=== PATIENT | male | born 1940 | race Caucasian/White ===

== ENCOUNTER 2017-06-23 23:37 | Inpatient (IN) | payer MEDICARE ==
[~2017-06-23] VITALS: Ht 175.3 cm; Wt 89.6 kg
[~2017-06-23 23:37] MED LIST: ASPI81TA82 PO; ATEN-102 PO; CALCTAB23 PO; COZA50TA PO; FERR1TAB7 PO; HYDR-3580 PO; LOVA40TA PO; PRIL20TA2 PO; RIVA10 PO; TAB-TAB PO; VITA10004 PO; Z.0.COMMODE-3:1; Z.0.WALKERFRONT
[2017-06-23 23:44] VITALS: BP 213/91; PULSE 74; RESP 18; TEMP 98; O2SAT 94
[2017-06-23] MEDS ORDERED: ASPI81CH25 PO (23:49)
[2017-06-23] MEDS ORDERED: ATEN25TA PO (23:50)
[2017-06-23] MEDS ORDERED: CALC500T43 PO (23:50)
[2017-06-23] MEDS ORDERED: VITA10002 PO (23:51)
[2017-06-23] MEDS ORDERED: LOVA40TA PO (23:51)
[2017-06-23] MEDS ORDERED: MULT1TAB64 (23:52)
[2017-06-24] VITALS (9 sets, daily range): BP systolic 105–195; BP diastolic 52–93; PULSE 52–79; RESP 16–22; TEMP 96.7–98.8; O2SAT 92–99
--- NOTE | 2017-06-24 00:24 | PD ---
HPI Chief Complaint: Fall Time Seen by Provider: 00:23 Travel History International Travel<30 days: No Contact w/Intl Traveler<30days: No Traveled to known affect area: No History of Present Illness HPI 76-year-old male arrives to the ER as a transfer from [facility] / cervical spine fractures caused by fall from a one single story rooftop. In ER he complains of pain in the region of the lower cervical spine and lower back which she attributes to the hard backboard. He describes chronic numbness and tingling in the hands bilaterally, worse on the right side no worse since the fall today. Pt takes aspirin, no anticoagulant otherwise. + Hx Afib and CABG. Pt accepted by trauma surgery as a transfer. Imaging from outside facility reveals nondisplaced fracture of the superior articular process of L1 and mildly displaced fractures of the bilateral L1 transverse processes and a nondisplaced fracture of the left posterior 12th rib. Thoracic spine CT reveals unstable 3 column fracture involving the T12 and L1 vertebral bodies as well as a nondisplaced fracture of the right T10 transverse process. Incidental note is made of diffuse ankylosis of the spine and potentially consistent with ankylosing spondylitis. CT cervical spine reveals fractures through the ventral bridging osteophyte of the C7 vertebral bodies with extension into the anterior inferior third of the vertebral body itself. There is a fracture through the C5 and C6 potential endplate osteophytes with minimal extension into the vertebral bodies anteriorly. Patient arrives with a [place] collar on. PFSH Past Medical History Cancer: No Cardiovascular Problems: Yes ([place]/ CABG (2003)) Diabetes: No (BORDERLINE) Endocrine: Yes Gastrointestinal Disorders: Yes (GERD) Genitourinary: Yes ([place]URIA) Hepatitis: No Hiatal Hernia: Yes Hypertension: Yes Immune Disorder: No Neurologic: No Psychiatric: No Respiratory: No Thyroid Disease: No Tetanus Vaccination: Unknown Influenza Vaccination: Yes Past Surgical History Abdominal Surgery: Yes (APPY) AICD: No Cardiac Surgery: Yes (CABG) Joint Replacement: No Pacemaker: No Other Surgery: Yes Social History Alcohol Use: Yes (occasional ) Tobacco Use: No Substance Use: No Allergies-Medications (Allergen,Severity, Reaction): Coded Allergies: meloxicam (Unverified Allergy, Unknown, WEAKNESS, 03/18/17) Uncoded Allergies: MERTHIOLATE (Allergy, Severe, RASH, 03/25/16) Reported Meds & Prescriptions Reported Meds & Active Scripts Active Reported Lovastatin 40 Mg Tab 40 Mg PO DAILY Calcium/Vitamin D (Calcium Carbonate-Vitamin D) 500-200 Mg-Unit Tab 1 Tab PO HS Atenolol 25 Mg Tab 25 Mg PO DAILY Review of Systems Except as stated in HPI: all other systems reviewed are Neg Physical Exam Narrative GENERAL: 76-year-old male well-nourished well-developed mild distress secondary to pain SKIN: Focused skin assessment warm/dry. HEAD: Atraumatic. Normocephalic. EYES: Pupils equal and round. No scleral icterus. No injection or drainage. Contusion about the left supraorbital ridge. Minimal subconjunctival hemorrhage. No hyphema either side. ENT: No nasal bleeding or discharge. Mucous membranes pink and moist. NECK: Trachea midline. No JVD. CARDIOVASCULAR: Regular rate and rhythm. No murmur appreciated. RESPIRATORY: No accessory muscle use. Clear to auscultation. Breath sounds equal bilaterally. GASTROINTESTINAL: Abdomen soft, non-tender, nondistended. Hepatic and splenic margins not palpable. MUSCULOSKELETAL: No obvious deformities. No clubbing. No cyanosis. No edema. NEUROLOGICAL: Moving all extremities normally. No focal cranial nerve deficit. Speech memory mentation normal. PSYCHIATRIC: Appropriate mood and affect; insight and judgment normal. Data Data Last Documented VS Vital Signs Date Time Temp Pulse Resp B/P (MAP) Pulse Ox O2 Delivery O2 Flow Rate FiO2 06/23/17 23:44 98.0 74 18 213/91 (131) 94 VS reviewed; repeat BP 186/86 Orders Orders Admit Order (Ed Use Only) (06/24/17 ) Personal Banking Representative / Telemetry [email or web address] (06/24/17 00:23) Vital Signs (Adult) Q4H (06/24/17 00:23) Activity Bed Rest (06/24/17 00:23) MDM Medical Decision Making Medical Screen Exam Complete: Yes Emergency Medical Condition: Yes Differential Diagnosis C-spine fracture, T-spine fracture, rib fracture Narrative Course Patient will be admitted to the [facility]. Case discussed with Dr. Oliver Peng stable here. Pain controlled with 0.5 mg hydromorphone in ER. Reports of imaging obtained here along with CD imaging. Diagnosis Primary Impression: Cervical spine fracture Additional Impressions: Fall Qualified Codes: W19.XXXA - Unspecified fall, initial encounter Fracture of lumbar spine Qualified Codes: S32.019A - Unspecified fracture of first lumbar vertebra, initial encounter for closed fracture Admitting Information Admitting Physician Requests: Jeremie Lane MD Jun 24, 2017 00:24
[2017-06-24] MEDS ORDERED: SODIUM CHLORIDE 0.9% FLUSH 10 ML FLUSH IV FLUSH PRN (00:30)
[2017-06-24] MEDS ORDERED: NALOXONE HCL 0.4 MG/ML AMP IV PUSH PRN (00:30)
[2017-06-24] MEDS ORDERED: Post-op Orders (for Pharmacy) MISC XX ONE (00:30)
[2017-06-24] MEDS ORDERED: ONDANSETRON HCL 4 MG/2 ML VIAL IV PUSH PRN (00:30)
[2017-06-24] MEDS: SODIUM CHLOR 0.9% 1000 ML INJ 1,000 ML IV SCH (01:32)
[2017-06-24] MEDS: MORPHINE SULFATE 4 MG/ML INJ IV PUSH PRN ×3 (02:23→08:02)
[2017-06-24] MEDS: PRAVASTATIN SOD 40 MG TAB PO SCH (08:02)
[2017-06-24] MEDS: ATENOLOL 25 MG TAB PO SCH (08:02)
[2017-06-24] MEDS: LIDOCAINE HCL 5% PATCH T-DERMAL SCH (08:03)
[2017-06-24] MEDS: FAMOTIDINE 20 MG TAB PO SCH ×2 (08:03→20:20)
[2017-06-24] MEDS: DOCUSATE SODIUM 50 MG/SENNA 8.6 MG TAB PO SCH ×2 (08:03→20:20)
[2017-06-24] MEDS: ACETAMINOPHEN 1000 MG/100 ML 100 ML IV SCH ×3 (08:03→20:21)
[2017-06-24] MEDS: POLYETHYLENE GLYCOL 17 GM PKG PO SCH (08:03)
[2017-06-24] MEDS: METHOCARBAMOL 500 MG TAB PO SCH ×2 (08:03→17:16)
[2017-06-24] MEDS: oxyCODONE/ACETAMINOPHEN 5 MG/325 MG TAB PO PRN ×2 (08:19→13:56)
--- NOTE | 2017-06-24 08:22 | RADRPT ---
EXAM DATE/TIME: 06/24/2017 07:58 [place] COMPARISON: No previous studies available for comparison. INDICATIONS : Shortness of breath and chest pain. Patient is a transfer from [facility] due to cervical spine and lenin mber spine fractures. MEDICAL HISTORY : Afib. SURGICAL HISTORY : CABG. ENCOUNTER: Initial ACUITY: 1 day PAIN SCORE: 7/10 LOCATION: Bilateral chest FINDINGS: A single view of the chest demonstrates the lungs to be symmetrically aerated without evidence of mas s, infiltrate or effusion. Median sternotomy wires in place. The cardiomediastinal contours are unre markable. Somewhat tortuous thoracic aorta. Osseous structures are intact. CONCLUSION: 1. No acute cardiopulmonary disease. Osman Brumfield MD on June 24, 2017 at 8:19 Board Certified Radiologist. This report was verified electronically.
[2017-06-24] MEDS: SODIUM CHLORIDE 0.9% FLUSH 10 ML FLUSH IV FLUSH SCH ×2 (09:00→20:21)
--- NOTE | 2017-06-24 10:01 | PD.CONS ---
(Jona Newman) [facility] Service Neurosurgery Consult Requested By Dr. Larsen Reason for Consult Cervical and T12/L1 fracture Primary Care Physician Unknown History of Present Illness This is a 76 y/o M who was up on his roof which he states is 8 feet when he thinks he slipped or lost his balance. He states when he fell to the ground he never lost consciousness. He crawled into the house and asked for help. He had neck pain when he was taken to the ER in [facility] and states this is now controlled. He denies any radiculopathy into the UEs at any time. He states he has numbness in the right 1-3rd fingers in the right hand which is chronic. He denies any numbness in the left hand or upper extremities otherwise. He denies any numbness or tingling in his torso or LEs. He currently denies any thoracic or low back pain or any radicular pain into the chest or LEs. He denies any weakness after his fall although currently he is aware of his fractures and is laying flat in bed and not moving. (Jona Newman) Service Neurosurgery History of Present Illness He relates that with the pain medications his neck and low back pain is better but he does experience pain in his neck and mid back area. He has a chronic history of low back pain and usually every 6 months he has exacerbations lasting a month or so. He also complains of chronic numbness in the right median nerve distribution in the upper extremity. He relates a history of coronary artery disease with revascularization the past and is actually followed by a data warehouse analyst with a stress test 1 1/2 years an echocardiogram 6 months ago. (Mckinley Jarrett MD) Review of Systems Constitutional: DENIES: Fever Eyes: DENIES: Blurred vision, Diplopia, Double Vision Respiratory: DENIES: Cough, Wheezing, Shortness of breath Cardiovascular: DENIES: Chest pain, Syncope Gastrointestinal: DENIES: Abdominal pain, Nausea, Vomiting Musculoskeletal: COMPLAINS OF: Back pain, Neck pain Neurologic: DENIES: Headache, Localized weakness Psychiatric: DENIES: Confusion, Agitation (Jona Newman) Past Family Social History Allergies: Coded Allergies: meloxicam (Unverified Allergy, Unknown, WEAKNESS, 03/18/17) Uncoded Allergies: MERTHIOLATE (Allergy, Severe, RASH, 03/25/16) Past Medical History CAD with hx of CABG in 2003 GERD HTN Past Surgical History CABG in 2003 Right hip replacement in 2016 Appendectomy Reported Medications ASA 81mg daily Atenolol 50mg daily Calcium and Vitamin D 500mg bid Ferrous Sulfate 130mg po daily Vitamin B12 CR po daily Lovastatin 40mg po qhs MVI po daily Prilosec otc 20mg po daily Active Ordered Medications Current Medications Sodium Chloride 1,000 ml @ 80 mls/hr [id number] IV Last administered on 01:32; Start 06/24/17 at 01:00 Sodium Chloride (NS Flush) 2 ml UNSCH PRN IV FLUSH FLUSH AFTER USING IV ACCESS ; Start 06/24/17 at 00:30 Sodium Chloride (NS Flush) 2 ml BID IV FLUSH ; Start 06/24/17 at 09:00 Ondansetron HCl (Zofran Inj) 4 mg Q6H PRN IV PUSH NAUSEA OR VOMITING; Start at 00:30 Famotidine (Pepcid) 20 mg BID PO Last administered on 06/24/17 08:03; Start 06/24/17 at 09:00 Miscellaneous Information (Post-op Orders (for Pharmacy)) STAT ONCE XX ; Start 06/24/17 at 00:30; Stop 06/24/17 at 00:53; Status DC Oxycodone/ Acetaminophen (Percocet 5-325 Mg) 1 tab Q4H PRN PO PAIN SCALE 3 TO 5 Last administered on 06/24/17 08:19; Start 06/24/17 at 00:30 Morphine Sulfate (Morphine Inj) 4 mg Q3H PRN IV PUSH PAIN 6-10 Last administered on 06/24/17 08:02; Start 06/24/17 at 00:30 Naloxone HCl (Narcan Inj) 0.4 mg UNSCH PRN IV PUSH SEE LABEL COMMENTS; Start 06/24/17 at 00:30 Atenolol (Tenormin) 25 mg DAILY PO Last administered on 06/24/17 08:02; Start 06/24/17 at 09:00 Pravastatin Sodium (Pravachol) 40 mg DAILY PO Last administered on 06/24/17 08:02; Start 06/24/17 at 09:00 Acetaminophen 100 ml @ 400 mls/hr Q6H IV Last administered on 06/24/17 08:03 ; Start 06/24/17 at 08:00; Stop 06/25/17 at 07:59 Methocarbamol (Robaxin) 500 mg Q8H PO ; Start 06/24/17 at 09:00 Lidocaine HCl (Lidoderm 5% Patch.12 Hr) 1 patch DAILY T-DERMAL Last administered on 06/24/17 08:03; Start 06/24/17 at 09:00 Senna/Docusate Sodium (Deanna-Colace) 1 tab BID PO Last administered on 08:03; Start 06/24/17 at 09:00 Lactulose (Lactulose Liq) 30 ml DAILY PRN PO No BM in 2 days; Start 06/24/17 at 07:30 Polyethylene Glycol (Miralax) 17 gm DAILY PO Last administered on 06/24/17 08 :03; Start 06/24/17 at 09:00 Miscellaneous Information 1 Q24H T-DERMAL ; Start 06/24/17 at 21:00 Bacitracin (Baciguent Oint) 1 applic Q12HR TOP ; Start 06/24/17 at 10:00 Family History Noncontributory to pts current condition. Social History Pt drinks alcohol occasionally on weekends, 3-4 beers when he does. Denies smoking No illicit drug use. (Jona Newman) Physical Exam Vital Signs Vital Signs Date Time Temp Pulse Resp B/P (MAP) Pulse Ox O2 Delivery O2 Flow Rate FiO2 06/24/17 08:21 18 06/24/17 08:21 18 06/24/17 08:04 97 21 06/24/17 08:00 97 Room Air 06/24/17 04:00 98.8 77 16 152/78 (102) 94 06/24/17 02:00 06/24/17 02:00 95 Room Air 06/24/17 02:00 98.8 70 22 195/93 (127) 95 06/24/17 01:34 72 18 186/80 (115) 99 Nasal Cannula 2.00 06/23/17 23:44 98.0 74 18 213/91 (131) 94 Physical Exam General: Pt resting in bed appearing in NAD. Eyes: Pupils equal, sclera anicteric. Resp: CTA bilaterally Heart: NSR no murmurs Abd: Soft positive bs Skin: Minor abrasions and left periorbital ecchymosis around the left eye. Muscle: Moves all 4 extremities with good strength. [place] cervical collar in place. Pt on bedrest with log roll precautions. Neuro: Pt awake and alert. Pupils 3mm bilaterally, reactive bilaterally. Speech clear and appropriate. Follows commands well. Sensation intact in all 4 extremities, hx of right 1-3 numbness. Laboratory Laboratory Tests Test 06/24/17 09:00 (Jona Newman) Imaging Last Impressions Chest X-Ray 06/24/17 0000 Signed Impressions: Service Date/Time: Saturday, June 24, 2017 07:58 - CONCLUSION: 1. No acute cardiopulmonary disease. Osman Brumfield MD (Jona Newman) Imaging CT [facility] the [facility] from [facility] on 04/23/2017 did not reveal any intracranial acute abnormality. Slightly displaced nasal bone fractures noted. CT of the cervical spine reveals extensive spondylitic changes as well as the anterior inferior C5 and and anterior superior C6 vertebral body fractures. His also fracture at the C7 vertebral body. CT of the thoracic and lumbar spine spine reveals a 3 column injury at the T12- L1 vertebral body extending to the inferior aspect of the T12 and L1 superior aspect of the vertebral body into the facets with an ankylosing spondylitis break. There is a extensive multilevel ankylosing spondylitis fusion in the thoracolumbar as well as degenerative changes in the lumbar spine with facet arthropathy and osteopenia. (Mckinley Jarrett MD) Assessment and Plan Assessment and Plan A: 76 y/o M s/p fall from roof pt estimates 8-10 feet without LOC. P: Pt will maintain cervical collar at all times. He is on bedrest with log roll precautions with HOB flat. Continue with GI prophylaxis Continue with SCDs. Dr. Jarrett reviewing films from [facility] for further planning of his multiple spine fractures. (Jona Newman) Assessment and Plan 1. C5-6 vertebral body fractures involving the anterior column with preserved facet consistent with an ankylosing spondylitis break. There is also a nondisplaced C7 vertebral body anterior fracture. 2. T12/L1 chance type fracture involving all 3 columns through the inferior aspect of T12 and superior aspect of the L1 vertebral body and facet consistent with an ankylosing spondylitis break. 3. Nasal bone fracture. 4. Rib fractures. The thoracolumbar spine junction fracture is an unstable injury and it appears that the cervical fracture may potentially be unstable also given the ankylosing spondylitis breaks. We will keep him on bedrest with cervical collar and spinal logroll precautions. MRI of the cervical thoracic and lumbar spine will be obtained to evaluate for stenosis and soft tissue/ligamentous disruption. He will likely require surgical stabilization if there are no cardiac/medical issues. We will obtain an echocardiogram to assess LV function also. Discussed with the patient at length as well as trauma surgeon. (Mckinley Jarrett MD) Jona Newman Jun 24, 2017 10:01 Mckinley Jarrett MD Jun 24, 2017 16:29
--- NOTE | 2017-06-24 10:52 | PD.HHIRBSE ---
Patient History Record/History Review Reason for Referral: The patient is a 76 year old unknown handed male status post traumatic injury sustained on 06/23/2017. He fell from a single story roof. He sustained C5-6 fractures, T12 -L1 fracture, although head CT was within normal limits, and he reported no concussive symptoms. He is referred for baseline neurobehavioral status examination per trauma protocol to assess cognitive, behavioral and emotional aspects of the injury and to provide treatment recommendations. Neuropsych Precautions: To be determined. Past Surgical/Medical History Past Surgery: Yes Major surgery in last 100 days: Unknown Hx Anesthesia Reactions: No Hx Orthopedic Surgery: Yes (right hip) Hx Cardiac Surgery: Yes (3 bypass 2003) Hx Chest Surgery: No Hx Abdominal Surgery: No Hx Genitourinary Surgery: No Hx Endocrine Surgery: No Hx Eye Surgery: No Hx Ear Surgery: No Hx Oral Surgery: Yes (tooth extraction) Hx of Neuro Prob: No Hx Head Injury: Yes ( concussion) Hx Arthritis: Yes Hx of Cardiovascular Prob: Yes Hypertension (High Blood Press: Yes Hx Clotting Problems: No Hx Chest Pain: Yes Hx of Respiratory Problem: No Hx of GI Problems: Yes (GERD) Hx Hiatal Hernia: Yes Hx of Problems: Yes Hx Renal Disease: No Hx Prostate Problems: Yes (enlarged) Hx of Immuno Disor: No Hx Autoimmune Disease: No Hx of Endocrine Problems: Yes Hx Thyroid Disease: No Hx Diabetes: No (borderline) Hx of Hearing or Ear Problems: Yes ([place] Hard of Hearing: Bilateral Hx Dental Problems: Yes Hx Psychiatric Problems: No Hx Blood Dyscrasias: No Hx of MDRO: No Hx of MRSA: No Hx of VRE: No Hx of CDIFF: No Hx of Tuberculosis: No Hx Pacemaker: No Hx Internal Defibrillator: No Hx Joint Replacement: Yes (hip replacement) Blood Transfusion History Will receive Blood /Blood prod: Yes Hx Blood Transfusions: Yes Hx Blood Transfusion Reaction: No Medication Active Medications Acetaminophen 100 ml @ 400 mls/hr Q6H IV Last administered on 06/24/17 08:03 ; Admin Dose 400 MLS/HR; Start 06/24/17 at 08:00; Stop 06/25/17 at 07:59 Atenolol (Tenormin) 25 mg DAILY PO Last administered on 06/24/17 08:02; Admin Dose 25 MG; Start 06/24/17 at 09:00 Bacitracin (Baciguent Oint) 1 applic Q12HR TOP; Start 06/24/17 at 10:00 Famotidine (Pepcid) 20 mg BID PO Last administered on 06/24/17 08:03; Admin Dose 20 MG; Start 06/24/17 at 09:00 Lactulose (Lactulose Liq) 30 ml DAILY PRN PO; Start 06/24/17 at 07:30 Lidocaine HCl (Lidoderm 5% Patch.12 Hr) 1 patch DAILY T-DERMAL Last administered on 06/24/17 08:03; Admin Dose 1 PATCH; Start 06/24/17 at 09:00 Methocarbamol (Robaxin) 500 mg Q8H PO Last administered on 06/24/17 08:03; Admin Dose 500 MG; Start 06/24/17 at 09:00 Miscellaneous Information 1 Q24H T-DERMAL; Start 06/24/17 at 21:00 Miscellaneous Information (Post-op Orders (for Pharmacy)) STAT ONCE XX; Start 06/24/17 at 00:30; Stop 06/24/17 at 00:53; Status DC Morphine Sulfate (Morphine Inj) 4 mg Q3H PRN IV PUSH Last administered on 06/24 08:02; Admin Dose 4 MG; Start 06/24/17 at 00:30 Naloxone HCl (Narcan Inj) 0.4 mg UNSCH PRN IV PUSH; Start 06/24/17 at 00:30 Ondansetron HCl (Zofran Inj) 4 mg Q6H PRN IV PUSH; Start 06/24/17 at 00:30 Oxycodone/ Acetaminophen (Percocet 5-325 Mg) 1 tab Q4H PRN PO Last administered on 06/24/17 08:19; Admin Dose 1 TAB; Start 06/24/17 at 00:30 Polyethylene Glycol (Miralax) 17 gm DAILY PO Last administered on 06/24/17 08: 03; Admin Dose 17 GM; Start 06/24/17 at 09:00 Pravastatin Sodium (Pravachol) 40 mg DAILY PO Last administered on 06/24/17 08 :02; Admin Dose 40 MG; Start 06/24/17 at 09:00 Senna/Docusate Sodium (Deanna-Colace) 1 tab BID PO Last administered on 08:03; Admin Dose 1 TAB; Start 06/24/17 at 09:00 Sodium Chloride 1,000 ml @ 80 mls/hr [id number] IV Last administered on 01:32; Admin Dose 80 MLS/HR; Start 06/24/17 at 01:00 Sodium Chloride (NS Flush) 2 ml BID IV FLUSH; Start 06/24/17 at 09:00 Sodium Chloride (NS Flush) 2 ml UNSCH PRN IV FLUSH; Start 06/24/17 at 00:30 Mental Status Assessment Orientation: oriented to Self, oriented to Place, oriented to Time, oriented to Situation Mental Status: WFL: Thought processing, Language/Interactions, Attention, Learning/Memory, Problem-Solving, Visuospatial/Construction, Self-regulation, Other Observation The patient is alert and oriented to person, place, time and circumstances surrounding the reason for hospitalization. In terms of attention skills, the patient was able to remain on task and remember basic and complex instructions. In terms of memory functioning, the patient was able to demonstrate adequate carryover of information during conversations. The patient initiated spontaneous conversation. Speech was characterized by adequate prosody, grammar , articulation, volume and rate. Basic naming skills were intact. Language repetition skills were intact. The patients comprehensions for basic one- and two-stage commands were intact. Basic verbal abstraction and problem-solving skills were intact. The patient appears to posses adequate insight and awareness into their situation and within the limits of this brief evaluation, adequate judgment. Impression Baseline cognition. Adjustment/Coping Assessment Adjustment/Coping: None: Depression, Anxiety, Pain Observation The patients thought content was free from suicidal, homicidal or paranoid ideation, and the patients thought processes were logical and goal-directed. The patients mood was euthymic, and affect was stable and appropriate. LTG Status: Deferred STG Status: Deferred Team Members: Neuropsychologist Behavior Assessment Agitation: None Treatment Engagement: Average Observation Behaviorally, the patient demonstrated no signs of agitation, impulsivity or disinhibition. There was no remarkable evidence of a formal thought disorder or psychosis. LTG - Status: Deferred STG Status: Deferred Team Members: Neuropsychologist Diagnosis/Discharge Plan Impression 76 year old man s/p fall from roof with vertebral fractures at C5-6 and T12-L1. No indication of concussive type injury. Diagnosis: (1) Cervical spine fracture Status: Acute (2) Fracture of lumbar spine Status: Acute Maximizing acute care outcome It is recommended that the patient be monitored for potential neurocognitive issues as the medical condition evolves. This patients neuropathological challenges may limit his rehabilitation potential going forward, and these challenges will require specialized therapeutic skills to maximize outcome. Additionally, the patients family is experiencing ongoing issues of adjustment given the traumatic nature of the injury, and they may benefit from ongoing psychological assistance. At this point in the recovery process, the patient does have cognitive capacity as the patient is able to understand a situation and its likely consequences, and he is able to manipulate information rationally. Cognitive capacity will be assessed throughout the recovery process. Discharge Planning Anticipated Problems Ongoing areas of concern will include potential neurocognitive issues, which would be expected to improve with time and treatment. Presently, the patient is following commands. Treatment Plan This clinician will continue to follow with you throughout the course of this patients acute care treatment, and I will be available to meet with the patient s family/support system to facilitate their understanding and the ongoing care of their family member. The goals of neuropsychological intervention shall be both educational and supportive to the family/support system as is deemed clinically appropriate. Discharge Needs TBD. Thank you Thank you for the opportunity to assist in this patients care. Catracho Lemon, Ph.D., ABPP Board Certified in Clinical Neuropsychology [employer] [employer] [place] Licensed Psychologist #[id number] Problem Qualifiers (1) Cervical spine fracture: (2) Fracture of lumbar spine: Qualified Codes: S32.019A - Unspecified fracture of first lumbar vertebra, initial encounter for closed fracture Catracho Lemon PhD Jun 24, 2017 10:52 am
[2017-06-24 10:58] LABS: AUTOMATED NEUTROPHIL # 10.1 TH/MM3 (1.8-7.7); BASOPHIL % 0.1 % (0.0-2.0); HEMATOCRIT 38.3 % (39.0-51.0); HEMO FLAGS DIFF FINAL; LYMPH % 9.2 % (9.0-44.0); LYMPHOCYTE # 1.1 TH/MM3 (1.0-4.8); MEAN CELL VOLUME 83.9 FL (80.0-100.0); MEAN CORPUSCULAR HEMOGLOBIN 27.7 PG (27.0-34.0); MONO % 7.9 % (0.0-8.0); NEUT % 82.8 % (16.0-70.0); PLATELET COUNT 125 TH/MM3 (150-450); RED BLOOD COUNT 4.57 MIL/MM3 (4.50-5.90); RED CELL DISTRIBUTION WIDTH 14.4 % (11.6-17.2); WHITE BLOOD COUNT 12.2 TH/MM3 (4.0-11.0)
[2017-06-24 11:19] LABS: BICARBONATE 28.2 MEQ/L (21.0-32.0)
[2017-06-24 11:51] LABS: MRSA PCR NEGATIVE (NEGATIVE); STAPH AUREUS PCR NEGATIVE (NEGATIVE)
[2017-06-24] MEDS ORDERED: SODIUM CHLORIDE 0.65% NASAL SPRAY 45 ML BTL NASAL PRN (14:15)
--- NOTE | 2017-06-24 14:43 | HHI.CCPN ---
Subjective Brief History 76-year-old male fell off the roof was initially transferred to [facility] then transferred to trauma transfer. Patient sustained significant injuries including Fracture of the anterior plate of C5 and C6 Unstable comminuted fracture of T12-L1 And 12th rib fracture on the left Patient's been placed in ICU appropriate c-collar is applied According to neurosurgery patient will undergo thoracolumbar fusion for this unstable fracture while the C-spine injury will heal on its 24 Hour Review/Hospital Course Patient has been stable since admission to ICU He remains neurologically intact Neurosurgery consult greatly appreciated Patient is scheduled to undergo thoracolumbar fusion by Dr. Jarrett Objective Vital Signs Date Time Temp Pulse Resp B/P (MAP) Pulse Ox O2 Delivery O2 Flow Rate FiO2 06/24/17 12:00 98.0 57 16 110/59 (76) 92 06/24/17 08:04 21 06/24/17 08:00 Room Air 06/24/17 01:34 2.00 Intake and Output 06/24/17 06/24/17 06/25/17 08:00 16:00 00:00 Intake Total 100 ml Output Total 500 ml Balance -400 ml Result Diagram: 06/24/17 1035 06/24/17 1035 Imaging Last 24 hours Impressions Chest X-Ray 06/24/17 0000 Signed Impressions: Service Date/Time: Saturday, June 24, 2017 07:58 - CONCLUSION: 1. No acute cardiopulmonary disease. Osman Brumfield MD Exam WINE AND SPIRITS CLERK Awake alert oriented neurologically fully intact Hemodynamic/Cardiac Hemodynamically stable Pulmonary/Respiratory Bilateral good breath sounds good pulmonary excursion patient is minimal pain Abdomen/GI Nutrition Abdomen soft diet tolerated Assessment and Plan Attestation Critical care 35 minutes Patient can transfer to the floor depending on the timing of thoracolumbar fusion Pramod Larsen MD Jun 24, 2017 14:43
--- NOTE | 2017-06-24 15:10 | MH ---
cc: PRAMOD BARROS MD DATE OF ADMISSION: 06/24/2017 ADMITTING DIAGNOSIS Fall from roof, unstable fracture of T12-L1 vertebral body and fracture through C5-C6 endplate. HISTORY OF PRESENT DISEASE This 76-year-old male was working on a roof somewhere in [place] and was transferred to [facility] after he fell off the roof. He was worked up and found to have the above-noted injuries. I was asked to accept the patient in transfer which was readily done. PAST MEDICAL HISTORY 1. Coronary artery disease and atrial fibrillation. He is not on anticoagulants. 2. Borderline diabetes mellitus. 3. Hiatal hernia. 4. Reflux. 5. Hypertension PAST SURGICAL HISTORY Coronary artery bypass surgery in 2003. MEDICATIONS 1. Lovastatin. 2. Atenolol. ALLERGIES MELOXICAM. PHYSICAL EXAMINATION GENERAL: A pleasant 76-year-old gentleman awake, alert and oriented. HEENT: Normocephalic. Trauma to the head consistent with several bruises over the face. Pupils are equally reactive. Extraocular muscles intact. No hemotympanum. No Pemberton's sign or raccoon eyes. NECK: Bilateral carotid pulses. No bruits. No signs of trauma to the neck. On external palpation, however, the patient has a C-collar on in the face of the anterior plate fractures of C5 and C6. CHEST: Bilateral breath sounds. HEART: Regular rhythm. Hemodynamically the patient is stable. He is not in atrial fibrillation. ABDOMEN: Soft. Active bowel sounds. No rebound. No guarding. No masses. No signs of trauma to the abdomen. EXTREMITIES: The patient has bilateral femoral popliteal, dorsalis pedis and posterior tibial pulses, bilateral brachial, ulnar and radial pulses. No deformities of the extremities. BACK: Examination of the back reveals tenderness in the lower back which is consistent with the above injuries but no major swelling. NEUROLOGIC: The patient is fully neurologically intact. His [place] Coma Scale is 15. He has bilateral equal motoric strength. No lateralization. Sensory preserved. He has some tingling in his left hand but he states that it has been there for years. ASSESSMENT AND RECOMMENDATIONS A 76-year-old male with above-noted injuries. He will be admitted to the ICU. Neurosurgery is consulted. The patient will likely require thoracolumbar fusion for this unstable fracture but I will leave this up to neurosurgery. Pramod HADDAD /2:39 PM /3:04 PM
--- NOTE | 2017-06-24 15:17 | RADRPT ---
EXAM DATE/TIME: 06/24/2017 14:15 [facility] COMPARISON: No previous studies available for comparison. INDICATIONS : Trauma. MEDICAL HISTORY : Hypertension. SURGICAL HISTORY : CABG Right hip replacement ENCOUNTER: Initial ACUITY: 2 day PAIN SCORE: 4/10 LOCATION: t-spine TECHNIQUE: Multiplanar multisequence MRI of the thoracic spine was performed. FINDINGS: There is marked discogenic edema around the T12-L1 level, it is better imaged on the lumbar spine MRI . VERTEBRA: Normal vertebral body height. Homogeneous marrow signal. ALIGNMENT: Normal. CORD: Normal position and configuration. T1-T2: Normal. T2-T3: The thecal sac has a normal diameter. No evidence of disc bulge or protrusion. T3-T4: The thecal sac has a normal diameter. No evidence of disc bulge or protrusion. T4-T5: The thecal sac has a normal diameter. No evidence of disc bulge or protrusion. T5-T6: The thecal sac has a normal diameter. No evidence of disc bulge or protrusion. T6-T7: The thecal sac has a normal diameter. No evidence of disc bulge or protrusion. T7-T8: The thecal sac has a normal diameter. No evidence of disc bulge or protrusion. Prominent posterior o steophytes at T7-8. T8-T9: The thecal sac has a normal diameter. No evidence of disc bulge or protrusion. T9-T10: The thecal sac has a normal diameter. No evidence of disc bulge or protrusion. T10-T11: The thecal sac has a normal diameter. No evidence of disc bulge or protrusion. T11-T12: The thecal sac has a normal diameter. No evidence of disc bulge or protrusion. T12-L1: The thecal sac has a normal diameter. No evidence of disc bulge or protrusion. CONCLUSION: Normal examination of the thoracic spine. Marked discogenic edema at the T12-L1 level. There may be s ome epidural collection at that level defer to the lumbar spine MRI for complete characterization. Ivan Patterson MD on June 24, 2017 at 15:13 Board Certified Radiologist. This report was verified electronically.
--- NOTE | 2017-06-24 15:44 | RADRPT ---
EXAM DATE/TIME: 06/24/2017 14:15 [facility] COMPARISON: No previous studies available for comparison. INDICATIONS : Trauma. Back pain. MEDICAL HISTORY : Hypertension. SURGICAL HISTORY : CABG Right hip replacement. ENCOUNTER: Initial ACUITY: 2 day PAIN SCORE: 4/10 LOCATION: Lumbar spine. TECHNIQUE: Multiplanar multisequence MRI of the lumbar spine was performed without contrast. FINDINGS: There is marked discogenic edema on the T12-L1 level. There is increased disc dessicat ion at L1-2, L2-3, L4-5 and L5-S1. There is an epidural collection posterior to the thecal sac beginning at the T12-L1 level and extendi ng inferiorly down below the L2-3 level. It extends for at least 6.7 cm in cephalocaudad height. It displaces the thecal sac anteriorly. It is slightly to the left of midline. It is 9 x 9 mm across. With the given history of trauma obviously hematoma is in the differential although that does not ex plain the T12-L1 edema which is more like discitis. The most caudal appearing lumbar vertebra is numbered as L5. T12-L1: No thecal sac narrowing. L1-L2: There is no disc herniation or protrusion. Thecal sac is anteriorly displaced due to the epi dural process posteriorly. L2-L3: Diffuse annular bulge. There is some mild flattening of the thecal sac. The disc bulge abut s the left nerve root of L2. L3-L4: There is a broad-based diffuse annular bulge. Nerve roots exit without difficulty. Mild deg enerative facet disease. L4-L5: Broad based diffuse annular bulge. There is posterior element hypertrophy and a moderate can al stenosis. L5-S1: Broad bulge. CONCLUSION: 1. Discogenic edema on the T12-L1 level with vertebral body edema. The disc space height is still pr eserved. It is an unusual pattern for trauma. Discitis is within the differential. 2. Elongated epidural collection beginning at T12-L1 and extending at least 6.7 cm inferiorly likely epidural process such as either hematoma or infection, correlate clinically. Ivan Patterson MD on June 24, 2017 at 15:19 Board Certified Radiologist. This report was verified electronically.
--- NOTE | 2017-06-24 16:03 | RADRPT ---
EXAM DATE/TIME: 06/24/2017 14:15 [facility] COMPARISON: No previous studies available for comparison. INDICATIONS : Trauma, radiculopathy. MEDICAL HISTORY : Hypertension. SURGICAL HISTORY : CABG Right hip replacement. ENCOUNTER: Initial ACUITY: 2 day PAIN SCORE: 3/10 LOCATION: C-spine TECHNIQUE: Multiplanar, multisequence MRI examination of the cervical spine was performed. FINDINGS: MRI cervical spine demonstrate there is a large prevertebral hematoma epi-centered around the C3-4 di sc space level. There is also questionable posterior element hypertrophy or maybe even a small area of fluid posterior to the C5-6 disc space level. The cervical cord is normal in shape. The cerebell um is unremarkable. On the sagittal IR images I do not see any definite bony fracture or edema. There is some inhomogene ity involving the 5-6 disc space. There is also edema in the posterior soft tissues of the neck. I do not see any definite bone fracture but I am concerned about the C5-6 disc space level. I do not h ave access to a non-contrast CT scan of the cervical spine if one has been performed. CONCLUSION: 1. Very impressive prevertebral soft tissue swelling and hematoma in the upper cervical spine. I do not see any definite fracture on the IR images in the upper cervical spine. 2. Impressive posterior soft tissue edema and some fullness of the epidural space posterior to the C 5-6 level. I do not have access to a non-contrast CT scan if one has been performed or if there is a known fracture. Ivan Patterson MD on June 24, 2017 at 15:25 Board Certified Radiologist. This report was verified electronically.
[2017-06-24] MEDS: BACITRACIN TOP OINT 15 GM TUBE TOP SCH ×2 (17:16→21:00)
--- NOTE | 2017-06-24 19:14 | EKG ---
Date Performed: 06/24/2017 Time Performed: 00:54:37 PTAGE: 76 years EKG: Sinus rhythm WITH FIRST DEGREE AV BLOCK NONSPECIFIC T-WAVE ABNORMALITY Possible left ventricular hypertrophy Low limb lead voltage ABNORMAL ECG PREVIOUS TRACING : 03/25/2016 08.35 Compared to prior tracing no significant change DOCTOR: Otis Gong Interpretating Date/Time 06/24/2017 19:13:02
[2017-06-24] MEDS: REMOVE OLD LIDOCAINE PATCH T-DERMAL SCH (21:00)
[2017-06-25] VITALS (7 sets, daily range): BP systolic 111–197; BP diastolic 58–99; PULSE 55–84; RESP 14–30; TEMP 97.9–98.8; O2SAT 93–97
[2017-06-25] MEDS: METHOCARBAMOL 500 MG TAB PO SCH ×3 (00:36→16:11)
[2017-06-25] MEDS: SODIUM CHLOR 0.9% 1000 ML INJ 1,000 ML IV SCH ×2 (00:37→16:10)
[2017-06-25] MEDS: ACETAMINOPHEN 1000 MG/100 ML 100 ML IV SCH (03:36)
[2017-06-25] MEDS: LACTULOSE SYRUP 20 GM/30 ML CUP PO PRN (04:18)
[2017-06-25 05:01] LABS: APTT (PATIENT) 25.2 SEC (24.3-30.1); PROTHROMBIN TIME - PATIENT 10.7 SEC (9.8-11.6)
[2017-06-25 05:09] LABS: BICARBONATE 26.4 MEQ/L (21.0-32.0); POTASSIUM 3.7 MEQ/L (3.5-5.1)
[2017-06-25 05:21] LABS: AUTOMATED NEUTROPHIL # 11.7 TH/MM3 (1.8-7.7); BASOPHIL % 0.2 % (0.0-2.0); EOSINOPHIL % 0.3 % (0.0-4.0); HEMATOCRIT 40.4 % (39.0-51.0); HEMO FLAGS DIFF FINAL; LYMPH % 7.9 % (9.0-44.0); LYMPHOCYTE # 1.1 TH/MM3 (1.0-4.8); MEAN CELL VOLUME 84.1 FL (80.0-100.0); MEAN CORPUSCULAR HEMOGLOBIN 28.4 PG (27.0-34.0); MEAN CORPUSCULAR HGB CONC 33.7 % (32.0-36.0); NEUT % 84.6 % (16.0-70.0); PLATELET COUNT 108 TH/MM3 (150-450); RED BLOOD COUNT 4.81 MIL/MM3 (4.50-5.90); RED CELL DISTRIBUTION WIDTH 14.3 % (11.6-17.2); WHITE BLOOD COUNT 13.8 TH/MM3 (4.0-11.0)
[2017-06-25] MEDS: oxyCODONE/ACETAMINOPHEN 5 MG/325 MG TAB PO PRN (08:06)
[2017-06-25] MEDS: ATENOLOL 25 MG TAB PO SCH (08:06)
[2017-06-25] MEDS: LIDOCAINE HCL 5% PATCH T-DERMAL SCH (08:06)
[2017-06-25] MEDS: POLYETHYLENE GLYCOL 17 GM PKG PO SCH (08:06)
[2017-06-25] MEDS: PRAVASTATIN SOD 40 MG TAB PO SCH (08:06)
[2017-06-25] MEDS: FAMOTIDINE 20 MG TAB PO SCH ×2 (08:06→20:33)
[2017-06-25] MEDS: DOCUSATE SODIUM 50 MG/SENNA 8.6 MG TAB PO SCH ×2 (08:06→20:33)
[2017-06-25] MEDS: SODIUM CHLORIDE 0.9% FLUSH 10 ML FLUSH IV FLUSH SCH ×2 (08:07→20:33)
[2017-06-25] MEDS: BACITRACIN TOP OINT 15 GM TUBE TOP SCH ×2 (08:07→21:09)
--- NOTE | 2017-06-25 08:30 | HHI.NSPN ---
(Jona Newman) History Chief Complaint: low back discomfort. (Jona Newman) Interval History This is a 76 y/o M who was up on his roof which he states is 8 feet when he thinks he slipped or lost his balance. He states when he fell to the ground he never lost consciousness. He crawled into the house and asked for help. He had neck pain when he was taken to the ER in [facility] and states this is now controlled. He denies any radiculopathy into the UEs at any time. He states he has numbness in the right 1-3rd fingers in the right hand which is chronic. He denies any numbness in the left hand or upper extremities otherwise. He denies any numbness or tingling in his torso or LEs. He currently denies any thoracic or low back pain or any radicular pain into the chest or LEs. He denies any weakness after his fall although currently he is aware of his fractures and is laying flat in bed and not moving. He relates that with the pain medications his neck and low back pain is better but he does experience pain in his neck and mid back area. He has a chronic history of low back pain and usually every 6 months he has exacerbations lasting a month or so. He also complains of chronic numbness in the right median nerve distribution in the upper extremity. He relates a history of coronary artery disease with revascularization the past and is actually followed by a geochemical manager with a stress test 1 1/2 years an echocardiogram 6 months ago. 06/25/17: Pt complains of low back pain. Neck pain and thoracic spine pain controlled with pain medication. No radiculopathy in UEs or LEs. No paresthesias in UEs or LEs, other than chronic right 1-3rd fingers. (Jona Newman) Review of Systems General: Negative for: fever, chills, insomnia Respiratory: Negative for: shortness of breath, cough, sputum Cardiovascular: Negative for: chest pain Gastrointestinal: Negative for: nausea, vomitting, diarrhea, constipation ( Jona Newman) Exam Results Vital Signs Date Time Temp Pulse Resp B/P (MAP) Pulse Ox O2 Delivery O2 Flow Rate FiO2 06/25/17 04:00 98.1 78 14 178/84 (115) 97 06/24/17 22:19 21 06/24/17 19:00 Room Air 06/24/17 01:34 2.00 Intake and Output 06/25/17 06/25/17 06/26/17 08:00 16:00 00:00 Output Total 2 ml Balance -2 ml (Jona Newman) Physical Examination General: Pt resting in bed appearing in NAD. Eyes: Pupils equal, sclera anicteric. Resp: CTA bilaterally Heart: NSR no murmurs Abd: Soft positive bs Skin: Minor abrasions and left periorbital ecchymosis around the left eye. Muscle: Moves all 4 extremities with good strength. Bath cervical collar in place. Pt on bedrest with log roll precautions. Neuro: Pt awake and alert. Pupils 3mm bilaterally, reactive bilaterally. Speech clear and appropriate. Follows commands well. Sensation intact in all 4 extremities, chronic hx of right 1-3 finger numbness. (Jona Newman) Lab, Micro, Other Results Last Impressions Thoracic Spine MRI 06/24/17 0000 Signed Impressions: Service Date/Time: Saturday, June 24, 2017 14:15 - CONCLUSION: Normal examination of the thoracic spine. Marked discogenic edema at the T12-L1 level. There may be some epidural collection at that level defer to the lumbar spine MRI for complete characterization. Ivan Patterson MD Lumbar Spine MRI 06/24/17 0000 Signed Impressions: Service Date/Time: Saturday, June 24, 2017 14:15 - CONCLUSION: 1. Discogenic edema on the T12-L1 level with vertebral body edema. The disc space height is still preserved. It is an unusual pattern for trauma. Discitis is within the differential. 2. Elongated epidural collection beginning at T12- L1 and extending at least 6.7 cm inferiorly likely epidural process such as either hematoma or infection, correlate clinically. Ivan Patterson MD Chest X-Ray 06/24/17 0000 Signed Impressions: Service Date/Time: Saturday, June 24, 2017 07:58 - CONCLUSION: 1. No acute cardiopulmonary disease. Osman Brumfield MD Cervical Spine MRI 06/24/17 0000 Signed Impressions: Service Date/Time: Saturday, June 24, 2017 14:15 - CONCLUSION: 1. Very impressive prevertebral soft tissue swelling and hematoma in the upper cervical spine. I do not see any definite fracture on the IR images in the upper cervical spine. 2. Impressive posterior soft tissue edema and some fullness of the epidural space posterior to the C5-6 level. I do not have access to a non-contrast CT scan if one has been performed or if there is a known fracture. Ivan Patterson MD Laboratory Tests Test 06/24/17 09:00 06/24/17 10:35 06/25/17 04:34 Nasal Screen MRSA (PCR) NEGATIVE Staphylococcus aureus (PCR)(LAB) NEGATIVE White Blood Count 12.2 TH/MM3 13.8 TH/MM3 Red Blood Count 4.57 MIL/MM3 4.81 MIL/MM3 Hemoglobin 12.7 GM/DL 13.6 GM/DL Hematocrit 38.3 % 40.4 % Mean Corpuscular Volume 83.9 FL 84.1 FL Mean Corpuscular Hemoglobin 27.7 PG 28.4 PG Mean Corpuscular Hemoglobin Concent 33.0 % 33.7 % Red Cell Distribution Width 14.4 % 14.3 % Platelet Count 125 TH/MM3 108 TH/MM3 Mean Platelet Volume 8.0 FL 8.1 FL Neutrophils (%) (Auto) 82.8 % 84.6 % Lymphocytes (%) (Auto) 9.2 % 7.9 % Monocytes (%) (Auto) 7.9 % 7.0 % Eosinophils (%) (Auto) 0.0 % 0.3 % Basophils (%) (Auto) 0.1 % 0.2 % Neutrophils # (Auto) 10.1 TH/MM3 11.7 TH/MM3 Lymphocytes # (Auto) 1.1 TH/MM3 1.1 TH/MM3 Monocytes # (Auto) 1.0 TH/MM3 1.0 TH/MM3 Eosinophils # (Auto) 0.0 TH/MM3 0.0 TH/MM3 Basophils # (Auto) 0.0 TH/MM3 0.0 TH/MM3 CBC Comment DIFF FINAL DIFF FINAL Differential Comment Blood Urea Nitrogen 20 MG/DL 18 MG/DL Creatinine 1.14 MG/DL 0.71 MG/DL Random Glucose 123 MG/DL 100 MG/DL Calcium Level 8.4 MG/DL 8.4 MG/DL Sodium Level 142 MEQ/L 140 MEQ/L Potassium Level 4.0 MEQ/L 3.7 MEQ/L Chloride Level 104 MEQ/L 103 MEQ/L Carbon Dioxide Level 28.2 MEQ/L 26.4 MEQ/L Anion Gap 10 MEQ/L 11 MEQ/L Estimat Glomerular Filtration Rate 62 ML/MIN 108 ML/MIN Prothrombin Time 10.7 SEC Prothromb Time International Ratio 1.0 RATIO Activated Partial Thromboplast Time 25.2 SEC (Jona Newman) Medical Decision Making Impression and Plan A: 76 y/o M s/p fall from roof pt estimates 8-10 feet without LOC. C5-6 vertebral body fractures involving the anterior column with preserved facet consistent with an ankylosing spondylitis break. There is also a nondisplaced C7 vertebral body anterior fracture. 2. T12/L1 chance type fracture involving all 3 columns through the inferior aspect of T12 and superior aspect of the L1 vertebral body and facet consistent with an ankylosing spondylitis break. 3. Nasal bone fracture. 4. Rib fractures. P: Pt will maintain cervical collar at all times. He is on bedrest with log roll precautions with HOB flat. Continue with GI prophylaxis with Protonix Continue with SCDs. The thoracolumbar spine junction fracture is an unstable injury and it appears that the cervical fracture may potentially be unstable also given the ankylosing spondylitis breaks. We will keep him on bedrest with cervical collar and spinal logroll precautions. MRI was obtained and will be reviewed for OR planning. Discussed plan with RN at bedside (Jona Newman) Attending Statement The exam, history, and the medical decision-making described in the above note were completed with the assistance of the mid-level provider. I reviewed and agree with the findings presented. I attest that I had a [id number] encounter with the patient on the same day, and personally performed and documented my assessment and findings in the medical record. Discussed treatment options for his C5-6 fracture with associated stenosis as well as at T12-L1 ankylosing spondylitis/chance fractures including nonsurgical management to the brace use versus surgical intervention along the risks and benefits involved. He is requesting to proceed with surgical intervention and initially we'll undertake the cervical anterior decompression with stabilization at C5-6 if his thrombocytopenia and does not worsen or the next day or 2. Seems to have good the LV function on the echocardiogram. Continue with the chemical and mechanical DVT prophylaxis and pain control. (Mckinley Jarrett MD) Jona Newman Jun 25, 2017 08:30 Mckinley Jarrett MD Jun 25, 2017 15:58
--- NOTE | 2017-06-25 12:10 | ECHRPT ---
Indication: CORONARY ATHEROSCLEROSIS CONCLUSIONS Normal left ventricular size. Wall thickness is normal. The left ventricular systolic function is normal with an estimated ejection fraction in the range of 55-60%. Trace mitral valve regurgitation. There is trace tricuspid valve regurgitation. BP: 178 / 84 HR: 78 Rhythm: Sinus MEASUREMENTS (Male / Female) Normal Values Technical Quality:Fair 2D ECHO LV Diastolic Diameter PLAX 2.8 cm 4.2 - 5.9 / 3.9 - 5.3 cm LV Systolic Diameter PLAX 2.3 cm IVS Diastolic Thickness 1.0 cm 0.6 - 1.0 / 0.6 - 0.9 cm LVPW Diastolic Thickness 1.0 cm 0.6 - 1.0 / 0.6 - 0.9 cm LV Relative Wall Thickness 0.7 LVOT Diameter 2.2 cm Aortic Root Diameter 2.9 cm LA Systolic Diameter LX 3.4 cm 3.0 - 4.0 / 2.7 - 3.8 cm M-MODE AV Cusp Separation MM 2.2 cm DOPPLER AV Peak Velocity 149.0 cm/s AV Peak Gradient 8.9 mmHg AV Mean Gradient 4.0 mmHg AV Velocity Time Integral 27.9 cm LVOT Peak Velocity 102.0 cm/s LVOT Peak Gradient 4.2 mmHg LVOT Velocity Time Integral 20.8 cm LVOT Cardiac Index 3063.3 cm/minm AV Area Cont Eq vti 2.8 cm AV Area Cont Eq pk 2.6 cm LV E' Lateral Velocity 3.9 cm/s LV E' Septal Velocity 5.0 cm/s TR Peak Velocity 261.0 cm/s TR Peak Gradient 27.2 mmHg PV Peak Velocity 75.9 cm/s PV Peak Gradient 2.3 mmHg FINDINGS LEFT VENTRICLE Normal left ventricular size. Wall thickness is normal. The left ventricular systolic function is normal with an estimated ejection fraction in the range of 55-60%. RIGHT VENTRICLE Normal right ventricular size and systolic function. LEFT ATRIUM The left atrial size is normal. RIGHT ATRIUM The right atrial size is normal. ATRIAL SEPTUM Normal atrial septal thickness without atrial level shunting by limited color doppler interrogation. AORTA The aortic root and proximal ascending aorta are normal in size on limited imaging. MITRAL VALVE Trace mitral valve regurgitation. AORTIC VALVE Trileaflet aortic valve. No aortic valve stenosis or regurgitation. TRICUSPID VALVE There is trace tricuspid valve regurgitation. PULMONARY VALVE The pulmonary valve is not well visualized. VESSELS The inferior vena cava is normal in size. PERICARDIUM No pericardial effusion. Ivan Caicedo MD, FACC (Electronically Signed) Final Date:25 June 2017 12:09
[2017-06-25] MEDS: hydrALAZINE HCL 50 MG TAB PO SCH ×2 (13:05→20:33)
--- NOTE | 2017-06-25 13:20 | HHI.CCPN ---
Subjective Brief History 76-year-old male fell off the roof was initially transferred to [facility] then transferred to us trauma transfer. Patient sustained significant injuries including Fracture of the anterior plate of C5 and C6 Unstable comminuted fracture of T12-L1 And 12th rib fracture on the left Patient's been placed in ICU appropriate c-collar is applied According to neurosurgery patient will undergo thoracolumbar fusion for this unstable fracture while the C-spine injury will heal on its 24 Hour Review/Hospital Course Patient has been stable since admission to ICU He remains neurologically intact Neurosurgery consult greatly appreciated Patient is scheduled to undergo thoracolumbar fusion by Dr. 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
[2017-06-25] MEDS: ENALAPRILAT 1.25 MG/ML VIAL IV PUSH PRN (13:47)
[2017-06-25] MEDS: ENOXAPARIN SODIUM 40 MG/0.4 ML SYRINGE SQ SCH (16:10)
[2017-06-25] MEDS: MORPHINE SULFATE 4 MG/ML INJ IV PUSH PRN (16:24)
[2017-06-25] MEDS: REMOVE OLD LIDOCAINE PATCH T-DERMAL SCH (21:13)
[2017-06-26] VITALS (7 sets, daily range): BP systolic 121–171; BP diastolic 72–99; PULSE 62–92; RESP 14–24; TEMP 98.4–98.7; O2SAT 95–97
[2017-06-26] MEDS: METHOCARBAMOL 500 MG TAB PO SCH ×3 (00:54→17:04)
[2017-06-26] MEDS: MORPHINE SULFATE 4 MG/ML INJ IV PUSH PRN ×3 (00:55→20:21)
[2017-06-26] MEDS: SODIUM CHLOR 0.9% 1000 ML INJ 1,000 ML IV SCH ×2 (04:10→17:05)
[2017-06-26 05:36] LABS: AUTOMATED NEUTROPHIL # 8.3 TH/MM3 (1.8-7.7); BASOPHIL % 0.3 % (0.0-2.0); EOSINOPHIL % 0.4 % (0.0-4.0); HEMO FLAGS DIFF FINAL; LYMPH % 15.2 % (9.0-44.0); LYMPHOCYTE # 1.7 TH/MM3 (1.0-4.8); MEAN CELL VOLUME 84.1 FL (80.0-100.0); MEAN CORPUSCULAR HEMOGLOBIN 28.2 PG (27.0-34.0); MEAN CORPUSCULAR HGB CONC 33.6 % (32.0-36.0); MONO % 8.7 % (0.0-8.0); NEUT % 75.4 % (16.0-70.0); PLATELET COUNT 116 TH/MM3 (150-450); RED BLOOD COUNT 4.64 MIL/MM3 (4.50-5.90); RED CELL DISTRIBUTION WIDTH 14.2 % (11.6-17.2); WHITE BLOOD COUNT 11.1 TH/MM3 (4.0-11.0)
[2017-06-26] MEDS: LACTULOSE SYRUP 20 GM/30 ML CUP PO PRN (05:46)
[2017-06-26 05:56] LABS: BICARBONATE 28.9 MEQ/L (21.0-32.0); POTASSIUM 3.6 MEQ/L (3.5-5.1)
[2017-06-26] MEDS: ENALAPRILAT 1.25 MG/ML VIAL IV PUSH PRN ×2 (06:15→14:15)
[2017-06-26] MEDS ORDERED: BISACODYL 10 MG SUPP RECTAL PRN (06:30)
[2017-06-26] MEDS: LIDOCAINE HCL 5% PATCH T-DERMAL SCH (08:39)
[2017-06-26] MEDS: hydrALAZINE HCL 50 MG TAB PO SCH ×2 (08:40→20:21)
[2017-06-26] MEDS: ATENOLOL 25 MG TAB PO SCH (08:40)
[2017-06-26] MEDS: DOCUSATE SODIUM 50 MG/SENNA 8.6 MG TAB PO SCH ×2 (08:40→20:22)
[2017-06-26] MEDS: PRAVASTATIN SOD 40 MG TAB PO SCH (08:40)
[2017-06-26] MEDS: SODIUM CHLORIDE 0.9% FLUSH 10 ML FLUSH IV FLUSH SCH ×2 (08:40→20:22)
[2017-06-26] MEDS: POLYETHYLENE GLYCOL 17 GM PKG PO SCH (08:40)
[2017-06-26] MEDS: BACITRACIN TOP OINT 15 GM TUBE TOP SCH ×2 (08:40→20:29)
[2017-06-26] MEDS: LACTULOSE SYRUP 20 GM/30 ML CUP PO SCH ×4 (08:40→20:46)
[2017-06-26] MEDS: FAMOTIDINE 20 MG TAB PO SCH ×2 (08:40→20:21)
--- NOTE | 2017-06-26 12:04 | HHI.NSPN ---
Note Status Status: Progress Note Interval History Diagnosis multiple trauma Interval History This 76-year-old male was working on a roof somewhere in [place] and was transferred to [facility] after he fell off the roof. He was worked up and found to have the above-noted injuries. I was asked to accept the patient in transfer which was readily done. 06/26. he remains very painful. No focal neurological deficits Labs, Micro, & Vital Signs Results Date Time Temp Pulse Resp B/P (MAP) Pulse Ox O2 Delivery O2 Flow Rate FiO2 06/26/17 11:44 97 06/26/17 08:00 77 06/26/17 08:00 98.6 82 14 162/78 (106) 97 06/26/17 07:00 Room Air 06/26/17 04:00 86 06/26/17 04:00 98.5 86 24 149/80 (103) 96 06/26/17 01:03 17 06/26/17 00:00 98.4 70 20 121/99 (106) 96 06/26/17 00:00 62 06/25/17 20:00 70 06/25/17 20:00 98.4 70 20 121/99 (106) 96 06/25/17 19:00 98 Room Air 06/25/17 16:00 98.0 84 30 111/58 (75) 95 06/25/17 16:00 75 06/25/17 12:00 73 06/25/17 12:00 98.0 72 15 197/91 (126) 93 Constitutional Vital Signs Date Time Temp Pulse Resp B/P (MAP) Pulse Ox O2 Delivery O2 Flow Rate FiO2 06/26/17 11:44 97 06/26/17 08:00 77 06/26/17 08:00 98.6 82 14 162/78 (106) 97 06/26/17 07:00 Room Air 06/26/17 04:00 86 06/26/17 04:00 98.5 86 24 149/80 (103) 96 06/26/17 01:03 17 06/26/17 00:00 98.4 70 20 121/99 (106) 96 06/26/17 00:00 62 06/25/17 20:00 70 06/25/17 20:00 98.4 70 20 121/99 (106) 96 06/25/17 19:00 98 Room Air 06/25/17 16:00 98.0 84 30 111/58 (75) 95 06/25/17 16:00 75 06/25/17 12:00 73 06/25/17 12:00 98.0 72 15 197/91 (126) 93 Physical Exam General: Pt resting in bed appearing Eyes: Pupils equal, sclera anicteric. Resp: CTA bilaterally Heart: NSR no murmurs Abd: Soft positive bs Skin: Minor abrasions and left periorbital ecchymosis around the left eye. He is alert, awake and oriented to time, place and person. Speech is fluent. Higher cognitive functions are normal. Cranial nerve examination demonstrates the pupils to be equal, round, and reactive to light. Extra-ocular movements are intact. Facial motor and sensory function are normal and symmetrical. Gross hearing is intact, bilaterally. The uvula is midline and elevates symmetrically with the soft palate. Sternocleidomastoid and trapezius muscles have normal and symmetrical strength. Other cranial nerves are intact. Neck is supported buy a [place] J collar Muscle testing reveals normal bulk and tone overall without rigidity, spasticity , fasciculations, or atrophy. Muscle strength is 5/5 in all muscle groups of both upper extremities including deltoid, biceps, triceps, brachioradialis, wrist extension and interior assemblies developer prover. In the lower extremities, strength is 5/5 in both iliopsoas, quadriceps, hamstrings, plantar flexion, dorsiflexion, and extensor hallicus longus. Sensory examination shows chronic hx of right 1-3 finger numbness, otherwise intact to light touch and sharp/dull discrimination in both the upper and lower extremities, symmetrically. Deep tendon reflexes are 2+ and symmetrical in the biceps, triceps, and brachioradialis, bilaterally, in the upper extremities. In the lower extremities , the patellar and Achilles are 2+, bilaterally. There is a bilateral plantar flexion response. Hoffmanns sign is negative. There is no clonus or other abnormal reflexes noted. Cerebellar examination is intact to [id number] test, rapid rhythmic alternating motion. There is no dysmetria, dysdiadochokinesia, truncal ataxia, or tremor. Medications Current Medications Current Medications Sodium Chloride 1,000 ml @ 80 mls/hr [id number] IV Last administered on 04:10; Start 06/24/17 at 01:00 Sodium Chloride (NS Flush) 2 ml UNSCH PRN IV FLUSH FLUSH AFTER USING IV ACCESS ; Start 06/24/17 at 00:30 Sodium Chloride (NS Flush) 2 ml BID IV FLUSH Last administered on 06/26/17 08 :40; Start 06/24/17 at 09:00 Ondansetron HCl (Zofran Inj) 4 mg Q6H PRN IV PUSH NAUSEA OR VOMITING; Start at 00:30 Famotidine (Pepcid) 20 mg BID PO Last administered on 06/26/17 08:40; Start 06/24/17 at 09:00 Miscellaneous Information (Post-op Orders (for Pharmacy)) STAT ONCE XX Last administered on 06/25/17 20:30; Start 06/24/17 at 00:30; Stop 06/24/17 at 00 :53; Status DC Oxycodone/ Acetaminophen (Percocet 5-325 Mg) 1 tab Q4H PRN PO PAIN SCALE 3 TO 5 Last administered on 06/25/17 08:06; Start 06/24/17 at 00:30 Morphine Sulfate (Morphine Inj) 4 mg Q3H PRN IV PUSH PAIN 6-10 Last administered on 06/26/17 00:55; Start 06/24/17 at 00:30 Naloxone HCl (Narcan Inj) 0.4 mg UNSCH PRN IV PUSH SEE LABEL COMMENTS; Start 06/24/17 at 00:30 Atenolol (Tenormin) 25 mg DAILY PO Last administered on 06/26/17 08:40; Start 06/24/17 at 09:00 Pravastatin Sodium (Pravachol) 40 mg DAILY PO Last administered on 06/26/17 08:40; Start 06/24/17 at 09:00 Acetaminophen 100 ml @ 400 mls/hr Q6H IV Last administered on 06/25/17 03:36 ; Start 06/24/17 at 08:00; Stop 06/25/17 at 07:59; Status DC Methocarbamol (Robaxin) 500 mg Q8H PO Last administered on 06/26/17 08:40; Start 06/24/17 at 09:00 Lidocaine HCl (Lidoderm 5% Patch.12 Hr) 1 patch DAILY T-DERMAL Last administered on 06/26/17 08:39; Start 06/24/17 at 09:00 Senna/Docusate Sodium (Deanna-Colace) 1 tab BID PO Last administered on 08:40; Start 06/24/17 at 09:00 Lactulose (Lactulose Liq) 30 ml DAILY PRN PO No BM in 2 days Last administered on 06/26/17 05:46; Start 06/24/17 at 07:30 Polyethylene Glycol (Miralax) 17 gm DAILY PO Last administered on 06/26/17 08 :40; Start 06/24/17 at 09:00 Miscellaneous Information 1 Q24H T-DERMAL Last administered on 06/25/17 21:13 ; Start 06/24/17 at 21:00 Bacitracin (Baciguent Oint) 1 applic Q12HR TOP Last administered on 06/26/17 08:40; Start 06/24/17 at 10:00 Sodium Chloride (Bibb Anupam Rumney) 1 spray QID PRN NASAL STUFFY NOSE Last administered on 06/24/17 17:16; Start 06/24/17 at 14:15 Enalaprilat (Vasotec Inj) 1.25 mg Q6H PRN IV PUSH SBP>160, DBP>90 Last administered on 06/26/17 06:15; Start 06/25/17 at 12:00 Hydralazine HCl (Apresoline) 50 mg BID PO Last administered on 06/26/17 08:40 ; Start 06/25/17 at 12:00 Enoxaparin Sodium (Lovenox Inj) 40 mg Q24H SQ Last administered on 06/25/17 16:10; Start 06/25/17 at 16:00 Bisacodyl (Dulcolax Supp) 10 mg Q24H PRN RECTAL CONSTIPATION/ IF NPO; Start at 06:30 Lactulose (Lactulose Liq) 30 ml QID PO Last administered on 06/26/17 08:40; Start 06/26/17 at 09:00; Stop 06/26/17 at 21:01 Sodium Biphosphate/ Sodium Phosphate (Fleets Enema (Adult)) 133 ml ONCE ONCE RECTAL ; Start 06/26/17 at 15:45; Stop 06/26/17 at 15:46 Plan Plan Remarks Vasquez VTE Risk Assessment: High Risk VTE Pharm Contraindication: Hemorrhage Caprini Risk Assessment Model Point Value = 1 Point Value = 2 Point Value = 3 Point Value = 5 Age 41-60 Minor surgery BMI > 25 kg/m2 Swollen legs Varicose veins or History of unexplained or recurrent spontaneous Oral contraceptives or hormone replacement Sepsis (< 1 month) Serious lung disease, including pneumonia (< 1 month) Abnormal pulmonary function Acute myocardial infarction Congestive heart failure (< 1 month) History of inflammatory bowel disease Medical patient at bed rest Age 61-74 Arthroscopic surgery Major open surgery (> 45 min) Laparoscopic surgery (> 45 min) Malignancy Confined to bed (> 72 hours) Immobilizing plaster cast Central venous access Age >= 75 History of VTE Family history of VTE Factor V Leiden Prothrombin [id number] Lupus anticoagulant Anticardiolipin antibodies Elevated serum homocysteine Heparin-induced thrombocytopenia Other congenital or acquired thrombophilia Stroke (< 1 month) Elective arthroplasty Hip, pelvis, or leg fracture Acute spinal cord injury (< 1 month) Prophylaxis Regimen Total Risk Factor Score Risk Level Prophylaxis Regimen 0-1 Low Early ambulation 2 Moderate Order ONE of the following: *Sequential Compression Device (SCD) *Heparin 5000 units SQ BID 3-4 Higher Order ONE of the following medications: *Heparin 5000 units SQ TID *Enoxaparin/Lovenox 40 mg SQ daily (WT < 150 kg, CrCl > 30 mL/min) *Enoxaparin/Lovenox 30 mg SQ daily (WT < 150 kg, CrCl > 10-29 mL/min) *Enoxaparin/Lovenox 30 mg SQ BID (WT < 150 kg, CrCl > 30 mL/min) AND/OR *Sequential Compression Device (SCD) 5 or more Highest Order ONE of the following medications: *Heparin 5000 units SQ TID (Preferred with Epidurals) *Enoxaparin/Lovenox 40 mg SQ daily (WT < 150 kg, CrCl > 30 mL/min) *Enoxaparin/Lovenox 30 mg SQ daily (WT < 150 kg, CrCl > 10-29 mL/min) *Enoxaparin/Lovenox 30 mg SQ BID (WT < 150 kg, CrCl > 30 mL/min) AND *Sequential Compression Device (SCD) Attending Statement A 76-year-old male with above-noted injuries. Neuro. Continue neuro checks in a serial fashion. Cervical fractures. \Maintain bracing with [place] J collar. Possible surgical fusion tomorrow by Dr Jarrett. The surgical procedure, its indications, alternatives, risks, and potential complications. Risks and potential complications include, but are not limited to, infection, blood loss, CSF leak, partial or complete loss of sight in one or both eyes, paresis, paralysis, permanent pain or difficulty swallowing, loss of bowel or bladder function, complications from anesthesia, blood clot, stroke, myocardial infarction, or even . Coronary artery disease and atrial fibrillation. Increases his surgical risk Hypertension. Monitor and treat with antihypertensives as needed Unstable thoracic fracture. He will need a surgical open reduction and internal fixation Pulmonary. Continue aggressive pulmonary toilette, nasotracheal suction, and breathing treatments with nebulizers. Nutrition. NPO Renal. Continue to monitor closely urine output, BUN and creatinine Diabetes mellitus. Continue to Monitor serial Acu checks and SSI as needed in detail ID Continue to monitor for signs of infection Hiatal hernia and GERD. Continue Protonix for stress ulcer prophylaxis Continue vanessa brianda and SCD's. Nonchemical FVT prophylaxis The exam, history, and the medical decision-making described in the above note were completed with the assistance of the mid-level provider. I reviewed and agree with the findings presented. I attest that I had a [id number] encounter with the patient on the same day, and personally performed and documented my assessment and findings in the medical record. Moo Arshad MD Jun 26, 2017 12:04
--- NOTE | 2017-06-26 12:51 | HHI.CCPN ---
Subjective Brief History 76-year-old male fell off the roof was initially transferred to [facility] then transferred to us trauma transfer. Patient sustained significant injuries including Fracture of the anterior plate of C5 and C6 Unstable comminuted fracture of T12-L1 And 12th rib fracture on the left Patient's been placed in ICU appropriate c-collar is applied According to neurosurgery patient will undergo thoracolumbar fusion for this unstable fracture while the C-spine injury will heal on its 24 Hour Review/Hospital Course Patient has been stable since admission to ICU He remains neurologically intact Neurosurgery consult greatly appreciated Patient is scheduled to undergo thoracolumbar fusion by Dr. Jarrett 06/25 neuro intact pain controlled NS plan noted has also epidural hematoma 06/26 intact pain controlled preop by NS for C spine precaution Objective Vital Signs Date Time Temp Pulse Resp B/P (MAP) Pulse Ox O2 Delivery O2 Flow Rate FiO2 06/26/17 12:00 70 06/26/17 12:00 98.7 14 171/80 (110) 95 06/26/17 07:00 Room Air 06/24/17 22:19 21 06/24/17 01:34 2.00 Intake and Output 06/26/17 06/26/17 06/27/17 08:00 16:00 00:00 Intake Total 1000 ml Output Total 600 ml Balance 400 ml Result Diagram: 06/26/17 0502 06/26/17 0502 Exam REEL SLITTER gcs 15 Hemodynamic/Cardiac stable Pulmonary/Respiratory clear b/l Abdomen/GI Nutrition soft Urinary Catheter Assessment Urinary Catheter: No Vascular Central Line Catheter Vascular Central Line Catheter: No Assessment and Plan Plan preop with NS DVT prophylaxis pain control diet Jewell Liriano MD Jun 26, 2017 12:51
--- NOTE | 2017-06-26 14:42 | PD.CONS ---
[facility] By [facility]. Jar[facility] Reason for Consult medical clearance fro spinal surgery Primary Care Physician Non-Staff Diagnoses: History of Present Illness patient is a very pleasant 76 years old male with known history of CAD S/P CABG in 2003 in [facility] by Chata Lujan and ff up with Dr. Adriano Davila her front desk associate was actually. patient is admitted S/P fall and sustained cervical neck injury. Ff by neurosurgery and critical care trauma service. [facility] consulted for clearance for spinal surgery Apparently was working on the roof and fell down about 6 ft from the ground and fell on his face and sustained spina neck fracture patient currently complains of mild neck discomfort no paresthesias, no headaches Pateitn is on ASA 81 mg daily, ARB, BB, statins and Centrum silver. Is not on any Plavix or coumadin He states that he just saw his front desk associate Dr. Davila last Friday and no changes were made on his regimen Review of Systems Constitutional: DENIES: Fever, Weight loss, Chills, Change in appetite Eyes: DENIES: Blurred vision, Double Vision Ears, nose, mouth, throat: DENIES: Tinnitus, Ear Pain, Epistaxis, Odynophagia Respiratory: DENIES: Cough, Hemoptysis, Sputum production, Shortness of breath Cardiovascular: DENIES: Chest pain, Palpitations, Dyspnea on Exertion, Lower Extremity Edema, Orthopnea Gastrointestinal: DENIES: Black stools, Bloody stools, Difficulty Swallowing, Anorexia Genitourinary: DENIES: Urgency, Hematuria, Penile Discharge Musculoskeletal: DENIES: Joint pain, Stiffness Integumentary: DENIES: Pruritus Hematologic/lymphatic: DENIES: Bruising Immunologic/allergic: DENIES: Urticaria Neurologic: DENIES: Headache, Speech Problems, Tremor Psychiatric: DENIES: Suicidal Ideation, Homicidal Ideation Past Family Social History Allergies: Coded Allergies: meloxicam (Unverified Allergy, Unknown, WEAKNESS, 03/18/17) Uncoded Allergies: MERTHIOLATE (Allergy, Severe, RASH, 03/25/16) Past Medical History CAD S/P CABG- 2003 Past Surgical History S/P CABG 2003 right hip surgery 2016 Reported Medications Atenolol 50 mg daily, Losartan 40 mg daily, Lovastatin 40 mg hs, ASA 81 mg daily , Centrum silver daily Active Ordered Medications see EMR Family History non contributory Social History non smoker very rare alcohol use Physical Exam Vital Signs Vital Signs Date Time Temp Pulse Resp B/P (MAP) Pulse Ox O2 Delivery O2 Flow Rate FiO2 06/26/17 12:00 70 06/26/17 12:00 98.7 70 14 171/80 (110) 95 06/26/17 11:44 97 06/26/17 08:00 77 06/26/17 08:00 98.6 82 14 162/78 (106) 97 06/26/17 07:00 Room Air 06/26/17 04:00 86 06/26/17 04:00 98.5 86 24 149/80 (103) 96 06/26/17 01:03 17 06/26/17 00:00 98.4 70 20 121/99 (106) 96 06/26/17 00:00 62 06/25/17 20:00 70 06/25/17 20:00 98.4 70 20 121/99 (106) 96 06/25/17 19:00 98 Room Air 06/25/17 16:00 98.0 84 30 111/58 (75) 95 06/25/17 16:00 75 Physical Exam GENERAL: This is a well-nourished, well-developed patient, in no apparent distress. SKIN: No rashes, ecchymoses or lesions. Cool and dry. HEAD: Atraumatic. Normocephalic. No temporal or scalp tenderness., some superficial abrasions, scratches on face/nose EYES: Pupils equal round and reactive. Extraocular motions intact. No scleral icterus. No injection or drainage. ENT: Nose without bleeding, purulent drainage or septal hematoma. Throat without erythema, tonsillar hypertrophy or exudate. Uvula midline. Airway patent. NECK: cervical collar in place CARDIOVASCULAR: Regular rate and rhythm without murmurs, gallops, or rubs. RESPIRATORY: Clear to auscultation. Breath sounds equal bilaterally. No wheezes , rales, or rhonchi. GASTROINTESTINAL: Abdomen soft, non-tender, nondistended. No hepato-splenomegaly , or palpable masses. No guarding. MUSCULOSKELETAL: Extremities without clubbing, cyanosis, or edema. No joint tenderness, effusion, or edema noted. No calf tenderness. Negative Homans sign bilaterally. NEUROLOGICAL: Awake and alert. Cranial nerves II through XII intact. . Five out of 5 muscle strength in all muscle groups. Normal speech. outside medical sales representative 5/5 per patient chronic mild numbness of the 3rd,4th finger- not really significant on exam gait testing deferred Laboratory Laboratory Tests Test 06/26/17 05:02 White Blood Count 11.1 Red Blood Count 4.64 Hemoglobin 13.1 Hematocrit 39.0 Mean Corpuscular Volume 84.1 Mean Corpuscular Hemoglobin 28.2 Mean Corpuscular Hemoglobin Concent 33.6 Red Cell Distribution Width 14.2 Platelet Count 116 Mean Platelet Volume 8.5 Neutrophils (%) (Auto) 75.4 Lymphocytes (%) (Auto) 15.2 Monocytes (%) (Auto) 8.7 Eosinophils (%) (Auto) 0.4 Basophils (%) (Auto) 0.3 Neutrophils # (Auto) 8.3 Lymphocytes # (Auto) 1.7 Monocytes # (Auto) 1.0 Eosinophils # (Auto) 0.0 Basophils # (Auto) 0.0 CBC Comment DIFF FINAL Differential Comment Blood Urea Nitrogen 12 Creatinine 0.66 Random Glucose 94 Calcium Level 8.3 Sodium Level 137 Potassium Level 3.6 Chloride Level 101 Carbon Dioxide Level 28.9 Anion Gap 7 Estimat Glomerular Filtration Rate 117 Result Diagram: 06/26/17 0502 06/26/17 0502 Imaging Last Impressions Thoracic Spine MRI 06/24/17 0000 Signed Impressions: Service Date/Time: Saturday, June 24, 2017 14:15 - CONCLUSION: Normal examination of the thoracic spine. Marked discogenic edema at the T12-L1 level. There may be some epidural collection at that level defer to the lumbar spine MRI for complete characterization. Ivan Patterson MD Lumbar Spine MRI 06/24/17 0000 Signed Impressions: Service Date/Time: Saturday, June 24, 2017 14:15 - CONCLUSION: 1. Discogenic edema on the T12-L1 level with vertebral body edema. The disc space height is still preserved. It is an unusual pattern for trauma. Discitis is within the differential. 2. Elongated epidural collection beginning at T12- L1 and extending at least 6.7 cm inferiorly likely epidural process such as either hematoma or infection, correlate clinically. Ivan Patterson MD Chest X-Ray 06/24/17 0000 Signed Impressions: Service Date/Time: Saturday, June 24, 2017 07:58 - CONCLUSION: 1. No acute cardiopulmonary disease. Osman Brumfield MD Cervical Spine MRI 06/24/17 0000 Signed Impressions: Service Date/Time: Saturday, June 24, 2017 14:15 - CONCLUSION: 1. Very impressive prevertebral soft tissue swelling and hematoma in the upper cervical spine. I do not see any definite fracture on the IR images in the upper cervical spine. 2. Impressive posterior soft tissue edema and some fullness of the epidural space posterior to the C5-6 level. I do not have access to a non-contrast CT scan if one has been performed or if there is a known fracture. Ivan Patterson MD Assessment and Plan Assessment and Plan 76 years old male S/P fall with cervical fracture -Neurosurgery ff History of CAD S/P CABG in 2003 - he actually just seen his front desk associate for ff up last week- and everything is stable his last stress test was in 2014- and unremarkable Echo done with EF 60%-- stable from OP office echo we will continue his cardiac meds- ARB, BB, and statins HOld ASA - for spinal surgery. He is not on any other OAC cardiac cabrera- he is stable to undergo procedure patient stable for spinal surgery we will continue to monitor BP continue on Lovenox for DVT prophylaxis Darrion Chester MD Jun 26, 2017 14:42
[2017-06-26] MEDS: ENOXAPARIN SODIUM 40 MG/0.4 ML SYRINGE SQ SCH (15:04)
[2017-06-26] MEDS ORDERED: SOD PHOSPHATE/SOD BIPHOSPHATE (ADULT) ENEMA 133ML RECTAL ONE (15:45)
[2017-06-26] MEDS: LOSARTAN 50 MG TAB PO SCH (17:04)
[2017-06-26] MEDS: REMOVE OLD LIDOCAINE PATCH T-DERMAL SCH (20:44)
[2017-06-27] VITALS (7 sets, daily range): BP systolic 122–184; BP diastolic 74–88; PULSE 64–83; RESP 10–21; TEMP 98.1–99.1; O2SAT 94–99
[2017-06-27] MEDS: METHOCARBAMOL 500 MG TAB PO SCH ×3 (00:29→17:28)
[2017-06-27] MEDS: MORPHINE SULFATE 4 MG/ML INJ IV PUSH PRN ×3 (00:29→08:19)
[2017-06-27] MEDS: SODIUM CHLOR 0.9% 1000 ML INJ 1,000 ML IV SCH ×2 (06:45→17:29)
[2017-06-27] MEDS ORDERED: VANCOMYCIN HCL 1000 MG VIAL ONE ×2 (07:04→13:29)
[2017-06-27] MEDS ORDERED: THROMBIN (TOPICAL) 5,000 UNIT VIAL ONE (07:04)
[2017-06-27] MEDS ORDERED: BUPIVACAINE/EPINEPHRINE 0.5% PF 30 ML VIAL ONE (07:05)
[2017-06-27] MEDS ORDERED: GELFOAM SIZE 100 ONE (07:05)
--- NOTE | 2017-06-27 07:55 | HHI.PR ---
Neuropsych Behavior Behavior: Intact: Behavior, Coping/Acceptance, Cooperative w/ Treatment, Motivation, Frustration Tolerance/Providence Cognitive Cognitive: Intact: Cognitive, Attention/Concentration, Confused/Orientation, Insight/Awareness, Judgement/Problem-Solving, Memory Psychosocial Psychosocial: Intact: Psychosocial, Family/Other Adjustment, Realistic Expectation, Unable to Asses: Self-Esteem/Confidence Progress Notes/Response to Tx Contents of Sessions: Adjustment Time with Patient: 15 minutes Premorbid psychological status Premorbid Cognitive, Emotional and Behavioral Status: Stable. The patient has high school education and a solid work history prior to this injury. The patient has no prior psychiatric difficulties, as described above. Substance abuse history is unremarkable. Behavioral Reactions of Patient and Family/Support System: Stable. The patient s family is experiencing ongoing issues of adjustment given the nature of the injury, and this aspect of recovery will require ongoing monitoring. Emotional/Behavioral Status of Patient and Family/Support System: Stable. Pertinent issues, if appropriate to this patients clinical care, are described in detail above. Maximizing acute care outcome It is recommended that the patient be monitored for potential neurocognitive issues as the medical condition evolves. This patients neuropathological challenges may limit his rehabilitation potential going forward, and these challenges will require specialized therapeutic skills to maximize outcome. Additionally, the patients family is experiencing ongoing issues of adjustment given the traumatic nature of the injury, and they may benefit from ongoing psychological assistance. At this point in the recovery process, the patient does have cognitive capacity as the patient is able to understand a situation and its likely consequences, and he is able to manipulate information rationally. Cognitive capacity will be assessed throughout the recovery process. Anticipated Problems Ongoing areas of concern will include potential neurocognitive issues, which would be expected to improve with time and treatment. Presently, the patient is following commands. Treatment Plan This clinician will continue to follow with you throughout the course of this patients acute care treatment, and I will be available to meet with the patient s family/support system to facilitate their understanding and the ongoing care of their family member. The goals of neuropsychological intervention shall be both educational and supportive to the family/support system as is deemed clinically appropriate. Impression 76 year old man s/p fall from roof with vertebral fractures at C5-6 and T12-L1. No indication of concussive type injury. Diagnosis: (1) Cervical spine fracture Status: Acute (2) Fracture of lumbar spine Status: Acute Progress Note Narrative Ongoing follow-up of patient seen during daily trauma rounds. This is day 3 post injury. The patient is neurobehaviorally stable, no issues with restlessness/agitation or mental status. He is to undergo back fusion. I will continue to follow. Problem Qualifiers (1) Cervical spine fracture: (2) Fracture of lumbar spine: Qualified Codes: S32.019A - Unspecified fracture of first lumbar vertebra, initial encounter for closed fracture Catracho Lemon PhD Jun 27, 2017 7:55 am
[2017-06-27] MEDS: DOCUSATE SODIUM 50 MG/SENNA 8.6 MG TAB PO SCH ×2 (08:16→21:25)
[2017-06-27] MEDS: hydrALAZINE HCL 50 MG TAB PO SCH ×2 (08:16→21:25)
[2017-06-27] MEDS: ATENOLOL 50 MG TAB PO SCH (08:17)
[2017-06-27] MEDS: LIDOCAINE HCL 5% PATCH T-DERMAL SCH (08:18)
[2017-06-27] MEDS: FAMOTIDINE 20 MG TAB PO SCH ×2 (08:18→21:25)
[2017-06-27] MEDS: LOSARTAN 50 MG TAB PO SCH (08:19)
[2017-06-27] MEDS: PRAVASTATIN SOD 40 MG TAB PO SCH (08:20)
[2017-06-27] MEDS: POLYETHYLENE GLYCOL 17 GM PKG PO SCH (08:21)
[2017-06-27] MEDS: SODIUM CHLORIDE 0.9% FLUSH 10 ML FLUSH IV FLUSH SCH ×2 (08:21→21:25)
[2017-06-27] MEDS: BACITRACIN TOP OINT 15 GM TUBE TOP SCH ×2 (08:21→21:27)
[2017-06-27 10:37] LABS: HEMATOCRIT 36.7 % (39.0-51.0); MEAN CELL VOLUME 83.4 FL (80.0-100.0); MEAN CORPUSCULAR HEMOGLOBIN 29.1 PG (27.0-34.0); MEAN CORPUSCULAR HGB CONC 34.8 % (32.0-36.0); PLATELET COUNT 130 TH/MM3 (150-450); RED BLOOD COUNT 4.41 MIL/MM3 (4.50-5.90); REVIEW FLAG FINAL; WHITE BLOOD COUNT 10.3 TH/MM3 (4.0-11.0)
--- NOTE | 2017-06-27 10:52 | HHI.NSPN ---
(Jona Newman) History Chief Complaint: low back discomfort. (Jona Newman) Interval History This is a 76 y/o M who was up on his roof which he states is 8 feet when he thinks he slipped or lost his balance. He states when he fell to the ground he never lost consciousness. He crawled into the house and asked for help. He had neck pain when he was taken to the ER in [facility] and states this is now controlled. He denies any radiculopathy into the UEs at any time. He states he has numbness in the right 1-3rd fingers in the right hand which is chronic. He denies any numbness in the left hand or upper extremities otherwise. He denies any numbness or tingling in his torso or LEs. He currently denies any thoracic or low back pain or any radicular pain into the chest or LEs. He denies any weakness after his fall although currently he is aware of his fractures and is laying flat in bed and not moving. He relates that with the pain medications his neck and low back pain is better but he does experience pain in his neck and mid back area. He has a chronic history of low back pain and usually every 6 months he has exacerbations lasting a month or so. He also complains of chronic numbness in the right median nerve distribution in the upper extremity. He relates a history of coronary artery disease with revascularization the past and is actually followed by a motor checker with a stress test 1 1/2 years an echocardiogram 6 months ago. 06/25/17: Pt complains of low back pain. Neck pain and thoracic spine pain controlled with pain medication. No radiculopathy in UEs or LEs. No paresthesias in UEs or LEs, other than chronic right 1-3rd fingers. 06/26/17. he remains very painful. No focal neurological deficits 06/27/17: Pt awake and alert. States pain controlled. No radiculopathy in UEs or LEs. Paresthesias in right 1-3 fingers chronic. Pt remains on bedrest with [place] cervical collar in place. (Jona Newman) Review of Systems General: Negative for: fever, chills, insomnia Respiratory: Negative for: shortness of breath, cough, sputum Cardiovascular: Negative for: chest pain Gastrointestinal: Negative for: nausea, vomitting, diarrhea, constipation ( Jona Newman) Exam Results Vital Signs Date Time Temp Pulse Resp B/P (MAP) Pulse Ox O2 Delivery O2 Flow Rate FiO2 06/27/17 09:29 19 06/27/17 08:00 99.1 76 184/88 (120) 95 06/27/17 07:00 Room Air 06/24/17 22:19 21 06/24/17 01:34 2.00 Intake and Output 06/27/17 06/27/17 06/28/17 08:00 16:00 00:00 Intake Total 969 ml Output Total 650 ml Balance 319 ml (Jona Newman) Physical Examination General: Pt resting in bed in NAD. Vitals are stable. Eyes: Pupils equal, sclera anicteric. Resp: CTA bilaterally Heart: NSR no murmurs Abd: Soft positive bs Skin: Minor abrasions and left periorbital ecchymosis around the left eye. SCDs in place. Muscle: Pt remains on bedrest with HOB flat. [place] cervical collar in place. Moves all 4 extremities with good strength 5/5. Neuro: Pt awake and alert. Follows simple commands. Speech clear and appropriate. Sensation intact in extremities except for chronic 1-3 finger numbness. (Jona Newman) Lab, Micro, Other Results Last Impressions Thoracic Spine MRI 06/24/17 0000 Signed Impressions: Service Date/Time: Saturday, June 24, 2017 14:15 - CONCLUSION: Normal examination of the thoracic spine. Marked discogenic edema at the T12-L1 level. There may be some epidural collection at that level defer to the lumbar spine MRI for complete characterization. Ivan Patterson MD Lumbar Spine MRI 06/24/17 0000 Signed Impressions: Service Date/Time: Saturday, June 24, 2017 14:15 - CONCLUSION: 1. Discogenic edema on the T12-L1 level with vertebral body edema. The disc space height is still preserved. It is an unusual pattern for trauma. Discitis is within the differential. 2. Elongated epidural collection beginning at T12- L1 and extending at least 6.7 cm inferiorly likely epidural process such as either hematoma or infection, correlate clinically. Ivan Patterson MD Chest X-Ray 06/24/17 0000 Signed Impressions: Service Date/Time: Saturday, June 24, 2017 07:58 - CONCLUSION: 1. No acute cardiopulmonary disease. Osman Brumfield MD Cervical Spine MRI 06/24/17 0000 Signed Impressions: Service Date/Time: Saturday, June 24, 2017 14:15 - CONCLUSION: 1. Very impressive prevertebral soft tissue swelling and hematoma in the upper cervical spine. I do not see any definite fracture on the IR images in the upper cervical spine. 2. Impressive posterior soft tissue edema and some fullness of the epidural space posterior to the C5-6 level. I do not have access to a non-contrast CT scan if one has been performed or if there is a known fracture. Ivan Patterson MD Laboratory Tests Test 06/27/17 10:20 White Blood Count 10.3 TH/MM3 Red Blood Count 4.41 MIL/MM3 Hemoglobin 12.8 GM/DL Hematocrit 36.7 % Mean Corpuscular Volume 83.4 FL Mean Corpuscular Hemoglobin 29.1 PG Mean Corpuscular Hemoglobin Concent 34.8 % Red Cell Distribution Width 14.0 % Platelet Count 130 TH/MM3 Mean Platelet Volume 7.9 FL (Jona Newman) Medical Decision Making Impression and Plan A: 76 y/o M s/p fall from roof pt estimates 8-10 feet without LOC. C5-6 vertebral body fractures involving the anterior column with preserved facet consistent with an ankylosing spondylitis break. There is also a nondisplaced C7 vertebral body anterior fracture. 2. T12/L1 chance type fracture involving all 3 columns through the inferior aspect of T12 and superior aspect of the L1 vertebral body and facet consistent with an ankylosing spondylitis break. 3. Nasal bone fracture. 4. Rib fractures. P: Pt will maintain cervical collar at all times. He is on bedrest with log roll precautions with HOB flat. Continue with GI prophylaxis with Protonix Continue with SCDs. OR for cervical stabilization today. (Jona Newman) Attending Statement The exam, history, and the medical decision-making described in the above note were completed with the assistance of the mid-level provider. I reviewed and agree with the findings presented. I attest that I had a [id number] encounter with the patient on the same day, and personally performed and documented my assessment and findings in the medical record. Plan on the anterior cervical spine decompression and stabilization and subsequently severe thoracolumbar fixation/fusion for unstable fractures. Informed consent obtained. (Mckinley Jarrett MD) Jona Newman Jun 27, 2017 10:52 Mckinley Jarrett MD Jun 27, 2017 12:15
[2017-06-27] MEDS ORDERED: DEXAMETHASONE SOD PHOS 4 MG/ML VIAL IV ONE (12:00)
[2017-06-27] MEDS ORDERED: LACTATED RINGER'S 1000 ML INJ 1,000 ML IV ONE (12:00)
[2017-06-27] MEDS ORDERED: ROCURONIUM INJ 50 MG/5 ML SYRINGE IV PUSH ONE (12:00)
[2017-06-27] MEDS ORDERED: MIDAZOLAM HCL 2 MG/2 ML VIAL IV ONE (12:00)
[2017-06-27] MEDS ORDERED: PHENYLEPH/NS 1000 MCG/10 ML SYR IV ONE (12:00)
[2017-06-27] MEDS ORDERED: NEOSTIGMINE 3 MG/3 ML SYR IV ONE (12:00)
[2017-06-27] MEDS ORDERED: PROPOFOL 200 MG/20 ML AMP IV ONE (12:00)
[2017-06-27] MEDS ORDERED: GLYCOPYRROLATE 1 MG/5 ML SYRINGE IV PUSH ONE (12:00)
[2017-06-27] MEDS ORDERED: LIDOCAINE HCL 1% PF 5 ML SYRINGE OTHER ONE (12:00)
[2017-06-27] MEDS ORDERED: ONDANSETRON HCL 4 MG/2 ML VIAL IV ONE (12:00)
[2017-06-27] MEDS ORDERED: SODIUM CHLORID 0.9% 500 ML INJ 500 ML IV ONE (12:00)
[2017-06-27] MEDS ORDERED: NORMOSOL R INJ 1,000 ML IV ONE (12:00)
[2017-06-27] MEDS ORDERED: ePHEDrine/NS 25 MG/5 ML SYR IV ONE (12:00)
[2017-06-27] MEDS ORDERED: HYDROmorphone HCL PF 2 MG/ML VIAL ONE (12:16)
[2017-06-27] MEDS ORDERED: ACETAMINOPHEN 1000 MG/100 ML 0 ML IV ONE (12:16)
--- NOTE | 2017-06-27 13:24 | HHI.PR ---
Subjective Remarks patient in OR- for C spine surgery seen 3:50 pm at PACU awake and alert ff commands able to moves toes and hands intact sensation Objective Vitals Vital Signs Date Time Temp Pulse Resp B/P (MAP) Pulse Ox O2 Delivery O2 Flow Rate FiO2 06/27/17 11:40 97.4 70 19 177/84 (115) 95 06/27/17 09:29 19 06/27/17 08:00 99.1 76 12 184/88 (120) 95 06/27/17 08:00 76 06/27/17 07:00 96 Room Air 06/27/17 04:00 76 06/27/17 04:00 98.8 76 14 122/82 (95) 95 06/27/17 00:00 83 06/27/17 00:00 98.7 83 15 171/81 (111) 94 06/26/17 20:00 92 06/26/17 20:00 98.6 86 19 152/72 (98) 95 06/26/17 19:00 Room Air 06/26/17 16:00 98.7 72 14 154/77 (102) 97 06/26/17 16:00 72 I/O 06/26/17 06/26/17 06/26/17 06/27/17 06/27/17 06/27/17 07:00 15:00 23:00 07:00 15:00 23:00 Intake Total 1000 ml 1500 ml 969 ml Output Total 600 ml 1600 ml 650 ml 650 ml Balance 400 ml -100 ml 319 ml -650 ml Intake Oral 500 ml IV Total 1000 ml 1000 ml 969 ml Output Urine Total 600 ml 1600 ml 650 ml 650 ml # Bowel Movements 0 3 0 Result Diagram: 06/27/17 1020 06/26/17 0502 Imaging Last Impressions Thoracic Spine MRI 06/24/17 0000 Signed Impressions: Service Date/Time: Saturday, June 24, 2017 14:15 - CONCLUSION: Normal examination of the thoracic spine. Marked discogenic edema at the T12-L1 level. There may be some epidural collection at that level defer to the lumbar spine MRI for complete characterization. Ivan Patterson MD Lumbar Spine MRI 06/24/17 0000 Signed Impressions: Service Date/Time: Saturday, June 24, 2017 14:15 - CONCLUSION: 1. Discogenic edema on the T12-L1 level with vertebral body edema. The disc space height is still preserved. It is an unusual pattern for trauma. Discitis is within the differential. 2. Elongated epidural collection beginning at T12- L1 and extending at least 6.7 cm inferiorly likely epidural process such as either hematoma or infection, correlate clinically. Ivan Patterson MD Chest X-Ray 06/24/17 0000 Signed Impressions: Service Date/Time: Saturday, June 24, 2017 07:58 - CONCLUSION: 1. No acute cardiopulmonary disease. Osman Brumfield MD Cervical Spine MRI 06/24/17 0000 Signed Impressions: Service Date/Time: Saturday, June 24, 2017 14:15 - CONCLUSION: 1. Very impressive prevertebral soft tissue swelling and hematoma in the upper cervical spine. I do not see any definite fracture on the IR images in the upper cervical spine. 2. Impressive posterior soft tissue edema and some fullness of the epidural space posterior to the C5-6 level. I do not have access to a non-contrast CT scan if one has been performed or if there is a known fracture. Ivan Patterson MD Objective Remarks awake and alert C collar in place no rales regular rhythm abdomen sosft + coon in place extremities no edema able to move both hands/fingers and toes sensation grossly intact Procedures 06/27- Anterior cervical C5-6 interbody fusion; partial C5 and partial C6 corpectomy; anterior C5-6 cervical plate placement; C5-6 interbody cage placement; microsurgical technique Urinary Catheter: Yes Assessment to: Continue Coon insert reason: Surgical/Invasive Proced Date of Insertion: Jun 26, 2017 A/P Assessment and Plan 76 years old male S/P Anterior cervical C5-6 interbody fusion; partial C5 and partial C6 corpectomy; anterior C5-6 cervical plate placement; C5-6 interbody cage placement; microsurgical technique T12-L1 fracture Neuro surgery ff short course IV steroids History of CAD S/P CABG in 2003 - he actually just seen his risk compliance manager for ff up last week- and everything is stable his last stress test was in 2014- and unremarkable Echo done with EF 60%-- stable from OP office echo we will continue his cardiac meds- ARB, BB, and statins HOld ASA - for spinal surgery. He is not on any other OAC cardiac cabrera- he is stable to undergo procedure we will continue to monitor BP DVT prophylaxis TEDs/SCD Darrion Chester MD Jun 27, 2017 13:24
[2017-06-27] MEDS ORDERED: DEXAMETHASONE SOD PHOS 4 MG/ML VIAL ONE (13:29)
[2017-06-27] MEDS ORDERED: PROPOFOL 500 MG/50 ML INJ 50 ML ONE (13:59)
[2017-06-27] MEDS: DEXAMETHASONE SOD PHOS 4 MG/ML VIAL IV PUSH SCH ×2 (15:30→21:31)
[2017-06-27] MEDS ORDERED: ACETAMINOPHEN 325 MG TAB PO PRN (15:30)
[2017-06-27] MEDS ORDERED: ALUMINUM/MAGNESIUM/SIMETH 30 ML CUP PO PRN (15:30)
[2017-06-27] MEDS ORDERED: POTASSIUM CHLOR 20 MEQ PREMIX 100 ML IV PRN (15:30)
[2017-06-27] MEDS ORDERED: CALCIUM GLUCONATE INJ 1 GM in SODIUM CHLORIDE 0.9% INJ 100 ML IV PRN (15:30)
[2017-06-27] MEDS ORDERED: PROMETHAZINE INJ 25 MG/ML VIAL IM PRN (15:30)
[2017-06-27] MEDS ORDERED: MENTHOL LOZENGE BUCCAL PRN (15:30)
[2017-06-27] MEDS ORDERED: cloNIDine HCL 0.1 MG TAB PO PRN (15:30)
[2017-06-27] MEDS ORDERED: LABETALOL HCL 100 MG/20 ML VIAL IV PUSH PRN (15:30)
[2017-06-27] MEDS ORDERED: MAGNESIUM SULFATE INJ 2 GM in SODIUM CHLORIDE 0.9% INJ 100 ML IV PRN (15:30)
[2017-06-27] MEDS ORDERED: ZOLPIDEM TARTRATE 5 MG TAB PO PRN (15:30)
[2017-06-27] MEDS ORDERED: MAGNESIUM HYDROXIDE SUSP 30 ML CUP PO PRN (15:30)
--- NOTE | 2017-06-27 15:34 | PD.OP ---
Operative Report Date of Surgery: Jun 27, 2017 Preoperative Diagnosis: Cervical C5-6 with interbody/ankylosing spondylitis fracture with associated instability and stenosis from disc osteophyte complex Postoperative Diagnosis: Same Procedure: Anterior cervical C5-6 interbody fusion; partial C5 and partial C6 corpectomy; anterior C5-6 cervical plate placement; C5-6 interbody cage placement; microsurgical technique Anesthesia: Gen. endotracheal by Florencio gallegos Surgeon: Mckinley Jarrett M.D. Ethanol Operator(s): Stalin Raygoza Operation and Findings: Following administration of general endotracheal anesthesia, with the neck maintained in neutral position in a [place] J collar the patient received a gram of vancomycin and Decadron 10 mg intravenously. Sequential compression devices were placed in supine position on a Johnnie table and all pressure points adequately padded. The head secured in a donut and anterior cervical region then shaved and prepped with Chloraprep and sterilely draped with Ioban along with the usual sterile draping. A transverse skin incision on the left side of the neck was then made after infiltrating the skin with 0.5% Marcaine with epinephrine solution extending down through the platysma. At the anterior border of the sternocleidomastoid further dissection was undertaken developing a plane between the carotid sheath laterally and the trachea esophagus medially. The prevertebral fascia was was torn along with a fracture involving the inferior portion of the C5 vertebral body and the hyperostotic ankylosing spondylitis osteophytes. The medial attachments of the longus colli muscles were detached and a self-retaining retractor used for exposure. The C5-6 disc space was localized with a marking the disc space and using lateral fluoroscopy. There was significant disc degeneration with disc height collapse and anterior osteophytes noted at the C5-6 level and the osteophytes were resected with a Leksell and annulus incised with a 15 blade and further dissection undertaken using microtechnique with microscope magnification. Diskectomy was undertaken with pituitaries and the endplates were also decorticated with curettes and drill bit. And more posteriorly there was disk osteophyte complex compressing the thecal sac along with a significant uncovertebral joint hypertrophy with foraminal stenosis which was decompressed along with removal of the posterior longitudinal ligaments which were also partially torn. In order to decompress the spinal canal partial corpectomies were undertaken removing the inferior portion of the C5 body and superior portion of the C6 body. The foramen was decompressed bilaterally using a Kerrison's and palpation with a nerve hook, the exiting nerve roots were felt to be free. The area was then copiously irrigated. I then placed a Peek cage packed with local autograft bone at the C5-6 interspace under fluoroscopy guidance. In order to facilitate the fusion and provide stabilization, a Precision spine cervical plate was then placed with two 14 mm fixed angle screws in the C5 body and two 14 mm fixed angle screws in the C6 body. The plate screw locking mechanism was then engaged. AP and lateral fluoroscopy confirmed good placement of the construct and the retractor was then removed. Muscular bleeding points were cauterized with bipolar cautery and Gelfoam was then also used for hemostasis which was removed. The platysma was then approximated using 3-0 Vicryl interrupted stitches and 3-0 Vicryl subcuticular stitch also placed in an interrupted fashion, and final skin closure was with Mastisol and Steri-Strips. Sterile dressing was then applied. The neck immobilized in a [place] J collar. The patient was then extubated and taken to the recovery room. There are no intraoperative complications and all sponge and needle counts were correct at the end of procedure. Estimated blood loss was about 30 cc. The patient did undergo intraoperative neurologic monitoring which remained stable throughout the surgery. Mckinley Jarrett MD Jun 27, 2017 15:34
[2017-06-27] MEDS ORDERED: DO NOT ADM ANY ANTICOAGULANT DRUGS PRN (15:37)
[2017-06-27] MEDS ORDERED: *morphine SULFATE 8 MG/ML PERIprocedure ONLY ONE (15:55)
--- NOTE | 2017-06-27 19:21 | RADRPT ---
EXAM DATE/TIME: 06/27/2017 13:31 [facility] COMPARISON: No previous studies available for comparison. INDICATIONS : Fusion C5,C6 with screw and plate placement. MEDICAL HISTORY : Hypertension. SURGICAL HISTORY : CABG Right hip replacement. ENCOUNTER: Subsequent ACUITY: 4 - 6 days PAIN SCORE: Non-responsive. LOCATION: Cervical spine. FINDINGS: 4 images are recorded digitally in the operating room during placement of anterior plate and screw of the lower cervical spine. CONCLUSION: Intraoperative images. Russel Hong MD on June 27, 2017 at 19:19 Board Certified Radiologist. This report was verified electronically.
[2017-06-27] MEDS: ACETAMINOPHEN/HYDROcodone 325 MG/10 MG TAB PO PRN (20:24)
[2017-06-27] MEDS: REMOVE OLD LIDOCAINE PATCH T-DERMAL SCH (21:00)
[2017-06-27] MEDS: ENALAPRILAT 1.25 MG/ML VIAL IV PUSH PRN (21:47)
[2017-06-28] VITALS (13 sets, daily range): BP systolic 133–178; BP diastolic 63–84; PULSE 62–96; RESP 10–21; TEMP 97.8–98.7; O2SAT 96–98
[2017-06-28] MEDS: METHOCARBAMOL 500 MG TAB PO SCH ×3 (01:27→17:03)
[2017-06-28 02:16] LABS: HEMATOCRIT 34.7 % (39.0-51.0); MEAN CELL VOLUME 82.7 FL (80.0-100.0); MEAN CORPUSCULAR HEMOGLOBIN 28.5 PG (27.0-34.0); MEAN CORPUSCULAR HGB CONC 34.4 % (32.0-36.0); PLATELET COUNT 143 TH/MM3 (150-450); RED BLOOD COUNT 4.19 MIL/MM3 (4.50-5.90); REVIEW FLAG FINAL; WHITE BLOOD COUNT 11.3 TH/MM3 (4.0-11.0)
[2017-06-28 02:30] LABS: BICARBONATE 27.8 MEQ/L (21.0-32.0); POTASSIUM 3.9 MEQ/L (3.5-5.1)
[2017-06-28] MEDS: MORPHINE SULFATE 4 MG/ML INJ IV PUSH PRN ×2 (05:37→12:31)
[2017-06-28] MEDS: BACITRACIN TOP OINT 15 GM TUBE TOP SCH ×2 (09:00→21:00)
[2017-06-28] MEDS: SODIUM CHLORIDE 0.9% FLUSH 10 ML FLUSH IV FLUSH SCH ×2 (09:17→21:00)
[2017-06-28] MEDS: SODIUM CHLOR 0.9% 1000 ML INJ 1,000 ML IV SCH ×2 (09:17→17:03)
[2017-06-28] MEDS: LIDOCAINE HCL 5% PATCH T-DERMAL SCH (09:18)
[2017-06-28] MEDS: hydrALAZINE HCL 50 MG TAB PO SCH ×3 (09:20→21:59)
[2017-06-28] MEDS: DEXAMETHASONE SOD PHOS 4 MG/ML VIAL IV PUSH SCH (09:20)
[2017-06-28] MEDS: LOSARTAN 50 MG TAB PO SCH (09:20)
[2017-06-28] MEDS: POLYETHYLENE GLYCOL 17 GM PKG PO SCH (09:20)
[2017-06-28] MEDS: DOCUSATE SODIUM 50 MG/SENNA 8.6 MG TAB PO SCH ×3 (09:21→21:59)
[2017-06-28] MEDS: PRAVASTATIN SOD 40 MG TAB PO SCH (09:21)
[2017-06-28] MEDS: FAMOTIDINE 20 MG TAB PO SCH ×3 (09:21→21:59)
[2017-06-28] MEDS: ACETAMINOPHEN/HYDROcodone 325 MG/10 MG TAB PO PRN ×2 (09:21→22:00)
[2017-06-28] MEDS: ATENOLOL 50 MG TAB PO SCH (09:21)
[2017-06-28] MEDS ORDERED: PSEUDOEPHEDRINE HCL SYRUP 30 MG/5 ML CUP PO PRN (10:15)
--- NOTE | 2017-06-28 10:29 | HHI.NSPN ---
(Jona Newman) History Chief Complaint: low back discomfort. (Jona Newman) Interval History This is a 76 y/o M who was up on his roof which he states is 8 feet when he thinks he slipped or lost his balance. He states when he fell to the ground he never lost consciousness. He crawled into the house and asked for help. He had neck pain when he was taken to the ER in [facility] and states this is now controlled. He denies any radiculopathy into the UEs at any time. He states he has numbness in the right 1-3rd fingers in the right hand which is chronic. He denies any numbness in the left hand or upper extremities otherwise. He denies any numbness or tingling in his torso or LEs. He currently denies any thoracic or low back pain or any radicular pain into the chest or LEs. He denies any weakness after his fall although currently he is aware of his fractures and is laying flat in bed and not moving. He relates that with the pain medications his neck and low back pain is better but he does experience pain in his neck and mid back area. He has a chronic history of low back pain and usually every 6 months he has exacerbations lasting a month or so. He also complains of chronic numbness in the right median nerve distribution in the upper extremity. He relates a history of coronary artery disease with revascularization the past and is actually followed by a senior sas developer with a stress test 1 1/2 years an echocardiogram 6 months ago. 06/25/17: Pt complains of low back pain. Neck pain and thoracic spine pain controlled with pain medication. No radiculopathy in UEs or LEs. No paresthesias in UEs or LEs, other than chronic right 1-3rd fingers. 06/26/17. he remains very painful. No focal neurological deficits 06/27/17: Pt awake and alert. States pain controlled. No radiculopathy in UEs or LEs. Paresthesias in right 1-3 fingers chronic. Pt remains on bedrest with [place] cervical collar in place. 06/28/17: Pt awake. Mild incisional discomfort. No radiculopathy in UEs. Numbness in 1-3 fingers on right a little more prominent. No radiculopathy in chest or LEs. Back pain controlled with medication. (Jona Newman) Review of Systems General: Negative for: fever, chills, insomnia Respiratory: Negative for: shortness of breath, cough, sputum Cardiovascular: Negative for: chest pain Gastrointestinal: Negative for: nausea, vomitting, diarrhea, constipation ( Jona Newman) Exam Results Vital Signs Date Time Temp Pulse Resp B/P (MAP) Pulse Ox O2 Delivery O2 Flow Rate FiO2 06/28/17 06:00 64 06/28/17 04:00 98.7 11 133/63 (86) 98 06/27/17 19:00 Nasal Cannula 2.00 21 Intake and Output 06/28/17 06/28/17 06/29/17 08:00 16:00 00:00 Intake Total 1036 ml 163 ml Output Total 1050 ml Balance -14 ml 163 ml (Jona Newman) Physical Examination General: Pt resting in bed in NAD. Vitals are stable. Eyes: Pupils equal, sclera anicteric. Resp: CTA bilaterally Heart: NSR no murmurs Abd: Soft positive bs Skin: Minor abrasions and left periorbital ecchymosis around the left eye. SCDs in place. Anterior cervical incision clean and dry. New bandage placed. No signs of infection or complication. Muscle: Pt remains on bedrest with HOB flat. [place] cervical collar in place. Moves all 4 extremities with good strength 5/5. Neuro: Pt awake and alert. Follows simple commands. Speech clear and appropriate. Sensation intact in extremities except for chronic 1-3 finger numbness. (Jona Newman) Lab, Micro, Other Results Last Impressions Cervical Spine X-Ray 06/27/17 0000 Signed Impressions: Service Date/Time: Tuesday, June 27, 2017 13:31 - CONCLUSION: Intraoperative images. Russel Hong MD Thoracic Spine MRI 06/24/17 0000 Signed Impressions: Service Date/Time: Saturday, June 24, 2017 14:15 - CONCLUSION: Normal examination of the thoracic spine. Marked discogenic edema at the T12-L1 level. There may be some epidural collection at that level defer to the lumbar spine MRI for complete characterization. Ivan Patterson MD Lumbar Spine MRI 06/24/17 0000 Signed Impressions: Service Date/Time: Saturday, June 24, 2017 14:15 - CONCLUSION: 1. Discogenic edema on the T12-L1 level with vertebral body edema. The disc space height is still preserved. It is an unusual pattern for trauma. Discitis is within the differential. 2. Elongated epidural collection beginning at T12- L1 and extending at least 6.7 cm inferiorly likely epidural process such as either hematoma or infection, correlate clinically. Ivan Patterson MD Chest X-Ray 06/24/17 0000 Signed Impressions: Service Date/Time: Saturday, June 24, 2017 07:58 - CONCLUSION: 1. No acute cardiopulmonary disease. Osman Brumfield MD Cervical Spine MRI 06/24/17 0000 Signed Impressions: Service Date/Time: Saturday, June 24, 2017 14:15 - CONCLUSION: 1. Very impressive prevertebral soft tissue swelling and hematoma in the upper cervical spine. I do not see any definite fracture on the IR images in the upper cervical spine. 2. Impressive posterior soft tissue edema and some fullness of the epidural space posterior to the C5-6 level. I do not have access to a non-contrast CT scan if one has been performed or if there is a known fracture. Ivan Patterson MD Laboratory Tests Test 06/28/17 01:44 White Blood Count 11.3 TH/MM3 Red Blood Count 4.19 MIL/MM3 Hemoglobin 11.9 GM/DL Hematocrit 34.7 % Mean Corpuscular Volume 82.7 FL Mean Corpuscular Hemoglobin 28.5 PG Mean Corpuscular Hemoglobin Concent 34.4 % Red Cell Distribution Width 14.0 % Platelet Count 143 TH/MM3 Mean Platelet Volume 8.3 FL Blood Urea Nitrogen 15 MG/DL Creatinine 0.61 MG/DL Random Glucose 130 MG/DL Calcium Level 7.7 MG/DL Sodium Level 136 MEQ/L Potassium Level 3.9 MEQ/L Chloride Level 100 MEQ/L Carbon Dioxide Level 27.8 MEQ/L Anion Gap 8 MEQ/L Estimat Glomerular Filtration Rate 129 ML/MIN 06/28/17 06/28/17 06/29/17 15:00 23:00 07:00 Intake Total 163 ml Balance 163 ml IV Total 163 ml (Jona Newman) Medical Decision Making Impression and Plan A: 76 y/o M s/p fall from roof pt estimates 8-10 feet without LOC. C5-6 vertebral body fractures involving the anterior column with preserved facet consistent with an ankylosing spondylitis break. There is also a nondisplaced C7 vertebral body anterior fracture. 2. T12/L1 chance type fracture involving all 3 columns through the inferior aspect of T12 and superior aspect of the L1 vertebral body and facet consistent with an ankylosing spondylitis break. 3. Nasal bone fracture. 4. Rib fractures. P: Pt will maintain cervical collar at all times. He is on bedrest with log roll precautions with HOB flat. Continue with GI prophylaxis with Protonix Continue with SCDs. Thoracolumbar stabilization planning. (Jona Newman) Attending Statement The exam, history, and the medical decision-making described in the above note were completed with the assistance of the mid-level provider. I reviewed and agree with the findings presented. I attest that I had a [id number] encounter with the patient on the same day, and personally performed and documented my assessment and findings in the medical record. Stable neurologically. Awake and moves all 4 extremities. Cervical collar in place. Resume Lovenox for DVT prophylaxis along with sequential compression device. Plan on thoracolumbar posterior stabilization on Friday if stable over the weekend. Patient is in agreement. (Mckinley Jarrett MD) Jona Newman Jun 28, 2017 10:29 Mckinley Jarrett MD Jun 28, 2017 12:23
--- NOTE | 2017-06-28 11:31 | HHI.PR ---
Subjective Remarks minimal pain states hasn't eaten much-- having difficulty I assume with the collar Objective Vitals Vital Signs Date Time Temp Pulse Resp B/P (MAP) Pulse Ox O2 Delivery O2 Flow Rate FiO2 06/28/17 06:00 64 06/28/17 04:00 62 06/28/17 04:00 98.7 62 11 133/63 (86) 98 06/28/17 00:00 98.6 64 10 136/67 (90) 98 06/27/17 20:00 98.4 64 10 146/74 (98) 99 06/27/17 20:00 64 06/27/17 19:00 Nasal Cannula 2.00 21 06/27/17 17:48 20 06/27/17 17:23 96 Nasal Cannula 2.00 06/27/17 16:30 98.1 74 21 160/79 (106) 94 06/27/17 16:30 74 06/27/17 16:15 73 14 154/67 (96) 94 Nasal Cannula 2 06/27/17 16:00 71 14 134/67 (89) 95 Nasal Cannula 2 06/27/17 15:45 65 14 124/70 (88) 98 Nasal Cannula 2 06/27/17 15:32 97.8 66 12 112/61 (78) 100 Nasal Cannula 4 06/27/17 11:40 97.4 70 19 177/84 (115) 95 I/O 06/27/17 06/27/17 06/27/17 06/28/17 06/28/17 06/28/17 07:00 15:00 23:00 07:00 15:00 23:00 Intake Total 969 ml 500 ml 541 ml 1036 ml 163 ml Output Total 650 ml 1050 ml 100 ml 1050 ml Balance 319 ml -550 ml 441 ml -14 ml 163 ml Intake Oral 500 ml IV Total 969 ml 541 ml 1036 ml 163 ml Output Urine Total 650 ml 1050 ml 100 ml 1050 ml # Bowel Movements 0 0 Result Diagram: 06/28/174 06/28/17 014 Imaging Last Impressions Cervical Spine X-Ray 06/27/17 0000 Signed Impressions: Service Date/Time: Tuesday, June 27, 2017 13:31 - CONCLUSION: Intraoperative images. Russel Hong MD Thoracic Spine MRI 06/24/17 0000 Signed Impressions: Service Date/Time: Saturday, June 24, 2017 14:15 - CONCLUSION: Normal examination of the thoracic spine. Marked discogenic edema at the T12-L1 level. There may be some epidural collection at that level defer to the lumbar spine MRI for complete characterization. Ivan Patterson MD Lumbar Spine MRI 06/24/17 0000 Signed Impressions: Service Date/Time: Saturday, June 24, 2017 14:15 - CONCLUSION: 1. Discogenic edema on the T12-L1 level with vertebral body edema. The disc space height is still preserved. It is an unusual pattern for trauma. Discitis is within the differential. 2. Elongated epidural collection beginning at T12- L1 and extending at least 6.7 cm inferiorly likely epidural process such as either hematoma or infection, correlate clinically. Ivan Patterson MD Chest X-Ray 06/24/17 0000 Signed Impressions: Service Date/Time: Saturday, June 24, 2017 07:58 - CONCLUSION: 1. No acute cardiopulmonary disease. Osman Brumfield MD Cervical Spine MRI 06/24/17 0000 Signed Impressions: Service Date/Time: Saturday, June 24, 2017 14:15 - CONCLUSION: 1. Very impressive prevertebral soft tissue swelling and hematoma in the upper cervical spine. I do not see any definite fracture on the IR images in the upper cervical spine. 2. Impressive posterior soft tissue edema and some fullness of the epidural space posterior to the C5-6 level. I do not have access to a non-contrast CT scan if one has been performed or if there is a known fracture. Ivan Patterson MD Objective Remarks awake and alert, dry oral mucosa C collar in place no rales regular rhythm abdomen sosft + coon in place extremities no edema able to move both hands/fingers and toes strenght equal on all extremities sensation grossly intact Procedures 06/27- Anterior cervical C5-6 interbody fusion; partial C5 and partial C6 corpectomy; anterior C5-6 cervical plate placement; C5-6 interbody cage placement; microsurgical technique Urinary Catheter: Yes Assessment to: Continue Coon insert reason: Prolonged Immobilization Date of Insertion: Jun 26, 2017 A/P Assessment and Plan 76 years old male S/P Anterior cervical C5-6 interbody fusion; partial C5 and partial C6 corpectomy; anterior C5-6 cervical plate placement; C5-6 interbody cage placement; microsurgical technique T12-L1 fracture Neuro surgery ff short course IV steroids History of CAD S/P CABG in 2003 - he actually just seen his psych np for ff up last week- and everything is stable his last stress test was in 2014- and unremarkable Echo done with EF 60%-- stable from OP office echo we will continue his cardiac meds- ARB, BB, and statins Held ASA - for spinal surgery. He is not on any other OAC- resume ASA if OK with Neurosurgery Get speech therapy consult- with cervical collar - post c sopine surgery DVT prophylaxis TEDs/SCD Lovenox started Darrion Chester MD Jun 28, 2017 11:31
[2017-06-28] MEDS ORDERED: PHENYLEPHRINE 2.5 MG/BROMPHENIRAMINE 1 MG PER 5 ML UDC PO PRN (16:00)
--- NOTE | 2017-06-28 16:00 | HHI.CCPN ---
Subjective Brief History 76-year-old male fell off the roof was initially transferred to [facility] then transferred to us trauma transfer. Patient sustained significant injuries including Fracture of the anterior plate of C5 and C6 Unstable comminuted fracture of T12-L1 And 12th rib fracture on the left Patient's been placed in ICU appropriate c-collar is applied According to neurosurgery patient will undergo thoracolumbar fusion for this unstable fracture while the C-spine injury will heal on its 24 Hour Review/Hospital Course Patient has been stable since admission to ICU He remains neurologically intact Neurosurgery consult greatly appreciated Patient is scheduled to undergo thoracolumbar fusion by Dr. Jarrett 06/25 neuro intact pain controlled NS plan noted has also epidural hematoma 06/26 intact pain controlled preop by NS for C spine precaution 06/28 pod#1 s/p c spine repair doing well no complaints spinal precautions for unstable chance fracture Objective Vital Signs Date Time Temp Pulse Resp B/P (MAP) Pulse Ox O2 Delivery O2 Flow Rate FiO2 06/28/17 14:00 78 06/28/17 12:00 97.9 17 160/75 (103) 97 06/28/17 09:14 Nasal Cannula 1.50 06/27/17 19:00 21 Intake and Output 06/28/17 06/28/17 06/29/17 08:00 16:00 00:00 Intake Total 1036 ml 163 ml Output Total 1050 ml Balance -14 ml 163 ml Result Diagram: 06/28/17 0144 06/28/17 0144 Exam Hemodynamic/Cardiac stable Pulmonary/Respiratory RA Abdomen/GI Nutrition soft Urinary Catheter Assessment Urinary Catheter: Yes Date of Insertion: Jun 26, 2017 Vascular Central Line Catheter Vascular Central Line Catheter: No Assessment and Plan Plan stable postop cspine preop T/L spine for 06/30 pain control resume DVT prophylaxis spinal precautions speech/swallow study Jewell Liriano MD Jun 28, 2017 16:00
[2017-06-28] MEDS ORDERED: ENOXAPARIN SODIUM 40 MG/0.4 ML SYRINGE SQ SCH (18:00)
[2017-06-28] MEDS: REMOVE OLD LIDOCAINE PATCH T-DERMAL SCH (21:00)
[2017-06-29] VITALS (15 sets, daily range): BP systolic 117–167; BP diastolic 58–81; PULSE 0–94; RESP 12–31; TEMP 97.3–98.9; O2SAT 95–98
[2017-06-29] MEDS: METHOCARBAMOL 500 MG TAB PO SCH ×4 (01:00→17:26)
[2017-06-29] MEDS ORDERED: HALOPERIDOL LACTATE 5 MG/ML AMP IM ONE ×2 (01:00→04:00)
[2017-06-29] MEDS: LIDOCAINE HCL 5% PATCH T-DERMAL SCH (08:33)
[2017-06-29] MEDS: ATENOLOL 50 MG TAB PO SCH (08:33)
[2017-06-29] MEDS: PRAVASTATIN SOD 40 MG TAB PO SCH (08:33)
[2017-06-29] MEDS: FAMOTIDINE 20 MG TAB PO SCH ×2 (08:33→20:52)
[2017-06-29] MEDS: ASPIRIN 81 MG CHEW TAB CHEW SCH (08:34)
[2017-06-29] MEDS: DOCUSATE SODIUM 50 MG/SENNA 8.6 MG TAB PO SCH ×2 (08:34→20:55)
[2017-06-29] MEDS: hydrALAZINE HCL 50 MG TAB PO SCH (08:34)
[2017-06-29] MEDS: LOSARTAN 50 MG TAB PO SCH (08:34)
[2017-06-29] MEDS: MORPHINE SULFATE 4 MG/ML INJ IV PUSH PRN ×3 (08:34→17:26)
[2017-06-29] MEDS: POLYETHYLENE GLYCOL 17 GM PKG PO SCH (08:35)
[2017-06-29] MEDS: BACITRACIN TOP OINT 15 GM TUBE TOP SCH ×2 (08:35→20:56)
[2017-06-29] MEDS: SODIUM CHLORIDE 0.9% FLUSH 10 ML FLUSH IV FLUSH SCH ×2 (08:36→20:27)
--- NOTE | 2017-06-29 09:44 | HHI.NSPN ---
(Jona Newman) History Chief Complaint: low back discomfort. (Jona Newman) Interval History This is a 76 y/o M who was up on his roof which he states is 8 feet when he thinks he slipped or lost his balance. He states when he fell to the ground he never lost consciousness. He crawled into the house and asked for help. He had neck pain when he was taken to the ER in [facility] and states this is now controlled. He denies any radiculopathy into the UEs at any time. He states he has numbness in the right 1-3rd fingers in the right hand which is chronic. He denies any numbness in the left hand or upper extremities otherwise. He denies any numbness or tingling in his torso or LEs. He currently denies any thoracic or low back pain or any radicular pain into the chest or LEs. He denies any weakness after his fall although currently he is aware of his fractures and is laying flat in bed and not moving. He relates that with the pain medications his neck and low back pain is better but he does experience pain in his neck and mid back area. He has a chronic history of low back pain and usually every 6 months he has exacerbations lasting a month or so. He also complains of chronic numbness in the right median nerve distribution in the upper extremity. He relates a history of coronary artery disease with revascularization the past and is actually followed by a [employer] with a stress test 1 1/2 years an echocardiogram 6 months ago. 06/25/17: Pt complains of low back pain. Neck pain and thoracic spine pain controlled with pain medication. No radiculopathy in UEs or LEs. No paresthesias in UEs or LEs, other than chronic right 1-3rd fingers. 06/26/17. he remains very painful. No focal neurological deficits 06/27/17: Pt awake and alert. States pain controlled. No radiculopathy in UEs or LEs. Paresthesias in right 1-3 fingers chronic. Pt remains on bedrest with [place] cervical collar in place. 06/28/17: Pt awake. Mild incisional discomfort. No radiculopathy in UEs. Numbness in 1-3 fingers on right a little more prominent. No radiculopathy in chest or LEs. Back pain controlled with medication. 06/29/17: Pt awake. Had episodes of confusion last night requiring Haldol per RN. Pt complains of soreness all over. No radiculopathy in UEs or LEs. Cervical collar in place. Pt flat in bed on log roll precautions. (Jona Newman) Review of Systems General: Negative for: fever, chills, insomnia Respiratory: Negative for: shortness of breath, cough, sputum Cardiovascular: Negative for: chest pain Gastrointestinal: Negative for: nausea, vomitting, diarrhea, constipation ( Jona Newman) Exam Results Vital Signs Date Time Temp Pulse Resp B/P (MAP) Pulse Ox O2 Delivery O2 Flow Rate FiO2 06/29/17 06:00 94 06/29/17 04:00 97.3 31 143/72 (95) 98 06/28/17 20:16 Nasal Cannula 2.00 06/27/17 19:00 21 Intake and Output 06/29/17 06/29/17 06/30/17 08:00 16:00 00:00 Output Total 650 ml Balance -650 ml (Jona Newman) Physical Examination General: Pt resting in bed in NAD. Vitals are stable. Eyes: Pupils equal, sclera anicteric. Resp: CTA bilaterally Heart: NSR no murmurs Abd: Soft positive bs Skin: Minor abrasions and left periorbital ecchymosis around the left eye. SCDs in place. Anterior cervical incision clean and dry. No signs of infection or complication. Muscle: Pt remains on bedrest with HOB flat. [place] cervical collar in place. Moves all 4 extremities with good strength 5/5. Neuro: Pt awake and alert. Follows simple commands. Speech clear and appropriate. Sensation intact in extremities except for chronic 1-3 finger numbness. (Jona Newman) Lab, Micro, Other Results Last Impressions Cervical Spine X-Ray 06/27/17 0000 Signed Impressions: Service Date/Time: Tuesday, June 27, 2017 13:31 - CONCLUSION: Intraoperative images. Russel Hong MD Thoracic Spine MRI 06/24/17 0000 Signed Impressions: Service Date/Time: Saturday, June 24, 2017 14:15 - CONCLUSION: Normal examination of the thoracic spine. Marked discogenic edema at the T12-L1 level. There may be some epidural collection at that level defer to the lumbar spine MRI for complete characterization. Ivan Patterson MD Lumbar Spine MRI 06/24/17 0000 Signed Impressions: Service Date/Time: Saturday, June 24, 2017 14:15 - CONCLUSION: 1. Discogenic edema on the T12-L1 level with vertebral body edema. The disc space height is still preserved. It is an unusual pattern for trauma. Discitis is within the differential. 2. Elongated epidural collection beginning at T12- L1 and extending at least 6.7 cm inferiorly likely epidural process such as either hematoma or infection, correlate clinically. Ivan Patterson MD Chest X-Ray 06/24/17 0000 Signed Impressions: Service Date/Time: Saturday, June 24, 2017 07:58 - CONCLUSION: 1. No acute cardiopulmonary disease. Osman Brumfield MD Cervical Spine MRI 06/24/17 0000 Signed Impressions: Service Date/Time: Saturday, June 24, 2017 14:15 - CONCLUSION: 1. Very impressive prevertebral soft tissue swelling and hematoma in the upper cervical spine. I do not see any definite fracture on the IR images in the upper cervical spine. 2. Impressive posterior soft tissue edema and some fullness of the epidural space posterior to the C5-6 level. I do not have access to a non-contrast CT scan if one has been performed or if there is a known fracture. Ivan Patterson MD (Jona Newman) Medical Decision Making Impression and Plan A: 76 y/o M s/p fall from roof pt estimates 8-10 feet without LOC. C5-6 vertebral body fractures involving the anterior column with preserved facet consistent with an ankylosing spondylitis break. There is also a nondisplaced C7 vertebral body anterior fracture. 2. T12/L1 chance type fracture involving all 3 columns through the inferior aspect of T12 and superior aspect of the L1 vertebral body and facet consistent with an ankylosing spondylitis break. 3. Nasal bone fracture. 4. Rib fractures. P: Pt will maintain cervical collar at all times. He is on bedrest with log roll precautions with HOB flat. Continue with GI prophylaxis with Protonix Continue with SCDs. Thoracolumbar stabilization tentatively scheduled for tomorrow. (Jona Newman) Attending Statement The exam, history, and the medical decision-making described in the above note were completed with the assistance of the mid-level provider. I reviewed and agree with the findings presented. I attest that I had a [id number] encounter with the patient on the same day, and personally performed and documented my assessment and findings in the medical record. Stable neurologically no changes. Plan for thoracolumbar posterior spinal stabilization. Discussed risks and benefits involved and is requesting that we proceed and surgery scheduled for tomorrow morning. We will hold his Lovenox perioperatively and continue with sequential compression devices. (Mckinley Jarrett MD) Jona Newman Jun 29, 2017 09:44 Mckinley Jarrett MD Jun 29, 2017 11:26
--- NOTE | 2017-06-29 11:15 | HHI.PR ---
Subjective Remarks awake samantha lert, ff all commands per staff episode of confusion last evening per patinet well controlled pain ff all commands and moves all extremities psontaneously Objective Vitals Vital Signs Date Time Temp Pulse Resp B/P (MAP) Pulse Ox O2 Delivery O2 Flow Rate FiO2 06/29/17 10:51 17 06/29/17 10:23 95 Trach Collar 5.00 35 06/29/17 10:17 98 Nasal Cannula 1.50 06/29/17 06:00 94 06/29/17 04:00 94 06/29/17 04:00 97.3 94 31 143/72 (95) 98 06/29/17 02:00 0 06/29/17 00:00 74 06/29/17 00:00 98.3 74 14 167/81 (109) 98 06/28/17 22:00 94 06/28/17 20:16 96 Nasal Cannula 2.00 06/28/17 20:00 98.2 92 21 178/84 (115) 96 06/28/17 20:00 76 06/28/17 19:00 97 Nasal Cannula 2.00 06/28/17 18:00 78 06/28/17 16:00 96 06/28/17 16:00 98.4 96 20 161/70 (100) 96 06/28/17 14:00 78 06/28/17 12:00 79 06/28/17 12:00 97.9 79 17 160/75 (103) 97 I/O 06/28/17 06/28/17 06/28/17 06/29/17 06/29/17 06/29/17 07:00 15:00 23:00 07:00 15:00 23:00 Intake Total 1036 ml 163 ml 380 ml Output Total 1050 ml 750 ml 650 ml Balance -14 ml 163 ml -370 ml -650 ml Intake Oral 380 ml IV Total 1036 ml 163 ml Output Urine Total 1050 ml 750 ml 650 ml # Bowel Movements 0 0 Result Diagram: 06/28/1714306/28/17 014 Imaging Last Impressions Cervical Spine X-Ray 06/27/17 0000 Signed Impressions: Service Date/Time: Tuesday, June 27, 2017 13:31 - CONCLUSION: Intraoperative images. Russel Hong MD Thoracic Spine MRI 06/24/17 0000 Signed Impressions: Service Date/Time: Saturday, June 24, 2017 14:15 - CONCLUSION: Normal examination of the thoracic spine. Marked discogenic edema at the T12-L1 level. There may be some epidural collection at that level defer to the lumbar spine MRI for complete characterization. Ivan Patterson MD Lumbar Spine MRI 06/24/17 0000 Signed Impressions: Service Date/Time: Saturday, June 24, 2017 14:15 - CONCLUSION: 1. Discogenic edema on the T12-L1 level with vertebral body edema. The disc space height is still preserved. It is an unusual pattern for trauma. Discitis is within the differential. 2. Elongated epidural collection beginning at T12- L1 and extending at least 6.7 cm inferiorly likely epidural process such as either hematoma or infection, correlate clinically. Ivan Patterson MD Chest X-Ray 06/24/17 0000 Signed Impressions: Service Date/Time: Saturday, June 24, 2017 07:58 - CONCLUSION: 1. No acute cardiopulmonary disease. Osman Brumfield MD Cervical Spine MRI 06/24/17 0000 Signed Impressions: Service Date/Time: Saturday, June 24, 2017 14:15 - CONCLUSION: 1. Very impressive prevertebral soft tissue swelling and hematoma in the upper cervical spine. I do not see any definite fracture on the IR images in the upper cervical spine. 2. Impressive posterior soft tissue edema and some fullness of the epidural space posterior to the C5-6 level. I do not have access to a non-contrast CT scan if one has been performed or if there is a known fracture. Ivan Patterson MD Objective Remarks awake and alert, dry oral mucosa C collar in place no rales regular rhythm abdomen soft, good bowel sounds, tympanitic + coon in place extremities no edema able to move both hands/fingers and toes strenght equal on all extremities sensation grossly intact Procedures 06/27- Anterior cervical C5-6 interbody fusion; partial C5 and partial C6 corpectomy; anterior C5-6 cervical plate placement; C5-6 interbody cage placement; microsurgical technique Urinary Catheter: Yes Assessment to: Continue Coon insert reason: Surgical/Invasive Proced Date of Insertion: Jun 26, 2017 A/P Assessment and Plan 76 years old male S/P Anterior cervical C5-6 interbody fusion; partial C5 and partial C6 corpectomy; anterior C5-6 cervical plate placement; C5-6 interbody cage placement; microsurgical technique T12-L1 fracture Neuro surgery ff short course IV steroids going for procedure for stabilization of lumbar spine in am History of CAD S/P CABG in 2003 - he actually just seen his materials tech for ff up last week- and everything is stable his last stress test was in 2014- and unremarkable Echo done with EF 60%-- stable from OP office echo we will continue his cardiac meds- ARB, BB, and statins Held ASA - for spinal surgery. He is not on any other OAC- resume ASA if OK with Neurosurgery speech therapy ff- with cervical collar - post c spine surgery DVT prophylaxis TEDs/SCD Lovenox started Darrion Chester MD Jun 29, 2017 11:15
[2017-06-29] MEDS: SODIUM CHLOR 0.9% 1000 ML INJ 1,000 ML IV SCH ×2 (11:50→20:28)
[2017-06-29] MEDS: ACETAMINOPHEN/HYDROcodone 325 MG/10 MG TAB PO PRN ×2 (12:14→17:25)
[2017-06-29] MEDS: RESP: ALBUTEROL 2.5 MG/3 ML NEB (PRN) NEB ×2 (13:51→17:29)
--- NOTE | 2017-06-29 14:53 | HHI.CCPN ---
Subjective Brief History 76-year-old male fell off the roof was initially transferred to [facility] then transferred to us trauma transfer. Patient sustained significant injuries including Fracture of the anterior plate of C5 and C6 Unstable comminuted fracture of T12-L1 And 12th rib fracture on the left Patient's been placed in ICU appropriate c-collar is applied According to neurosurgery patient will undergo thoracolumbar fusion for this unstable fracture while the C-spine injury will heal on its 24 Hour Review/Hospital Course Patient has been stable since admission to ICU He remains neurologically intact Neurosurgery consult greatly appreciated Patient is scheduled to undergo thoracolumbar fusion by Dr. Jarrett 06/25 neuro intact pain controlled NS plan noted has also epidural hematoma 06/26 intact pain controlled preop by NS for C spine precaution 06/28 pod#1 s/p c spine repair doing well no complaints spinal precautions for unstable chance fracture 06/29 POD#2 s/p c spine repair had episode of delirium overnight-improved in AM continue spinal precautions preop labs OR tomorrow with NS Seroquel qhs Objective Vital Signs Date Time Temp Pulse Resp B/P (MAP) Pulse Ox O2 Delivery O2 Flow Rate FiO2 06/29/17 14:37 14 06/29/17 12:00 66 06/29/17 10:23 95 Trach Collar 5.00 35 06/29/17 08:00 98.2 164/80 (108) Intake and Output 06/29/17 06/29/17 06/30/17 08:00 16:00 00:00 Intake Total 1000 ml Output Total 650 ml Balance -650 ml 1000 ml Result Diagram: 06/28/17 0144 06/28/17 0144 Exam [employer] GSC 15 Hemodynamic/Cardiac stable Pulmonary/Respiratory clear B/L Abdomen/GI Nutrition soft Urinary Catheter Assessment Urinary Catheter: Yes Date of Insertion: Jun 26, 2017 Assessment and Plan Plan stable postop cspine preop T/L spine for 06/30 pain control DVT prophylaxis spinal precautions speech/swallow study-follow their diet recommendation Jewell Liriano MD Jun 29, 2017 14:53
[2017-06-29] MEDS ORDERED: DEXAMETHASONE SOD PHOS 20 MG/5 ML VIAL IV PUSH ONE (20:15)
[2017-06-29] MEDS ORDERED: RESP: RACEPINEPHRINE 2.25% 0.5 ML NEB NEB ONE (20:15)
[2017-06-29] MEDS ORDERED: hydrALAZINE HCL 20 MG/ML VIAL IV PUSH ONE (20:15)
--- NOTE | 2017-06-29 20:25 | RADRPT ---
EXAM DATE/TIME: 06/29/2017 19:55 [facility] COMPARISON: CHEST SINGLE AP, June 24, 2017, 7:58. INDICATIONS : Shortness of breath. MEDICAL HISTORY : Hypertension. SURGICAL HISTORY : CABG. Fusion, cervical. ENCOUNTER: Subsequent ACUITY: 4 - 6 days PAIN SCORE: 0/10 LOCATION: Bilateral chest FINDINGS: Subsegmental basilar air space disease. Previous median sternotomy. No pneumothorax. Previous fusion lower cervical spine. CONCLUSION: 1. Subsegmental basilar airspace disease. Previous median sternotomy. Librado Villareal MD on June 29, 2017 at 20:22 Board Certified Radiologist. This report was verified electronically.
[2017-06-29] MEDS: METOPROLOL TARTRATE 5 MG/5 ML VIAL IV PUSH SCH (20:52)
[2017-06-29] MEDS: REMOVE OLD LIDOCAINE PATCH T-DERMAL SCH (20:56)
[2017-06-29] MEDS ORDERED: INSULIN HUMAN REGULAR 1,000 UNITS/10 ML VIAL SQ PRN (22:45)
[2017-06-29] MEDS ORDERED: METOPROLOL TARTRATE 25 MG TAB PO PRN (22:45)
[2017-06-29] MEDS ORDERED: CHLORHEXIDINE GLUCONATE 2 % 1 PACK (2 CLOTHS) TOPICAL PRN (22:45)
[2017-06-29] MEDS ORDERED: POVIDONE IODINE 5% (ANTISEPSIS KIT) 4 APPLICATIONS EACH NARE PRN (22:45)
[2017-06-29] MEDS ORDERED: SODIUM CHLORID 0.9% 500 ML IV PRN (22:45)
[2017-06-29] MEDS ORDERED: LACTATED RINGER'S 1000 ML IV PRN (22:45)
[2017-06-30] VITALS (11 sets, daily range): BP systolic 122–155; BP diastolic 62–73; PULSE 73–110; RESP 9–22; TEMP 98.1–99.2; O2SAT 91–96
[2017-06-30] MEDS: METHOCARBAMOL 500 MG TAB PO SCH ×3 (01:00→16:56)
[2017-06-30] MEDS: MORPHINE SULFATE 4 MG/ML INJ IV PUSH PRN ×2 (02:45→23:12)
[2017-06-30] MEDS: METOPROLOL TARTRATE 5 MG/5 ML VIAL IV PUSH SCH ×4 (03:40→20:03)
[2017-06-30] MEDS: SODIUM CHLOR 0.9% 1000 ML INJ 1,000 ML IV SCH ×2 (07:00→19:30)
[2017-06-30] MEDS ORDERED: GELFOAM SIZE 100 ONE ×2 (07:36→09:28)
[2017-06-30] MEDS ORDERED: BUPIVACAINE/EPINEPHRINE 0.5% PF 30 ML VIAL ONE (07:36)
[2017-06-30] MEDS ORDERED: VANCOMYCIN HCL 1000 MG VIAL ONE ×3 (07:36→09:28)
[2017-06-30] MEDS ORDERED: THROMBIN (TOPICAL) 5,000 UNIT VIAL ONE ×2 (07:36→09:28)
[2017-06-30] MEDS ORDERED: FAMOTIDINE 20 MG/2 ML VIAL ONE (08:13)
--- NOTE | 2017-06-30 08:13 | HHI.PR ---
Neuropsych Behavior Behavior: Intact: Coping/Acceptance, Cooperative w/ Treatment, Motivation, Mild : Impulsive/Agitated Cognitive Cognitive: Mild: Cognitive, Attention/Concentration, Confused/Orientation, Insight/Awareness, Judgement/Problem-Solving, Memory Psychosocial Psychosocial: Intact: Psychosocial, Family/Other Adjustment, Realistic Expectation, Unable to Asses: Self-Esteem/Confidence Progress Notes/Response to Tx Contents of Sessions: Adjustment, Level of Consciousness Time with Patient: 15 minutes Premorbid psychological status Premorbid Cognitive, Emotional and Behavioral Status: Stable. The patient has high school education and a solid work history prior to this injury. The patient has no prior psychiatric difficulties, as described above. Substance abuse history is unremarkable. Behavioral Reactions of Patient and Family/Support System: Stable. The patient s family is experiencing ongoing issues of adjustment given the nature of the injury, and this aspect of recovery will require ongoing monitoring. Emotional/Behavioral Status of Patient and Family/Support System: Stable. Pertinent issues, if appropriate to this patients clinical care, are described in detail above. Maximizing acute care outcome It is recommended that the patient be monitored for potential neurocognitive issues as the medical condition evolves. This patients neuropathological challenges may limit his rehabilitation potential going forward, and these challenges will require specialized therapeutic skills to maximize outcome. Additionally, the patients family is experiencing ongoing issues of adjustment given the traumatic nature of the injury, and they may benefit from ongoing psychological assistance. At this point in the recovery process, the patient does have cognitive capacity as the patient is able to understand a situation and its likely consequences, and he is able to manipulate information rationally. Cognitive capacity will be assessed throughout the recovery process. Anticipated Problems Ongoing areas of concern will include potential neurocognitive issues, which would be expected to improve with time and treatment. Presently, the patient is following commands. Treatment Plan This clinician will continue to follow with you throughout the course of this patients acute care treatment, and I will be available to meet with the patient s family/support system to facilitate their understanding and the ongoing care of their family member. The goals of neuropsychological intervention shall be both educational and supportive to the family/support system as is deemed clinically appropriate. [facility] Level: :Confused-appropriate Disinhibition Score: 14 Aggression Score: 14 Lability Score: 14 Agitated Behavior Total Score: 19 Impression 76 year old man s/p fall from roof with vertebral fractures at C5-6 and T12-L1. No indication of concussive type injury. Diagnosis: (1) Cervical spine fracture Status: Acute (2) Fracture of lumbar spine Status: Acute Progress Note Narrative Ongoing follow-up of patient seen during daily trauma rounds. This is day 6 post injury. He was out of ISC this morning, in the OR. The patient experienced an episode of delirium the night before, requiring IM Haldol. He is reportedly improved at this point. I will continue to follow. Problem Qualifiers (1) Cervical spine fracture: (2) Fracture of lumbar spine: Qualified Codes: S32.019A - Unspecified fracture of first lumbar vertebra, initial encounter for closed fracture Catracho Lemon PhD Jun 30, 2017 8:13 am
[2017-06-30] MEDS: FAMOTIDINE 20 MG TAB PO SCH ×2 (08:15→20:03)
[2017-06-30] MEDS: DOCUSATE SODIUM 50 MG/SENNA 8.6 MG TAB PO SCH ×2 (08:15→20:03)
[2017-06-30] MEDS: SODIUM CHLORIDE 0.9% FLUSH 10 ML FLUSH IV FLUSH SCH ×2 (08:15→23:11)
[2017-06-30] MEDS: ASPIRIN 81 MG CHEW TAB CHEW SCH (08:15)
[2017-06-30] MEDS: POLYETHYLENE GLYCOL 17 GM PKG PO SCH (08:15)
[2017-06-30] MEDS: LOSARTAN 50 MG TAB PO SCH (08:15)
[2017-06-30] MEDS: LIDOCAINE HCL 5% PATCH T-DERMAL SCH (08:16)
[2017-06-30] MEDS: PRAVASTATIN SOD 40 MG TAB PO SCH (08:16)
[2017-06-30] MEDS: BACITRACIN TOP OINT 15 GM TUBE TOP SCH ×2 (08:16→21:00)
[2017-06-30] MEDS ORDERED: PROPOFOL 500 MG/50 ML INJ 50 ML ONE ×2 (08:24→08:25)
[2017-06-30] MEDS ORDERED: HYDROmorphone HCL PF 2 MG/ML VIAL ONE (08:25)
[2017-06-30] MEDS ORDERED: ALBUMIN 25% INJ 100 ML IV ONE (09:13)
[2017-06-30] MEDS ORDERED: ONDANSETRON HCL 4 MG/2 ML VIAL IV ONE (12:00)
[2017-06-30] MEDS ORDERED: PHENYLEPH/NS 1000 MCG/10 ML SYR IV ONE (12:00)
[2017-06-30] MEDS ORDERED: DEXAMETHASONE SOD PHOS 4 MG/ML VIAL IV ONE (12:00)
[2017-06-30] MEDS ORDERED: MIDAZOLAM HCL 2 MG/2 ML VIAL IV ONE (12:00)
[2017-06-30] MEDS ORDERED: LIDOCAINE HCL 1% PF 5 ML SYRINGE OTHER ONE (12:00)
[2017-06-30] MEDS ORDERED: PROPOFOL 200 MG/20 ML AMP IV ONE (12:00)
[2017-06-30] MEDS ORDERED: ePHEDrine/NS 25 MG/5 ML SYR IV ONE (12:00)
[2017-06-30] MEDS ORDERED: PHENYLEPHRINE HCL 10 MG/ML VIAL IV ONE (12:00)
[2017-06-30] MEDS ORDERED: ROCURONIUM INJ 50 MG/5 ML SYRINGE IV PUSH ONE (12:00)
[2017-06-30] MEDS ORDERED: PROPOFOL 500 MG/50 ML INJ 100 ML ONE (12:14)
--- NOTE | 2017-06-30 12:48 | HHI.PR ---
Subjective Remarks off the floor in surgery- for lumbar stabilization seen in room- post procedure ff some commands Objective Vitals Vital Signs Date Time Temp Pulse Resp B/P (MAP) Pulse Ox O2 Delivery O2 Flow Rate FiO2 06/30/17 08:00 83 06/30/17 08:00 99.1 83 14 155/73 (100) 96 06/30/17 07:00 Nasal Cannula 2.00 06/30/17 06:00 81 06/30/17 04:00 73 06/30/17 04:00 99.1 73 9 149/66 (93) 96 06/30/17 02:00 79 06/30/17 00:00 80 06/30/17 00:00 99.1 80 11 150/70 (96) 96 06/29/17 22:00 76 06/29/17 20:00 98 Nasal Cannula 2.00 06/29/17 20:00 98.4 83 21 156/74 (101) 98 06/29/17 20:00 69 06/29/17 20:00 69 06/29/17 19:42 97 Nasal Cannula 1.50 06/29/17 18:00 72 06/29/17 17:31 13 06/29/17 16:00 98.1 64 12 117/58 (77) 98 06/29/17 16:00 64 06/29/17 14:37 14 06/29/17 14:00 60 I/O 06/29/17 06/29/17 06/29/17 06/30/17 06/30/17 06/30/17 07:00 15:00 23:00 07:00 15:00 23:00 Intake Total 1000 ml 400 ml 689 ml Output Total 650 ml 650 ml 600 ml Balance -650 ml 1000 ml -250 ml 89 ml Intake Oral 400 ml IV Total 1000 ml 689 ml Output Urine Total 650 ml 650 ml 600 ml # Bowel Movements 0 Result Diagram: 06/28/174 06/28/17 014 Imaging Last Impressions Chest X-Ray 06/29/17 0000 Signed Impressions: Service Date/Time: Thursday, June 29, 2017 19:55 - CONCLUSION: 1. Subsegmental basilar airspace disease. Previous median sternotomy. Librado Villareal MD Cervical Spine X-Ray 06/27/17 0000 Signed Impressions: Service Date/Time: Tuesday, June 27, 2017 13:31 - CONCLUSION: Intraoperative images. Russel Hong MD Thoracic Spine MRI 06/24/17 0000 Signed Impressions: Service Date/Time: Saturday, June 24, 2017 14:15 - CONCLUSION: Normal examination of the thoracic spine. Marked discogenic edema at the T12-L1 level. There may be some epidural collection at that level defer to the lumbar spine MRI for complete characterization. Ivan Patterson MD Lumbar Spine MRI 06/24/17 0000 Signed Impressions: Service Date/Time: Saturday, June 24, 2017 14:15 - CONCLUSION: 1. Discogenic edema on the T12-L1 level with vertebral body edema. The disc space height is still preserved. It is an unusual pattern for trauma. Discitis is within the differential. 2. Elongated epidural collection beginning at T12- L1 and extending at least 6.7 cm inferiorly likely epidural process such as either hematoma or infection, correlate clinically. Ivan Patterson MD Cervical Spine MRI 06/24/17 0000 Signed Impressions: Service Date/Time: Saturday, June 24, 2017 14:15 - CONCLUSION: 1. Very impressive prevertebral soft tissue swelling and hematoma in the upper cervical spine. I do not see any definite fracture on the IR images in the upper cervical spine. 2. Impressive posterior soft tissue edema and some fullness of the epidural space posterior to the C5-6 level. I do not have access to a non-contrast CT scan if one has been performed or if there is a known fracture. Ivan Patterson MD Objective Remarks opened eyes to call of his name C collar in place no rales regular rhythm abdomen soft, good bowel sounds, tympanitic + coon in place extremities no edema gripped when hands held Procedures 06/27- Anterior cervical C5-6 interbody fusion; partial C5 and partial C6 corpectomy; anterior C5-6 cervical plate placement; C5-6 interbody cage placement; microsurgical technique 06/30- lumbar stabilization Urinary Catheter: Yes Assessment to: Continue Coon insert reason: Prolonged Immobilization Date of Insertion: Jun 26, 2017 A/P Assessment and Plan 76 years old male S/P Anterior cervical C5-6 interbody fusion; partial C5 and partial C6 corpectomy; anterior C5-6 cervical plate placement; C5-6 interbody cage placement- 06/27 S/P T12-L1 laminectomy with evacuation of epidural hematoma 06/30 Neuro surgery ff History of CAD S/P CABG in 2003 - 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 He is not on any other OAC- resume ASA if OK with Neurosurgery speech therapy ff- DVT prophylaxis TEDs/SCD Lovenox - held for procedure Darrion Chester MD Jun 30, 2017 12:48
--- NOTE | 2017-06-30 14:25 | HHI.CCPN ---
Subjective Brief History 76-year-old male fell off the roof was initially transferred to [facility] then transferred to us trauma transfer. Patient sustained significant injuries including Fracture of the anterior plate of C5 and C6 Unstable comminuted fracture of T12-L1 And 12th rib fracture on the left Patient's been placed in ICU appropriate c-collar is applied According to neurosurgery patient will undergo thoracolumbar fusion for this unstable fracture while the C-spine injury will heal on its 24 Hour Review/Hospital Course Patient has been stable since admission to ICU He remains neurologically intact Neurosurgery consult greatly appreciated Patient is scheduled to undergo thoracolumbar fusion by Dr. Jarrett 06/25 neuro intact pain controlled NS plan noted has also epidural hematoma 06/26 intact pain controlled preop by NS for C spine precaution 06/28 pod#1 s/p c spine repair doing well no complaints spinal precautions for unstable chance fracture 06/29 POD#2 s/p c spine repair had episode of delirium overnight-improved in AM continue spinal precautions preop labs OR tomorrow with NS Seroquel qhs 06/30/17 Patient is awake alert but somewhat disoriented better this morning he status post C-spine C5-C6 fixation Bilateral good breath sounds Abdomen soft active bowel sounds Patient undergo repeat CT scan of the neck Patient full neurologically intact Will be able to transfer to floor Objective Vital Signs Date Time Temp Pulse Resp B/P (MAP) Pulse Ox O2 Delivery O2 Flow Rate FiO2 06/30/17 08:00 83 06/30/17 08:00 99.1 14 155/73 (100) 96 06/30/17 07:00 Nasal Cannula 2.00 06/29/17 10:23 35 Intake and Output 06/30/17 06/30/17 07/01/17 08:00 16:00 00:00 Intake Total 689 ml Output Total 600 ml Balance 89 ml Result Diagram: 06/28/17 0144 06/28/17 0144 Urinary Catheter Assessment Date of Insertion: Jun 26, 2017 Assessment and Plan Plan stable postop cspine preop T/L spine for 06/30 pain control DVT prophylaxis spinal precautions speech/swallow study-follow their diet recommendation Attestation Critical care time 35 minutes Pramod Larsen MD Jun 30, 2017 14:25
[2017-06-30] MEDS ORDERED: DO NOT ADM ANY ANTICOAGULANT DRUGS PRN (14:42)
--- NOTE | 2017-06-30 14:50 | PD.OP ---
Operative Report Date of Surgery: Jun 30, 2017 Preoperative Diagnosis: T12 and L1 Chance ankylosing spondylitis fracture involving all 3 columns with moderate spinal stenosis from T12-L2 epidural hematoma Postoperative Diagnosis: Same Procedure: Posterolateral T11, T12, L1, L2, and L3 fusion; T11-L3 pedicle screw fixation; T12-L2 decompressive laminectomy with epidural hematoma evacuation; harvesting of left iliac crest autograft; Dylan surgical technique Anesthesia: Gen. endotracheal by Florencio gallegos Surgeon: Mckinley Jarrett M.D. Boxing Instructor(s): Lola Barros Operation and Findings: The procedure along with the risks and benefits involved were discussed with the patient including the option of nonsurgical management. He requested that we proceed with surgery and informed consent was obtained. Following initiation of a general endotracheal anesthesia with the neck maintained in neutral position in the Geneva J collar, Hawkins catheter was in place along with sequential compression devices and he was log rolled on a Johnnie table on chest rolls in the prone position and all pressure points adequately padded. The posterior thoracic lumbar and left iliac crest area was then shaved and prepped with alcohol along with ChloraPrep and sterilely draped with Ioban along with the usual sterile draping. Intraoperative fluoroscopy was used for level confirmation an incision in the midline made extending from that T11 to the L3 levels after infiltrating the skin with 0.5% Marcaine with epinephrine solution. The incision was extended down through the fascia and then using the subperiosteal plane the muscle attachments spinous processes and lamina along with the facets were detached from the T11 to L3 levels bilaterally. Self- retaining retractor was used for exposure and the facet displaying and ligamentous disruption and instability with fracture of the ankylosing spondylitis fusion at the T12-L1 level was noted. Further dissection was undertaken using microtechnique with microscope magnification. The left T12, L1 and L2 lamina were resected with a drill bit and Kerrison along with the underlying ligamentum flavum and clotted the epidural hemorrhage was identified in the dorsal aspect of the spinal canal which was evacuated spinal canal decompressed. Epidural venous stasis achieved with bipolar cautery along with Gelfoam and thrombin. Subsequently pedicle screw fixation was undertaken using [place] spine screws with the entry point ejection of the transverse process and facet at the T11 and T12 levels as well as L2 and L3 levels bilaterally. AP and lateral fluoroscopy guidance was used to and subsequently tap and screw placement bilaterally extending from T11 to the L3 levels which were then connected with the rods and locked in place with caps. I then decorticated the posterior lateral remnants of the laminae and facet lumbar transverse processes on the right side extending from T11 to L3 levels with a drill bit for posterolateral fusion. Incision overlying the left iliac crest was then and made after infiltrating the skin with 0.5% Marcaine with epinephrine extending down through the fascia and the musculature of the crest were detached. Cortical and cancellous bone harvested using gouges and hemostasis achieved with Gelfoam and thrombin. The fascia was then closed with 2-0 Vicryl interrupted sutures and then 3-0 Vicryl subcuticular sutures also placed in an interrupted fashion and final skin closure was with ankit. The iliac crest autograft bone along with the local autograft bone from the laminectomy as well as demineralized bone matrix was then packed overlying the decorticated the posterior lateral elements extending from the T11 to the L3 level. A LOVELY 10 mm drain was also placed in the muscular layer which is then tunneled under the skin and secured at separate exit site and connected to a suction bulb. The area was copiously irrigated with vancomycin solution. AP and lateral fluoroscopy confirmed good placement of the construct as well as mandaen of the spinal alignment. The muscle and fascia was then approximated using 2-0 Vicryl interrupted stitches and 3-0 Vicryl subcuticular interrupted stitches were also placed with final skin closure using ankit. Sterile dressings were then applied and he was then log roll supine position and extubated and taken recovery room. There were no intraoperative complications and all sponge and needle count was correct at the end the procedure. Estimated blood loss about 300 cc. Intraoperative neurologic monitoring was also undertaken which remained stable throughout the surgery. Mckinley Jarrett MD Jun 30, 2017 14:50
[2017-06-30 15:43] LABS: HEMATOCRIT 28.1 % (39.0-51.0); MEAN CELL VOLUME 84.4 FL (80.0-100.0); MEAN CORPUSCULAR HEMOGLOBIN 28.1 PG (27.0-34.0); MEAN CORPUSCULAR HGB CONC 33.3 % (32.0-36.0); PLATELET COUNT 176 TH/MM3 (150-450); RED BLOOD COUNT 3.33 MIL/MM3 (4.50-5.90); RED CELL DISTRIBUTION WIDTH 14.3 % (11.6-17.2); REVIEW FLAG FINAL; WHITE BLOOD COUNT 9.5 TH/MM3 (4.0-11.0)
[2017-06-30 16:09] LABS: BICARBONATE 28.9 MEQ/L (21.0-32.0); MAGNESIUM 2.5 MG/DL (1.5-2.5); POTASSIUM 3.8 MEQ/L (3.5-5.1)
--- NOTE | 2017-06-30 16:17 | RADRPT ---
EXAM DATE/TIME: 06/30/2017 08:48 [facility] COMPARISON: No previous studies available for comparison. INDICATIONS : Post-op T11 to L3 posterior thoracolumbar fusion. MEDICAL HISTORY : None. SURGICAL HISTORY : None. ENCOUNTER: Subsequent ACUITY: 1 week PAIN SCORE: Non-responsive. LOCATION: Thoracolumbar spine. FINDINGS: 4 magnified C-arm spot views are centered over the lumbar spine. These show bilateral transpedicular fixation extending from from T11-L3. Fixation hardware is absent at L1. Vertical stabilizing bars not ed. Alignment seen. Degenerative disc disease noted throughout. CONCLUSION: Limited images as detailed above. Russel June Jr., MD on June 30, 2017 at 16:13 Board Certified Radiologist. This report was verified electronically.
[2017-06-30 16:28] LABS: CALCIUM-PROTEIN CORRECTED 8.5 MG/DL (8.5-10.1)
[2017-06-30] MEDS: ACETAMINOPHEN/HYDROcodone 325 MG/10 MG TAB PO PRN (20:04)
[2017-06-30] MEDS: REMOVE OLD LIDOCAINE PATCH T-DERMAL SCH (21:00)
[2017-07-01] VITALS (15 sets, daily range): BP systolic 96–170; BP diastolic 52–87; PULSE 72–106; RESP 10–19; TEMP 96.3–98.9; O2SAT 95–100
[2017-07-01] MEDS: METHOCARBAMOL 500 MG TAB PO SCH ×3 (00:58→17:00)
[2017-07-01] MEDS: METOPROLOL TARTRATE 5 MG/5 ML VIAL IV PUSH SCH ×2 (01:54→07:51)
[2017-07-01] MEDS: MORPHINE SULFATE 4 MG/ML INJ IV PUSH PRN (01:54)
[2017-07-01] MEDS: SODIUM CHLOR 0.9% 1000 ML INJ 1,000 ML IV SCH ×3 (03:42→22:43)
[2017-07-01 04:48] LABS: AUTOMATED NEUTROPHIL # 9.3 TH/MM3 (1.8-7.7); BASOPHIL % 0.1 % (0.0-2.0); HEMATOCRIT 26.2 % (39.0-51.0); HEMO FLAGS DIFF FINAL; LYMPH % 8.8 % (9.0-44.0); LYMPHOCYTE # 1.1 TH/MM3 (1.0-4.8); MEAN CELL VOLUME 83.3 FL (80.0-100.0); MEAN CORPUSCULAR HEMOGLOBIN 27.9 PG (27.0-34.0); MEAN CORPUSCULAR HGB CONC 33.5 % (32.0-36.0); MONO % 13.9 % (0.0-8.0); NEUT % 77.2 % (16.0-70.0); PLATELET COUNT 178 TH/MM3 (150-450); RED BLOOD COUNT 3.14 MIL/MM3 (4.50-5.90); RED CELL DISTRIBUTION WIDTH 14.3 % (11.6-17.2)
[2017-07-01 05:10] LABS: BICARBONATE 29.7 MEQ/L (21.0-32.0); POTASSIUM 4.1 MEQ/L (3.5-5.1)
[2017-07-01] MEDS: DOCUSATE SODIUM 50 MG/SENNA 8.6 MG TAB PO SCH ×2 (07:48→20:06)
[2017-07-01] MEDS: PRAVASTATIN SOD 40 MG TAB PO SCH (07:50)
[2017-07-01] MEDS: LOSARTAN 50 MG TAB PO SCH (07:50)
[2017-07-01] MEDS: ACETAMINOPHEN/HYDROcodone 325 MG/10 MG TAB PO PRN ×3 (07:50→20:06)
[2017-07-01] MEDS: FAMOTIDINE 20 MG TAB PO SCH ×2 (07:50→20:05)
[2017-07-01] MEDS: POLYETHYLENE GLYCOL 17 GM PKG PO SCH (07:51)
[2017-07-01] MEDS: ASPIRIN 81 MG CHEW TAB CHEW SCH (07:51)
[2017-07-01] MEDS: SODIUM CHLORIDE 0.9% FLUSH 10 ML FLUSH IV FLUSH SCH ×2 (07:51→20:05)
[2017-07-01] MEDS: LIDOCAINE HCL 5% PATCH T-DERMAL SCH (07:52)
--- NOTE | 2017-07-01 08:29 | HHI.PR ---
Neuropsych Behavior Behavior: Intact: Coping/Acceptance, Cooperative w/ Treatment, Motivation, Frustration Tolerance/[place] Cognitive Cognitive: Mild: Cognitive, Attention/Concentration, Confused/Orientation, Insight/Awareness, Judgement/Problem-Solving, Memory Psychosocial Psychosocial: Intact: Psychosocial, Family/Other Adjustment, Realistic Expectation, Unable to Asses: Self-Esteem/Confidence Progress Notes/Response to Tx Contents of Sessions: Adjustment Time with Patient: 15 minutes Premorbid psychological status Premorbid Cognitive, Emotional and Behavioral Status: Stable. The patient has high school education and a solid work history prior to this injury. The patient has no prior psychiatric difficulties, as described above. Substance abuse history is unremarkable. Behavioral Reactions of Patient and Family/Support System: Stable. The patient s family is experiencing ongoing issues of adjustment given the nature of the injury, and this aspect of recovery will require ongoing monitoring. Emotional/Behavioral Status of Patient and Family/Support System: Stable. Pertinent issues, if appropriate to this patients clinical care, are described in detail above. Maximizing acute care outcome It is recommended that the patient be monitored for potential neurocognitive issues as the medical condition evolves. This patients neuropathological challenges may limit his rehabilitation potential going forward, and these challenges will require specialized therapeutic skills to maximize outcome. Additionally, the patients family is experiencing ongoing issues of adjustment given the traumatic nature of the injury, and they may benefit from ongoing psychological assistance. At this point in the recovery process, the patient does have cognitive capacity as the patient is able to understand a situation and its likely consequences, and he is able to manipulate information rationally. Cognitive capacity will be assessed throughout the recovery process. Anticipated Problems Ongoing areas of concern will include potential neurocognitive issues, which would be expected to improve with time and treatment. Presently, the patient is following commands. Treatment Plan This clinician will continue to follow with you throughout the course of this patients acute care treatment, and I will be available to meet with the patient s family/support system to facilitate their understanding and the ongoing care of their family member. The goals of neuropsychological intervention shall be both educational and supportive to the family/support system as is deemed clinically appropriate. Disinhibition Score: 14 Aggression Score: 14 Lability Score: 14 Agitated Behavior Total Score: 14 Impression 76 year old man s/p fall from roof with vertebral fractures at C5-6 and T12-L1. No indication of concussive type injury. Diagnosis: (1) Cervical spine fracture Status: Acute (2) Fracture of lumbar spine Status: Acute Progress Note Narrative Ongoing follow-up of patient seen during daily trauma rounds. This is day 7 post injury. The patient is s/p C5-6 fixation, and is able to transfer to the floor. He is not agitated/restless, corroborated by ABS score of 14 total. I will continue to follow him for possible neurobehavioral issues as he transitions throughout the hospital. Problem Qualifiers (1) Cervical spine fracture: (2) Fracture of lumbar spine: Qualified Codes: S32.019A - Unspecified fracture of first lumbar vertebra, initial encounter for closed fracture Catracho Lemon PhD Jul 01, 2017 8:29 am
[2017-07-01] MEDS: BACITRACIN TOP OINT 15 GM TUBE TOP SCH ×2 (09:00→20:07)
--- NOTE | 2017-07-01 09:43 | HHI.NSPN ---
(Jona Newman) History Chief Complaint: low back discomfort. (Jona Newman) Interval History This is a 76 y/o M who was up on his roof which he states is 8 feet when he thinks he slipped or lost his balance. He states when he fell to the ground he never lost consciousness. He crawled into the house and asked for help. He had neck pain when he was taken to the ER in [facility] and states this is now controlled. He denies any radiculopathy into the UEs at any time. He states he has numbness in the right 1-3rd fingers in the right hand which is chronic. He denies any numbness in the left hand or upper extremities otherwise. He denies any numbness or tingling in his torso or LEs. He currently denies any thoracic or low back pain or any radicular pain into the chest or LEs. He denies any weakness after his fall although currently he is aware of his fractures and is laying flat in bed and not moving. He relates that with the pain medications his neck and low back pain is better but he does experience pain in his neck and mid back area. He has a chronic history of low back pain and usually every 6 months he has exacerbations lasting a month or so. He also complains of chronic numbness in the right median nerve distribution in the upper extremity. 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 06/25/17: Pt complains of low back pain. Neck pain and thoracic spine pain controlled with pain medication. No radiculopathy in UEs or LEs. No paresthesias in UEs or LEs, other than chronic right 1-3rd fingers. 06/26/17. he remains very painful. No focal neurological deficits 06/27/17: Pt awake and alert. States pain controlled. No radiculopathy in UEs or LEs. Paresthesias in right 1-3 fingers chronic. Pt remains on bedrest with Boyle cervical collar in place. 06/28/17: Pt awake. Mild incisional discomfort. No radiculopathy in UEs. Numbness in 1-3 fingers on right a little more prominent. No radiculopathy in chest or LEs. Back pain controlled with medication. 06/29/17: Pt awake. Had episodes of confusion last night requiring Haldol per RN. Pt complains of soreness all over. No radiculopathy in UEs or LEs. Cervical collar in place. Pt flat in bed on log roll precautions. 07/01/17: Pt awake and alert. Complains of soreness but pain controlled. No radiculopathy in UEs or LEs. No paresthesias in extremities. Pt sitting up in bed with cervical collar and TLSO brace on. (Jona Newman) Review of Systems General: Negative for: fever, chills, insomnia Respiratory: Negative for: shortness of breath, cough, sputum Cardiovascular: Negative for: chest pain Gastrointestinal: Negative for: nausea, vomitting, diarrhea, constipation ( Jona Newman) Exam Results Vital Signs Date Time Temp Pulse Resp B/P (MAP) Pulse Ox O2 Delivery O2 Flow Rate FiO2 07/01/17 06:00 78 07/01/17 04:00 98.4 15 130/60 (83) 100 07/01/17 03:31 Nasal Cannula 3.00 06/30/17 22:07 35 Intake and Output 07/01/17 07/01/17 07/02/17 08:00 16:00 00:00 Intake Total 866 ml Output Total 715 ml Balance 151 ml (Jona Newman) Physical Examination General: Pt resting in bed in NAD. Vitals are stable. Eyes: Pupils equal, sclera anicteric. Resp: CTA bilaterally Heart: NSR no murmurs Abd: Soft positive bs Skin: Minor abrasions and left periorbital ecchymosis around the left eye. SCDs in place. Anterior cervical incision clean and dry. No signs of infection or complication. Muscle: Boyle cervical collar in place. Moves all 4 extremities with good strength 5/5 in LEs. 4+ strength in UEs. Neuro: Pt awake and alert. Follows simple commands. Speech clear and appropriate. Sensation intact in extremities except for chronic 1-3 finger numbness. (Jona Newman) Lab, Micro, Other Results Last Impressions Thoracolumbar Spine 06/30/17 0000 Signed Impressions: Service Date/Time: Friday, June 30, 2017 08:48 - CONCLUSION: Limited images as detailed above. Russel June Jr., MD Chest X-Ray 06/29/17 0000 Signed Impressions: Service Date/Time: Thursday, June 29, 2017 19:55 - CONCLUSION: 1. Subsegmental basilar airspace disease. Previous median sternotomy. Librado Villareal MD Cervical Spine X-Ray 06/27/17 0000 Signed Impressions: Service Date/Time: Tuesday, June 27, 2017 13:31 - CONCLUSION: Intraoperative images. Russel Hong MD Thoracic Spine MRI 06/24/17 0000 Signed Impressions: Service Date/Time: Saturday, June 24, 2017 14:15 - CONCLUSION: Normal examination of the thoracic spine. Marked discogenic edema at the T12-L1 level. There may be some epidural collection at that level defer to the lumbar spine MRI for complete characterization. Ivan Patterson MD Lumbar Spine MRI 06/24/17 0000 Signed Impressions: Service Date/Time: Saturday, June 24, 2017 14:15 - CONCLUSION: 1. Discogenic edema on the T12-L1 level with vertebral body edema. The disc space height is still preserved. It is an unusual pattern for trauma. Discitis is within the differential. 2. Elongated epidural collection beginning at T12- L1 and extending at least 6.7 cm inferiorly likely epidural process such as either hematoma or infection, correlate clinically. Ivan Patterson MD Cervical Spine MRI 06/24/17 0000 Signed Impressions: Service Date/Time: Saturday, June 24, 2017 14:15 - CONCLUSION: 1. Very impressive prevertebral soft tissue swelling and hematoma in the upper cervical spine. I do not see any definite fracture on the IR images in the upper cervical spine. 2. Impressive posterior soft tissue edema and some fullness of the epidural space posterior to the C5-6 level. I do not have access to a non-contrast CT scan if one has been performed or if there is a known fracture. Ivan Patterson MD Laboratory Tests Test 06/30/17 15:21 07/01/17 04:30 White Blood Count 9.5 TH/MM3 12.0 TH/MM3 Red Blood Count 3.33 MIL/MM3 3.14 MIL/MM3 Hemoglobin 9.4 GM/DL 8.8 GM/DL Hematocrit 28.1 % 26.2 % Mean Corpuscular Volume 84.4 FL 83.3 FL Mean Corpuscular Hemoglobin 28.1 PG 27.9 PG Mean Corpuscular Hemoglobin Concent 33.3 % 33.5 % Red Cell Distribution Width 14.3 % 14.3 % Platelet Count 176 TH/MM3 178 TH/MM3 Mean Platelet Volume 7.3 FL 7.1 FL Blood Urea Nitrogen 26 MG/DL 24 MG/DL Creatinine 0.75 MG/DL 0.56 MG/DL Random Glucose 116 MG/DL 101 MG/DL Total Protein 5.0 GM/DL Calcium Level 7.3 MG/DL 7.6 MG/DL Magnesium Level 2.5 MG/DL Sodium Level 140 MEQ/L 142 MEQ/L Potassium Level 3.8 MEQ/L 4.1 MEQ/L Chloride Level 104 MEQ/L 106 MEQ/L Carbon Dioxide Level 28.9 MEQ/L 29.7 MEQ/L Anion Gap 7 MEQ/L 6 MEQ/L Estimat Glomerular Filtration Rate 101 ML/MIN 142 ML/MIN Protein Corrected Calcium 8.5 MG/DL Neutrophils (%) (Auto) 77.2 % Lymphocytes (%) (Auto) 8.8 % Monocytes (%) (Auto) 13.9 % Eosinophils (%) (Auto) 0.0 % Basophils (%) (Auto) 0.1 % Neutrophils # (Auto) 9.3 TH/MM3 Lymphocytes # (Auto) 1.1 TH/MM3 Monocytes # (Auto) 1.7 TH/MM3 Eosinophils # (Auto) 0.0 TH/MM3 Basophils # (Auto) 0.0 TH/MM3 CBC Comment DIFF FINAL Differential Comment (Jona Newman) Medical Decision Making Impression and Plan A: 76 y/o M s/p fall from roof pt estimates 8-10 feet without LOC. C5-6 vertebral body fractures involving the anterior column with preserved facet consistent with an ankylosing spondylitis break. There is also a nondisplaced C7 vertebral body anterior fracture. Anterior cervical C5-6 interbody fusion; partial C5 and partial C6 corpectomy; anterior C5-6 cervical plate placement; C5-6 interbody cage placement; microsurgical technique 2. T12/L1 chance type fracture involving all 3 columns through the inferior aspect of T12 and superior aspect of the L1 vertebral body and facet consistent with an ankylosing spondylitis break, s/p Posterolateral T11, T12, L1, L2, and L3 fusion; T11-L3 pedicle screw fixation; T12-L2 decompressive laminectomy with epidural hematoma evacuation; harvesting of left iliac crest autograft; Microsurgical technique on 06/30/17 3. Nasal bone fracture. 4. Rib fractures. P: Pt will maintain cervical collar at all times. TLSO brace on prior to sitting, standing, or walking. Continue with GI prophylaxis with Protonix Continue with SCDs. Rehab efforts. (Jona Newman) Attending Statement The exam, history, and the medical decision-making described in the above note were completed with the assistance of the mid-level provider. I reviewed and agree with the findings presented. I attest that I had a [id number] encounter with the patient on the same day, and personally performed and documented my assessment and findings in the medical record. He is doing well from his cervical and thoracolumbar surgeries. Focus on rehabilitation. (Mckinley Jarrett MD) Jona Newman Jul 01, 2017 09:43 Mckinley Jarrett MD Jul 01, 2017 17:44
--- NOTE | 2017-07-01 13:40 | HHI.PR ---
Subjective Remarks awake and alert complians of some neck collar discomfort no complains of radiculopathy Objective Vitals Vital Signs Date Time Temp Pulse Resp B/P (MAP) Pulse Ox O2 Delivery O2 Flow Rate FiO2 07/01/17 06:00 78 07/01/17 04:00 72 07/01/17 04:00 98.4 72 15 130/60 (83) 100 07/01/17 03:31 100 Nasal Cannula 3.00 07/01/17 02:00 90 07/01/17 00:00 98.7 84 10 134/56 (82) 97 07/01/17 00:00 84 06/30/17 22:07 96 Venturi Mask 6.00 35 06/30/17 22:00 84 06/30/17 20:00 108 06/30/17 20:00 99.2 108 18 130/62 (84) 92 06/30/17 19:00 92 Venturi Mask 50 06/30/17 18:00 110 06/30/17 16:22 92 Partial Rebreather 12.00 06/30/17 16:00 106 06/30/17 16:00 98.1 106 22 91 122/65 (84) 06/30/17 16:00 101 15 112/60 (77) 93 Nasal Cannula 4 06/30/17 15:45 97.6 100 15 110/59 (76) 92 Nasal Cannula 4 116/50 (72) 06/30/17 15:30 98 15 102/52 (69) 93 Nasal Cannula 4 112/51 (71) 06/30/17 15:15 96 15 99/65 (76) 92 Nasal Cannula 4 94/52 (66) 06/30/17 15:00 90 14 107/63 (78) 92 Nasal Cannula 4 113/49 (70) 06/30/17 14:45 91 14 106/60 (75) 96 Simple Mask 7 112/53 (72) 06/30/17 14:42 98.0 94 12 121/57 (78) 100 Simple Mask 7 114/58 (76) I/O 06/30/17 06/30/17 06/30/17 07/01/17 07/01/17 07/01/17 07:00 15:00 23:00 07:00 15:00 23:00 Intake Total 689 ml 1200 ml 1200 ml 866 ml Output Total 600 ml 600 ml 1350 ml 715 ml Balance 89 ml 600 ml -150 ml 151 ml Intake Oral 0 ml 250 ml IV Total 689 ml 1200 ml 616 ml Other 1200 ml Output Urine Total 600 ml 450 ml 500 ml 625 ml Drainage Total 150 ml 90 ml Estimated Blood Loss 150 ml 150 ml Other 550 ml # Bowel Movements 0 0 Result Diagram: 07/01/170 07/01/17 0430 Imaging Last Impressions Thoracolumbar Spine 06/30/17 0000 Signed Impressions: Service Date/Time: Friday, June 30, 2017 08:48 - CONCLUSION: Limited images as detailed above. Russel June Jr., MD Chest X-Ray 06/29/17 0000 Signed Impressions: Service Date/Time: Thursday, June 29, 2017 19:55 - CONCLUSION: 1. Subsegmental basilar airspace disease. Previous median sternotomy. Librado Villareal MD Cervical Spine X-Ray 06/27/17 0000 Signed Impressions: Service Date/Time: Tuesday, June 27, 2017 13:31 - CONCLUSION: Intraoperative images. Russel Hong MD Thoracic Spine MRI 06/24/17 0000 Signed Impressions: Service Date/Time: Saturday, June 24, 2017 14:15 - CONCLUSION: Normal examination of the thoracic spine. Marked discogenic edema at the T12-L1 level. There may be some epidural collection at that level defer to the lumbar spine MRI for complete characterization. Ivan Patterson MD Lumbar Spine MRI 06/24/17 0000 Signed Impressions: Service Date/Time: Saturday, June 24, 2017 14:15 - CONCLUSION: 1. Discogenic edema on the T12-L1 level with vertebral body edema. The disc space height is still preserved. It is an unusual pattern for trauma. Discitis is within the differential. 2. Elongated epidural collection beginning at T12- L1 and extending at least 6.7 cm inferiorly likely epidural process such as either hematoma or infection, correlate clinically. Ivan Patterson MD Cervical Spine MRI 06/24/17 0000 Signed Impressions: Service Date/Time: Saturday, June 24, 2017 14:15 - CONCLUSION: 1. Very impressive prevertebral soft tissue swelling and hematoma in the upper cervical spine. I do not see any definite fracture on the IR images in the upper cervical spine. 2. Impressive posterior soft tissue edema and some fullness of the epidural space posterior to the C5-6 level. I do not have access to a non-contrast CT scan if one has been performed or if there is a known fracture. Ivan Patterson MD Objective Remarks awake and alert, oriented x 3, speech clear pupils equal, bilateral periorbital ecchymoses, fading C collar in place no rales regular rhythm abdomen soft, good bowel sounds, tympanitic + coon in place extremities no edema gripped when hands held moves both LE spontaenously- equal Procedures 06/27- Anterior cervical C5-6 interbody fusion; partial C5 and partial C6 corpectomy; anterior C5-6 cervical plate placement; C5-6 interbody cage placement; microsurgical technique 06/30- lumbar stabilization Urinary Catheter: Yes Coon insert reason: Surgical/Invasive Proced Date of Insertion: Jun 26, 2017 A/P Assessment and Plan 76 years old male S/P Anterior cervical C5-6 interbody fusion; partial C5 and partial C6 corpectomy; anterior C5-6 cervical plate placement; C5-6 interbody cage placement- 06/27 S/P T12-L1 laminectomy with evacuation of epidural hematoma 06/30 Neuro surgery ff History of CAD S/P CABG in 2003 - he actually just seen his matrix worker for ff up last week- and everything is stable his last stress test was in 2014- and unremarkable Echo done with EF 60%-- stable from OP office echo we will continue his cardiac meds- ARB, BB, and statins on LOprssor 2.5 mg IV q 6- post op change to Atenolol 25 mg po daily- home regimen ASA 81 mg po daily Continue on Cozaar 50 gm daily Acute post op Anemia give x1 unit RBC with history of CAD H and H in am speech therapy ff- DVT prophylaxis TEDs/SCD Darrion Han MD Jul 01, 2017 13:40
[2017-07-01] MEDS: MAGNESIUM HYDROXIDE SUSP 30 ML CUP PO SCH ×2 (15:00→20:06)
[2017-07-01] MEDS: LACTULOSE SYRUP 20 GM/30 ML CUP PO SCH (15:00)
--- NOTE | 2017-07-01 19:38 | HHI.CCPN ---
Subjective Brief History 76-year-old male fell off the roof was initially transferred to [facility] then transferred to us trauma transfer. Patient sustained significant injuries including Fracture of the anterior plate of C5 and C6 Unstable comminuted fracture of T12-L1 And 12th rib fracture on the left Patient's been placed in ICU appropriate c-collar is applied According to neurosurgery patient will undergo thoracolumbar fusion for this unstable fracture while the C-spine injury will heal on its 24 Hour Review/Hospital Course Patient has been stable since admission to ICU He remains neurologically intact Neurosurgery consult greatly appreciated Patient is scheduled to undergo thoracolumbar fusion by Dr. Jarrett 06/25 neuro intact pain controlled NS plan noted has also epidural hematoma 06/26 intact pain controlled preop by NS for C spine precaution 06/28 pod#1 s/p c spine repair doing well no complaints spinal precautions for unstable chance fracture 06/29 POD#2 s/p c spine repair had episode of delirium overnight-improved in AM continue spinal precautions preop labs OR tomorrow with NS Seroquel qhs 06/30/17 Patient is awake alert but somewhat disoriented better this morning he status post C-spine C5-C6 fixation Bilateral good breath sounds Abdomen soft active bowel sounds Patient undergo repeat CT scan of the neck Patient full neurologically intact Will be able to transfer to floor 07/01/17 Patient doing very well Neurologically he is fully intact Awaiting transfer to the floor Objective Vital Signs Date Time Temp Pulse Resp B/P (MAP) Pulse Ox O2 Delivery O2 Flow Rate FiO2 07/01/17 18:00 88 07/01/17 16:52 97 Nasal Cannula 2.00 07/01/17 16:00 98.2 15 136/64 (88) 06/30/17 22:07 35 Intake and Output 07/01/17 07/01/17 07/01/17 07:59 15:59 23:59 Intake Total 866 ml 400 ml 360 ml Output Total 715 ml 500 ml Balance 151 ml 400 ml -140 ml Result Diagram: 07/01/17 04307/01/17 043 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 Awake alert oriented Neurologically fully intact post cervical and lumbar fusion and decompression Hemodynamic/Cardiac Hemodynamically intact Slightly anemic but at this point does not require PRBC transfusion Pulmonary/Respiratory Bilateral good breath sounds with good inspiratory effort In the face of multiple injuries this patient is at high risk of developing pneumonia or for time being is doing very well and earlier mobilizes the better he will do Abdomen/GI Nutrition Abdomen soft diet well tolerated no problems swallowing Renal/I&O Preserved renal function Urinary Catheter Assessment Date of Insertion: Jun 26, 2017 Assessment and Plan Plan stable postop cspine preop T/L spine for 06/30 pain control DVT prophylaxis spinal precautions speech/swallow study-follow their diet recommendation Attestation Critical care time 38 minutes Transferred to floor when bed available Pramod Larsen MD Jul 01, 2017 19:38
[2017-07-01] MEDS: REMOVE OLD LIDOCAINE PATCH T-DERMAL SCH (20:24)
[2017-07-02 00:10] VITALS: BP 160/85; PULSE 95; RESP 18; TEMP 98.6; O2SAT 94
[2017-07-02] MEDS: ACETAMINOPHEN/HYDROcodone 325 MG/10 MG TAB PO PRN ×2 (00:17→05:00)
[2017-07-02] MEDS: METHOCARBAMOL 500 MG TAB PO SCH ×3 (00:17→17:00)
[2017-07-02 03:22] VITALS: BP_SYST 156; BP_SYST 162; BP_DIAS 76; BP_DIAS 85; PULSE 107; PULSE 89; RESP 17; RESP 18; TEMP 96.7; TEMP 98.5; O2SAT 97; O2SAT 98
[2017-07-02 06:39] LABS: BASOPHIL % 0.1 % (0.0-2.0); EOSINOPHIL # 0.1 TH/MM3 (0-0.4); EOSINOPHIL % 1.4 % (0.0-4.0); HEMATOCRIT 25.9 % (39.0-51.0); HEMO FLAGS DIFF FINAL; LYMPH % 10.8 % (9.0-44.0); MEAN CELL VOLUME 84.1 FL (80.0-100.0); MEAN CORPUSCULAR HEMOGLOBIN 28.1 PG (27.0-34.0); MEAN CORPUSCULAR HGB CONC 33.4 % (32.0-36.0); MONO % 13.6 % (0.0-8.0); NEUT % 74.1 % (16.0-70.0); PLATELET COUNT 173 TH/MM3 (150-450); RED BLOOD COUNT 3.07 MIL/MM3 (4.50-5.90); RED CELL DISTRIBUTION WIDTH 14.5 % (11.6-17.2); WHITE BLOOD COUNT 9.4 TH/MM3 (4.0-11.0)
[2017-07-02 07:00] LABS: BICARBONATE 31.2 MEQ/L (21.0-32.0); POTASSIUM 3.7 MEQ/L (3.5-5.1)
[2017-07-02 08:00] VITALS: BP 174/85; PULSE 101; RESP 17; TEMP 97.7; O2SAT 97
[2017-07-02] MEDS ORDERED: BISACODYL EC 5 MG TABEC PO ONE (08:00)
[2017-07-02] MEDS ORDERED: BISACODYL 10 MG SUPP RECTAL ONE (08:00)
[2017-07-02] MEDS: LIDOCAINE HCL 5% PATCH T-DERMAL SCH (09:00)
[2017-07-02] MEDS: BACITRACIN TOP OINT 15 GM TUBE TOP SCH ×2 (09:00→21:00)
[2017-07-02] MEDS: LACTULOSE SYRUP 20 GM/30 ML CUP PO SCH (09:00)
[2017-07-02] MEDS: SODIUM CHLORIDE 0.9% FLUSH 10 ML FLUSH IV FLUSH SCH ×2 (09:00→21:35)
[2017-07-02] MEDS: ASPIRIN 81 MG CHEW TAB CHEW SCH (10:20)
[2017-07-02] MEDS: LOSARTAN 50 MG TAB PO SCH (10:20)
[2017-07-02] MEDS: FAMOTIDINE 20 MG TAB PO SCH ×2 (10:20→21:34)
[2017-07-02] MEDS: PRAVASTATIN SOD 40 MG TAB PO SCH (10:20)
[2017-07-02] MEDS: ATENOLOL 25 MG TAB PO SCH (10:20)
[2017-07-02] MEDS: POLYETHYLENE GLYCOL 17 GM PKG PO SCH (10:21)
[2017-07-02] MEDS: DOCUSATE SODIUM 50 MG/SENNA 8.6 MG TAB PO SCH ×2 (10:21→21:34)
--- NOTE | 2017-07-02 10:47 | HHI.PR ---
Subjective Subjective Notes PTD: 8 Patient OOB and sitting in a recliner chair. No distress noted. Patient states his pain is, "terrible." Discussed with patient the prospect of him going to rehabilitation at [place], however patient states, "I'm not sure about that." Discussed the benefits of rehabilitation, patient states, "my daughter is coming down here today. I have to think about it." Objective Vitals/I&O Vital Signs Date Time Temp Pulse Resp B/P (MAP) Pulse Ox O2 Delivery O2 Flow Rate FiO2 07/02/17 08:00 97.7 101 17 174/85 (114) 97 07/01/17 21:12 Nasal Cannula 2.00 06/30/17 22:07 35 Labs Laboratory Tests Test 07/02/17 05:50 07/02/17 05:55 Blood Urea Nitrogen 20 Creatinine 0.58 Random Glucose 93 Calcium Level 7.7 Sodium Level 141 Potassium Level 3.7 Chloride Level 105 Carbon Dioxide Level 31.2 Anion Gap 5 Estimat Glomerular Filtration Rate 136 White Blood Count 9.4 Red Blood Count 3.07 Hemoglobin 8.6 Hematocrit 25.9 Mean Corpuscular Volume 84.1 Mean Corpuscular Hemoglobin 28.1 Mean Corpuscular Hemoglobin Concent 33.4 Red Cell Distribution Width 14.5 Platelet Count 173 Mean Platelet Volume 7.5 Neutrophils (%) (Auto) 74.1 Lymphocytes (%) (Auto) 10.8 Monocytes (%) (Auto) 13.6 Eosinophils (%) (Auto) 1.4 Basophils (%) (Auto) 0.1 Neutrophils # (Auto) 7.0 Lymphocytes # (Auto) 1.0 Monocytes # (Auto) 1.3 Eosinophils # (Auto) 0.1 Basophils # (Auto) 0.0 CBC Comment DIFF FINAL Differential Comment Radiology Last 72 hours Impressions Thoracolumbar Spine 06/30/17 0000 Signed Impressions: Service Date/Time: Friday, June 30, 2017 08:48 - CONCLUSION: Limited images as detailed above. Russel June Jr., MD Narrative Exam GENERAL: This is a 76-year-old male. Sitting OOB in a recliner chair. No distress noted. SKIN: Warm and dry. HEAD: Atraumatic. Normocephalic. EYES: PERRLA ENT: No nasal bleeding or discharge. Mucous membranes pink and moist. NECK: [place] J collar in place. Trachea midline. No JVD. CARDIOVASCULAR: Regular rate and rhythm. RESPIRATORY: O2 nasal cannula 2 L. No accessory muscle use. Lungs are clear to auscultation. Breath sounds equal bilaterally. No distress or dyspnea. GASTROINTESTINAL: BS + x 4 quads. Abdomen soft, non-tender, nondistended. MUSCULOSKELETAL: TLSO brace in place. Extremities without cyanosis, or edema. + peripheral pulses x 4 extremities. Warm with good capillary refill and sensation. MAEW. NEUROLOGICAL: Awake and alert. Normal speech and pattern. A/P Problem List: (1) Fall ICD Codes: W19.XXXA - Unspecified fall, initial encounter Status: Acute (2) Fracture of lumbar spine ICD Codes: S32.009A - Unspecified fracture of unspecified lumbar vertebra, initial encounter for closed fracture Status: Acute (3) Cervical spine fracture ICD Codes: S12.9XXA - Fracture of neck, unspecified, initial encounter Status: Acute Discharge Planning [place]: This is a 76-year-old patient who sustained a fall from a roof approximately 8-10 feet. He complains of paresthesia to bilateral upper extremities. No LOC. He was a trauma transfer from [facility]. INJURIES: C5, C6 fxs L1 transverse process fx Unstable T12 and L1 column fxs T10 transverse process fx LEFT rib fx (12) PMHx: [place], CABG (on ASA at home), DM, HTN, HLD Procedures: 06/27: Anterior cervical C5-6 interbody fusion; partial C5 and partial C6 corpectomy; anterior C5-6 cervical plate placement; C5-6 interbody cage placement; microsurgical technique 06/30: Posterolateral T11, T12, L1, L2, and L3 fusion. T11 - L3 pedicle screw fixation. T12 - L2 decompressive laminectomy w/ epidural hematoma evacuation Consults: Neurosurgery. Hospitalists. Rehabilitation medicine. Neuropsych. Case management. Diet: ADA, mechanical soft diet. Tolerating po diet. Encourage good po intake with each meal. Pulmonary: Encourage good pulmonary toileting. IS at bedside and pt encouraged to use. Rationale for use explained to patient, and verbalized understanding. PAIN Management: [place] 10-20 mg q 4h. . Robaxin 500 mg q 8h. Lidoderm patch Behavior: Seroquel 50 HS, Haldol PRN. Activity: OOB with assist. PT and OT ordered. GI prophylaxis: Pepcid 20 mg BID. DC Hawkins catheter. Bowel regimen: Deanna-colace BID. MOM HS. Miralax. Lactulose. Bisacodyl PRN. LBM 06/27. Intensified with bisacodyl P0/UT 1 dose today. DVT prophylaxis: Mechanical VTE with SCDs. Chemical management with Lovenox 30 BID SQ. DC Planning: Case management consulted for assistance with final discharge disposition. Patient has been accepted for admission to [facility]. Patient states he is not sure if he wants to go. He wants to talk to his daughter first. He states she will be abiding today. Patient is clear from a trauma surgery standpoint to transfer to [facility]. Emotional support provided to patient at bedside and plan of care discussed. Discussed with RN at bedside. Discussed pt condition and plan of care with collaborating trauma surgeon. Patient is hemodynamically stable and being managed on the med/surg floor. The trauma team will round each day, and evaluate plan of care on a daily basis. C5, C6 fxs L1 transverse process fx Unstable T12 and L1 column fxs T10 transverse process fx Neurosurgery consulted and assisting in management and care 06/27: Anterior cervical C5-6 interbody fusion; partial C5 and partial C6 corpectomy; anterior C5-6 cervical plate placement; C5-6 interbody cage placement; microsurgical technique 06/30: Posterolateral T11, T12, L1, L2, and L3 fusion. T11 - L3 pedicle screw fixation. T12 - L2 decompressive laminectomy w/ epidural hematoma evacuation [place] J collar at all times TLSO brace when out of bed Pain management PT and OT ordered Encourage out of bed Patient is cleared from neurosurgery to transfer to rehabilitation LEFT rib fx (12) O2 as needed Aggressive pulmonary toileting Pain management PT and OT ordered Encourage out of bed Lovenox for DVT prophylaxis Problem Qualifiers (1) Fall: Qualified Codes: W19.XXXA - Unspecified fall, initial encounter (2) Fracture of lumbar spine: Qualified Codes: S32.019A - Unspecified fracture of first lumbar vertebra, initial encounter for closed fracture (3) Cervical spine fracture: Qualified Codes: S12.401A - Unspecified nondisplaced fracture of fifth cervical vertebra, initial encounter for closed fracture Shanell Austin Jul 02, 2017 10:47
[2017-07-02 12:00] VITALS: BP 164/89; PULSE 83; RESP 17; TEMP 97.7; O2SAT 96
--- NOTE | 2017-07-02 12:09 | HHI.NSPN ---
(Jona Newman) History Chief Complaint: low back discomfort. (Jona Newman) Interval History This is a 76 y/o M who was up on his roof which he states is 8 feet when he thinks he slipped or lost his balance. He states when he fell to the ground he never lost consciousness. He crawled into the house and asked for help. He had neck pain when he was taken to the ER in [facility] and states this is now controlled. He denies any radiculopathy into the UEs at any time. He states he has numbness in the right 1-3rd fingers in the right hand which is chronic. He denies any numbness in the left hand or upper extremities otherwise. He denies any numbness or tingling in his torso or LEs. He currently denies any thoracic or low back pain or any radicular pain into the chest or LEs. He denies any weakness after his fall although currently he is aware of his fractures and is laying flat in bed and not moving. He relates that with the pain medications his neck and low back pain is better but he does experience pain in his neck and mid back area. He has a chronic history of low back pain and usually every 6 months he has exacerbations lasting a month or so. He also complains of chronic numbness in the right median nerve distribution in the upper extremity. 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 06/25/17: Pt complains of low back pain. Neck pain and thoracic spine pain controlled with pain medication. No radiculopathy in UEs or LEs. No paresthesias in UEs or LEs, other than chronic right 1-3rd fingers. 06/26/17. he remains very painful. No focal neurological deficits 06/27/17: Pt awake and alert. States pain controlled. No radiculopathy in UEs or LEs. Paresthesias in right 1-3 fingers chronic. Pt remains on bedrest with [place] cervical collar in place. 06/28/17: Pt awake. Mild incisional discomfort. No radiculopathy in UEs. Numbness in 1-3 fingers on right a little more prominent. No radiculopathy in chest or LEs. Back pain controlled with medication. 06/29/17: Pt awake. Had episodes of confusion last night requiring Haldol per RN. Pt complains of soreness all over. No radiculopathy in UEs or LEs. Cervical collar in place. Pt flat in bed on log roll precautions. 07/01/17: Pt awake and alert. Complains of soreness but pain controlled. No radiculopathy in UEs or LEs. No paresthesias in extremities. Pt sitting up in bed with cervical collar and TLSO brace on. 07/02/17: Pt awake. Periods of confusion. Complains of soreness all over. Cervical collar intact. (Jona Newman) Review of Systems General: Negative for: fever, chills, insomnia Respiratory: Negative for: shortness of breath, cough, sputum Cardiovascular: Negative for: chest pain Gastrointestinal: Negative for: nausea, vomitting, diarrhea, constipation ( Jona Newman) Exam Results Vital Signs Date Time Temp Pulse Resp B/P (MAP) Pulse Ox O2 Delivery O2 Flow Rate FiO2 07/02/17 08:00 97.7 101 17 174/85 (114) 97 07/01/17 21:12 Nasal Cannula 2.00 06/30/17 22:07 35 Intake and Output 07/02/17 07/02/17 07/03/17 08:00 16:00 00:00 Intake Total 480 ml Output Total 420 ml Balance 60 ml (Jona Newman S. PA) Physical Examination General: Pt resting in bed in NAD. Vitals are stable. Eyes: Pupils equal, sclera anicteric. Resp: CTA bilaterally Heart: NSR no murmurs Abd: Soft positive bs Skin: Minor abrasions and left periorbital ecchymosis around the left eye. SCDs in place. Anterior cervical incision clean and dry. No signs of infection or complication. Pt log rolled incision clean and dry without signs of infection. New bandages placed. LOVELY drain removed and steristrip placed at exit site. Muscle: [place] cervical collar in place. Moves all 4 extremities with good strength 5/5 in LEs. 4+ strength in UEs. Neuro: Pt awake and alert. Follows simple commands. Speech clear and appropriate. Sensation intact in extremities except for chronic 1-3 finger numbness. (Jona Newman) Lab, Micro, Other Results Last Impressions Thoracolumbar Spine 06/30/17 0000 Signed Impressions: Service Date/Time: Friday, June 30, 2017 08:48 - CONCLUSION: Limited images as detailed above. Russel June Jr., MD Chest X-Ray 06/29/17 0000 Signed Impressions: Service Date/Time: Thursday, June 29, 2017 19:55 - CONCLUSION: 1. Subsegmental basilar airspace disease. Previous median sternotomy. Librado Villareal MD Cervical Spine X-Ray 06/27/17 0000 Signed Impressions: Service Date/Time: Tuesday, June 27, 2017 13:31 - CONCLUSION: Intraoperative images. Russel Hong MD Thoracic Spine MRI 06/24/17 0000 Signed Impressions: Service Date/Time: Saturday, June 24, 2017 14:15 - CONCLUSION: Normal examination of the thoracic spine. Marked discogenic edema at the T12-L1 level. There may be some epidural collection at that level defer to the lumbar spine MRI for complete characterization. Ivan Patterson MD Lumbar Spine MRI 06/24/17 0000 Signed Impressions: Service Date/Time: Saturday, June 24, 2017 14:15 - CONCLUSION: 1. Discogenic edema on the T12-L1 level with vertebral body edema. The disc space height is still preserved. It is an unusual pattern for trauma. Discitis is within the differential. 2. Elongated epidural collection beginning at T12- L1 and extending at least 6.7 cm inferiorly likely epidural process such as either hematoma or infection, correlate clinically. Ivan Patterson MD Cervical Spine MRI 06/24/17 0000 Signed Impressions: Service Date/Time: Saturday, June 24, 2017 14:15 - CONCLUSION: 1. Very impressive prevertebral soft tissue swelling and hematoma in the upper cervical spine. I do not see any definite fracture on the IR images in the upper cervical spine. 2. Impressive posterior soft tissue edema and some fullness of the epidural space posterior to the C5-6 level. I do not have access to a non-contrast CT scan if one has been performed or if there is a known fracture. Ivan Patterson MD Laboratory Tests Test 07/02/17 05:50 07/02/17 05:55 Blood Urea Nitrogen 20 MG/DL Creatinine 0.58 MG/DL Random Glucose 93 MG/DL Calcium Level 7.7 MG/DL Sodium Level 141 MEQ/L Potassium Level 3.7 MEQ/L Chloride Level 105 MEQ/L Carbon Dioxide Level 31.2 MEQ/L Anion Gap 5 MEQ/L Estimat Glomerular Filtration Rate 136 ML/MIN White Blood Count 9.4 TH/MM3 Red Blood Count 3.07 MIL/MM3 Hemoglobin 8.6 GM/DL Hematocrit 25.9 % Mean Corpuscular Volume 84.1 FL Mean Corpuscular Hemoglobin 28.1 PG Mean Corpuscular Hemoglobin Concent 33.4 % Red Cell Distribution Width 14.5 % Platelet Count 173 TH/MM3 Mean Platelet Volume 7.5 FL Neutrophils (%) (Auto) 74.1 % Lymphocytes (%) (Auto) 10.8 % Monocytes (%) (Auto) 13.6 % Eosinophils (%) (Auto) 1.4 % Basophils (%) (Auto) 0.1 % Neutrophils # (Auto) 7.0 TH/MM3 Lymphocytes # (Auto) 1.0 TH/MM3 Monocytes # (Auto) 1.3 TH/MM3 Eosinophils # (Auto) 0.1 TH/MM3 Basophils # (Auto) 0.0 TH/MM3 CBC Comment DIFF FINAL Differential Comment (Jona Newman) Medical Decision Making Impression and Plan A: 76 y/o M s/p fall from roof pt estimates 8-10 feet without LOC. C5-6 vertebral body fractures involving the anterior column with preserved facet consistent with an ankylosing spondylitis break. There is also a nondisplaced C7 vertebral body anterior fracture. Anterior cervical C5-6 interbody fusion; partial C5 and partial C6 corpectomy; anterior C5-6 cervical plate placement; C5-6 interbody cage placement; microsurgical technique 2. T12/L1 chance type fracture involving all 3 columns through the inferior aspect of T12 and superior aspect of the L1 vertebral body and facet consistent with an ankylosing spondylitis break, s/p Posterolateral T11, T12, L1, L2, and L3 fusion; T11-L3 pedicle screw fixation; T12-L2 decompressive laminectomy with epidural hematoma evacuation; harvesting of left iliac crest autograft; Microsurgical technique on 06/30/17 3. Nasal bone fracture. 4. Rib fractures. P: Pt will maintain cervical collar at all times. TLSO brace on prior to sitting, standing, or walking. Continue with GI prophylaxis with Protonix Continue with SCDs. Rehab efforts/Placement. (Jona Newman) Attending Statement The exam, history, and the medical decision-making described in the above note were completed with the assistance of the mid-level provider. I reviewed and agree with the findings presented. I attest that I had a [id number] encounter with the patient on the same day, and personally performed and documented my assessment and findings in the medical record. (Mckinley Jarrett MD) Jona Newman Jul 02, 2017 12:09 Mckinley Jarrett MD Jul 02, 2017 12:35
[2017-07-02] MEDS ORDERED: MAGN30S PO (13:24)
[2017-07-02] MEDS ORDERED: CLON.1 PO (13:24)
[2017-07-02] MEDS ORDERED: ASPI81 CHEW (13:24)
[2017-07-02] MEDS ORDERED: POLY17S PO (13:24)
[2017-07-02] MEDS ORDERED: BISA10R RECTAL (13:24)
[2017-07-02] MEDS ORDERED: COZA50TA PO (13:24)
[2017-07-02] MEDS ORDERED: HYDR-3583 PO (13:24)
[2017-07-02] MEDS ORDERED: PERI PO (13:24)
[2017-07-02] MEDS ORDERED: ENOX30P SQ (13:24)
[2017-07-02] MEDS ORDERED: METH500T3 PO (13:24)
[2017-07-02] MEDS ORDERED: NOVORP2 SQ (13:24)
[2017-07-02] MEDS ORDERED: Lactulose Liq PO (13:24)
[2017-07-02] MEDS ORDERED: MAG-LIQ PO (13:24)
[2017-07-02] MEDS ORDERED: FAMO20TA2 PO (13:24)
[2017-07-02 15:20] VITALS: BP 116/58; PULSE 76; RESP 16; TEMP 96.5; O2SAT 97
--- NOTE | 2017-07-02 18:36 | HHI.PR ---
Subjective Remarks Patient reports is feeling okay except for pain which is more or less controlled with the pain medications. Objective Vitals Vital Signs Date Time Temp Pulse Resp B/P (MAP) Pulse Ox O2 Delivery O2 Flow Rate FiO2 07/02/17 15:20 96.5 76 16 116/58 (77) 97 07/02/17 12:00 97.7 83 17 164/89 (114) 96 07/02/17 10:15 Nasal Cannula 2.00 07/02/17 08:00 97.7 101 17 174/85 (114) 97 07/02/17 03:22 96.7 107 18 162/85 (110) 97 07/02/17 00:10 98.6 95 18 160/85 (110) 94 07/01/17 21:37 96.3 106 19 170/87 (114) 97 07/01/17 21:12 96 Nasal Cannula 2.00 07/01/17 20:00 98 07/01/17 19:00 94 Nasal Cannula 3.00 I/O 07/01/17 07/01/17 07/01/17 07/02/17 07/02/17 07/02/17 07:00 15:00 23:00 07:00 15:00 23:00 Intake Total 866 ml 400 ml 720 ml 480 ml 480 ml Output Total 715 ml 930 ml 420 ml 400 ml Balance 151 ml 400 ml -210 ml 60 ml 80 ml Intake Oral 250 ml 720 ml 480 ml 480 ml IV Total 616 ml 400 ml Output Urine Total 625 ml 850 ml 400 ml 400 ml Drainage Total 90 ml 80 ml 20 ml # Bowel Movements 0 0 0 1 Result Diagram: 07/02/17 0555 07/02/17 0550 Objective Remarks GENERAL: Patient is in a TLSO brace. CARDIOVASCULAR: Normal rate and regular rhythm without murmurs, gallops, or rubs. RESPIRATORY: Good respiratory efforts. Breath sounds equal and clear to auscultation bilaterally. GASTROINTESTINAL: Abdomen soft, non-tender, non-distended. Normal active bowel sounds MUSCULOSKELETAL: Extremities without cyanosis, or edema. NEURO: Alert & Oriented x4 to person, place, time, situation. Moves all ext x4 PSYCH: Appropriate mood and affect. Procedures 06/27- Anterior cervical C5-6 interbody fusion; partial C5 and partial C6 corpectomy; anterior C5-6 cervical plate placement; C5-6 interbody cage placement; microsurgical technique 06/30- lumbar stabilization Date of Insertion: Jun 26, 2017 A/P Assessment and Plan 76 years old male who fell off a roof and sustained cervical, lumbar, and rib fractures S/P Anterior cervical C5-6 interbody fusion; partial C5 and partial C6 corpectomy; anterior C5-6 cervical plate placement; C5-6 interbody cage placement- 06/27 S/P T12-L1 laminectomy with evacuation of epidural hematoma 06/30 Neurosurgery following. Continue TLSO brace. Pain management. PT/OT History of CAD S/P CABG in 2003 -Recently saw vat washer a week prior-and everything was reportedly stable his last stress test was in 2014- and unremarkable Echo done with EF 60%-- stable from OP office echo we will continue his cardiac meds- ARB, BB, and statins on LOprssor 2.5 mg IV q 6- post op change to Atenolol 25 mg po daily- home regimen ASA 81 mg po daily Continue on Cozaar 50 gm daily Acute post op Anemia Status post unit RBC with history of CAD H&H is stable DVT prophylaxis TEDs/SCD Discharge Planning Per primary team Bharti Palma MD Jul 02, 2017 18:36
[2017-07-02 20:55] VITALS: BP 144/67; PULSE 80; RESP 17; TEMP 98; O2SAT 96
[2017-07-02] MEDS: MAGNESIUM HYDROXIDE SUSP 30 ML CUP PO SCH (21:00)
[2017-07-02] MEDS: REMOVE OLD LIDOCAINE PATCH T-DERMAL SCH (21:00)
[2017-07-02] MEDS: ENOXAPARIN SODIUM 30 MG/0.3 ML SYRINGE SQ SCH (21:34)
[2017-07-03 00:35] VITALS: BP 130/63; PULSE 85; RESP 17; TEMP 97.6; O2SAT 96
[2017-07-03] MEDS: METHOCARBAMOL 500 MG TAB PO SCH ×2 (00:38→08:52)
[2017-07-03 04:43] VITALS: BP 138/70; PULSE 84; RESP 17; TEMP 98.7; O2SAT 96
--- NOTE | 2017-07-03 08:34 | HHI.PR ---
Neuropsych Emotional Emotional: Mild: Irritable/Angry/Frustrate Behavior Behavior: Intact: Coping/Acceptance, Motivation, Impulsive/Agitated, Mild: Cooperative w/ Treatment, Frustration Tolerance/Elsa Cognitive Cognitive: Intact: Cognitive, Attention/Concentration, Confused/Orientation, Insight/Awareness, Judgement/Problem-Solving, Memory Psychosocial Psychosocial: Intact: Psychosocial, Family/Other Adjustment, Realistic Expectation, Unable to Asses: Self-Esteem/Confidence Progress Notes/Response to Tx Contents of Sessions: Adjustment Time with Patient: 15 minutes Premorbid psychological status Premorbid Cognitive, Emotional and Behavioral Status: Stable. The patient has high school education and a solid work history prior to this injury. The patient has no prior psychiatric difficulties, as described above. Substance abuse history is unremarkable. Behavioral Reactions of Patient and Family/Support System: Stable. The patient s family is experiencing ongoing issues of adjustment given the nature of the injury, and this aspect of recovery will require ongoing monitoring. Emotional/Behavioral Status of Patient and Family/Support System: Stable. Pertinent issues, if appropriate to this patients clinical care, are described in detail above. Maximizing acute care outcome It is recommended that the patient be monitored for potential neurocognitive issues as the medical condition evolves. This patients neuropathological challenges may limit his rehabilitation potential going forward, and these challenges will require specialized therapeutic skills to maximize outcome. Additionally, the patients family is experiencing ongoing issues of adjustment given the traumatic nature of the injury, and they may benefit from ongoing psychological assistance. At this point in the recovery process, the patient does have cognitive capacity as the patient is able to understand a situation and its likely consequences, and he is able to manipulate information rationally. Cognitive capacity will be assessed throughout the recovery process. Anticipated Problems Ongoing areas of concern will include potential neurocognitive issues, which would be expected to improve with time and treatment. Presently, the patient is following commands. Treatment Plan This clinician will continue to follow with you throughout the course of this patients acute care treatment, and I will be available to meet with the patient s family/support system to facilitate their understanding and the ongoing care of their family member. The goals of neuropsychological intervention shall be both educational and supportive to the family/support system as is deemed clinically appropriate. Disinhibition Score: 14.00 Aggression Score: 14.00 Lability Score: 14.00 Agitated Behavior Total Score: 14 Impression 76 year old man s/p fall from roof with vertebral fractures at C5-6 and T12-L1. No indication of concussive type injury. Diagnosis: (1) Cervical spine fracture Status: Acute (2) Fracture of lumbar spine Status: Acute Progress Note Narrative Ongoing follow-up of patient seen during daily trauma rounds. This is day 9 post injury. The patient continues to complain of pain but otherwise is neurobehaviorally intact. He is questioning continuing convalescence at [facility]. I will continue to follow. Problem Qualifiers (1) Cervical spine fracture: Qualified Codes: S12.401A - Unspecified nondisplaced fracture of fifth cervical vertebra, initial encounter for closed fracture (2) Fracture of lumbar spine: Qualified Codes: S32.019A - Unspecified fracture of first lumbar vertebra, initial encounter for closed fracture Catracho Lemon PhD Jul 03, 2017 8:34 am
[2017-07-03] MEDS: FAMOTIDINE 20 MG TAB PO SCH (08:52)
[2017-07-03] MEDS: LOSARTAN 50 MG TAB PO SCH (08:52)
[2017-07-03] MEDS: PRAVASTATIN SOD 40 MG TAB PO SCH (08:52)
[2017-07-03] MEDS: ENOXAPARIN SODIUM 30 MG/0.3 ML SYRINGE SQ SCH (08:52)
[2017-07-03] MEDS: SODIUM CHLORIDE 0.9% FLUSH 10 ML FLUSH IV FLUSH SCH (08:52)
[2017-07-03] MEDS: ASPIRIN 81 MG CHEW TAB CHEW SCH (08:52)
[2017-07-03] MEDS: ATENOLOL 25 MG TAB PO SCH (08:53)
[2017-07-03] MEDS: DOCUSATE SODIUM 50 MG/SENNA 8.6 MG TAB PO SCH (08:53)
[2017-07-03] MEDS: POLYETHYLENE GLYCOL 17 GM PKG PO SCH (08:53)
[2017-07-03] MEDS: LACTULOSE SYRUP 20 GM/30 ML CUP PO SCH (08:53)
[2017-07-03] MEDS: BACITRACIN TOP OINT 15 GM TUBE TOP SCH (08:54)
[2017-07-03] MEDS: LIDOCAINE HCL 5% PATCH T-DERMAL SCH ×2 (08:56→09:00)
--- NOTE | 2017-07-03 09:45 | HHI.NSPN ---
History Chief Complaint: low back discomfort. Interval History This is a 76 y/o M who was up on his roof which he states is 8 feet when he thinks he slipped or lost his balance. He states when he fell to the ground he never lost consciousness. He crawled into the house and asked for help. He had neck pain when he was taken to the ER in [facility] and states this is now controlled. He denies any radiculopathy into the UEs at any time. He states he has numbness in the right 1-3rd fingers in the right hand which is chronic. He denies any numbness in the left hand or upper extremities otherwise. He denies any numbness or tingling in his torso or LEs. He currently denies any thoracic or low back pain or any radicular pain into the chest or LEs. He denies any weakness after his fall although currently he is aware of his fractures and is laying flat in bed and not moving. He relates that with the pain medications his neck and low back pain is better but he does experience pain in his neck and mid back area. He has a chronic history of low back pain and usually every 6 months he has exacerbations lasting a month or so. He also complains of chronic numbness in the right median nerve distribution in the upper extremity. 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 06/25/17: Pt complains of low back pain. Neck pain and thoracic spine pain controlled with pain medication. No radiculopathy in UEs or LEs. No paresthesias in UEs or LEs, other than chronic right 1-3rd fingers. 06/26/17. he remains very painful. No focal neurological deficits 06/27/17: Pt awake and alert. States pain controlled. No radiculopathy in UEs or LEs. Paresthesias in right 1-3 fingers chronic. Pt remains on bedrest with [place] cervical collar in place. 06/28/17: Pt awake. Mild incisional discomfort. No radiculopathy in UEs. Numbness in 1-3 fingers on right a little more prominent. No radiculopathy in chest or LEs. Back pain controlled with medication. 06/29/17: Pt awake. Had episodes of confusion last night requiring Haldol per RN. Pt complains of soreness all over. No radiculopathy in UEs or LEs. Cervical collar in place. Pt flat in bed on log roll precautions. 07/01/17: Pt awake and alert. Complains of soreness but pain controlled. No radiculopathy in UEs or LEs. No paresthesias in extremities. Pt sitting up in bed with cervical collar and TLSO brace on. 07/02/17: Pt awake. Periods of confusion. Complains of soreness all over. Cervical collar intact. 07/03/17: Pt awake and more alert today. Sitting up in chair eating breakfast. States some discomfort from the brace but denies any pain radiating into UEs or LEs. No paresthesias in extremities. Review of Systems General: Negative for: fever, chills, insomnia Respiratory: Negative for: shortness of breath, cough, sputum Cardiovascular: Negative for: chest pain Gastrointestinal: Negative for: nausea, vomitting, diarrhea, constipation Exam Results Vital Signs Date Time Temp Pulse Resp B/P (MAP) Pulse Ox O2 Delivery O2 Flow Rate FiO2 07/03/17 08:57 Nasal Cannula 3.00 07/03/17 04:43 98.7 84 17 138/70 (92) 96 06/30/17 22:07 35 Intake and Output 07/03/17 07/03/17 07/04/17 08:00 16:00 00:00 Intake Total 120 ml Output Total 450 ml Balance -330 ml Physical Examination General: Pt sitting up in chair eating breakfast with TLSO brace on in NAD. Vitals are stable. Eyes: Pupils equal, sclera anicteric. Resp: CTA bilaterally Heart: NSR no murmurs Abd: Soft positive bs Skin: Minor abrasions and left periorbital ecchymosis around the left eye. SCDs in place. Anterior cervical incision clean and dry. No signs of infection or complication. Muscle: [place] cervical collar in place. Moves all 4 extremities with good strength 5/5 in LEs. 4+ strength in UEs. Neuro: Pt awake and alert. Follows simple commands. Speech clear and appropriate. Sensation intact in extremities except for chronic 1-3 finger numbness. Lab, Micro, Other Results Last Impressions Thoracolumbar Spine 06/30/17 Signed Impressions: Service Date/Time: Friday, June 30, 2017 08:48 - CONCLUSION: Limited images as detailed above. Russel June Jr., MD Chest X-Ray 06/29/17 Signed Impressions: Service Date/Time: Thursday, June 29, 2017 19:55 - CONCLUSION: 1. Subsegmental basilar airspace disease. Previous median sternotomy. Librado Villareal MD Cervical Spine X-Ray 06/27/17 Signed Impressions: Service Date/Time: Tuesday, June 27, 2017 13:31 - CONCLUSION: Intraoperative images. Russel Hong MD Thoracic Spine MRI 06/24/17 0000 Signed Impressions: Service Date/Time: Saturday, June 24, 2017 14:15 - CONCLUSION: Normal examination of the thoracic spine. Marked discogenic edema at the T12-L1 level. There may be some epidural collection at that level defer to the lumbar spine MRI for complete characterization. Ivan Patterson MD Lumbar Spine MRI 06/24/17 0000 Signed Impressions: Service Date/Time: Saturday, June 24, 2017 14:15 - CONCLUSION: 1. Discogenic edema on the T12-L1 level with vertebral body edema. The disc space height is still preserved. It is an unusual pattern for trauma. Discitis is within the differential. 2. Elongated epidural collection beginning at T12- L1 and extending at least 6.7 cm inferiorly likely epidural process such as either hematoma or infection, correlate clinically. Ivan Patterson MD Cervical Spine MRI 06/24/17 0000 Signed Impressions: Service Date/Time: Saturday, June 24, 2017 14:15 - CONCLUSION: 1. Very impressive prevertebral soft tissue swelling and hematoma in the upper cervical spine. I do not see any definite fracture on the IR images in the upper cervical spine. 2. Impressive posterior soft tissue edema and some fullness of the epidural space posterior to the C5-6 level. I do not have access to a non-contrast CT scan if one has been performed or if there is a known fracture. Ivan Patterson MD Medical Decision Making Impression and Plan A: 76 y/o M s/p fall from roof pt estimates 8-10 feet without LOC. C5-6 vertebral body fractures involving the anterior column with preserved facet consistent with an ankylosing spondylitis break. There is also a nondisplaced C7 vertebral body anterior fracture. Anterior cervical C5-6 interbody fusion; partial C5 and partial C6 corpectomy; anterior C5-6 cervical plate placement; C5-6 interbody cage placement; microsurgical technique 2. T12/L1 chance type fracture involving all 3 columns through the inferior aspect of T12 and superior aspect of the L1 vertebral body and facet consistent with an ankylosing spondylitis break, s/p Posterolateral T11, T12, L1, L2, and L3 fusion; T11-L3 pedicle screw fixation; T12-L2 decompressive laminectomy with epidural hematoma evacuation; harvesting of left iliac crest autograft; Microsurgical technique on 06/30/17 3. Nasal bone fracture. 4. Rib fractures. P: Pt will maintain cervical collar at all times. TLSO brace on prior to sitting, standing, or walking. Continue with GI prophylaxis with Protonix Continue with SCDs. Rehab efforts/Placement. Jona Newman Jul 03, 2017 9:45 am
[2017-07-03 11:50] VITALS: BP 136/61; PULSE 73; RESP 18; TEMP 97.2; O2SAT 96
--- NOTE | 2017-07-03 14:29 | HHI.DS ---
Discharge Summary Admission Date Jun 24, 2017 at 00:27 Discharge Date: Jul 03, 2017 Admitting Diagnosis CSpine Fx; L Spine Fx; Rib Fracutre (1) Fall ICD Codes: W19.XXXA - Unspecified fall, initial encounter Diagnosis: Principal Status: Acute (2) Fracture of lumbar spine ICD Codes: S32.009A - Unspecified fracture of unspecified lumbar vertebra, initial encounter for closed fracture Diagnosis: Principal Status: Acute (3) Cervical spine fracture ICD Codes: S12.9XXA - Fracture of neck, unspecified, initial encounter Diagnosis: Principal Status: Acute Brief History Fall from a roof. CBC/BMP: 07/02/17 0555 07/02/17 0550 Significant Findings Laboratory Tests Test 06/30/17 15:21 07/01/17 04:30 07/02/17 05:50 07/02/17 05:55 Red Blood Count 3.33 MIL/MM3 (4.50-5.90) 3.14 MIL/MM3 (4.50-5.90) 3.07 MIL/MM3 (4.50-5.90) Hemoglobin 9.4 GM/DL (13.0-17.0) 8.8 GM/DL (13.0-17.0) 8.6 GM/DL (13.0-17.0) Hematocrit 28.1 % (39.0-51.0) 26.2 % (39.0-51.0) 25.9 % (39.0-51.0) Blood Urea Nitrogen 26 MG/DL (7-18) 24 MG/DL (7-18) 20 MG/DL (7-18) Random Glucose 116 MG/DL (74-106) Total Protein 5.0 GM/DL (6.4-8.2) Calcium Level 7.3 MG/DL (8.5-10.1) 7.6 MG/DL (8.5-10.1) 7.7 MG/DL (8.5-10.1) White Blood Count 12.0 TH/MM3 (4.0-11.0) Neutrophils (%) (Auto) 77.2 % (16.0-70.0) 74.1 % (16.0-70.0) Lymphocytes (%) (Auto) 8.8 % (9.0-44.0) Monocytes (%) (Auto) 13.9 % (0.0-8.0) 13.6 % (0.0-8.0) Neutrophils # (Auto) 9.3 TH/MM3 (1.8-7.7) Monocytes # (Auto) 1.7 TH/MM3 (0-0.9) 1.3 TH/MM3 (0-0.9) Creatinine 0.56 MG/DL (0.60-1.30) 0.58 MG/DL (0.60-1.30) Imaging Last Impressions Thoracolumbar Spine 06/30/17 0000 Signed Impressions: Service Date/Time: Friday, June 30, 2017 08:48 - CONCLUSION: Limited images as detailed above. Russel June Jr., MD Chest X-Ray 06/29/17 0000 Signed Impressions: Service Date/Time: Thursday, June 29, 2017 19:55 - CONCLUSION: 1. Subsegmental basilar airspace disease. Previous median sternotomy. Librado Villareal MD Cervical Spine X-Ray 06/27/17 0000 Signed Impressions: Service Date/Time: Tuesday, June 27, 2017 13:31 - CONCLUSION: Intraoperative images. Russel Hong MD Thoracic Spine MRI 06/24/17 0000 Signed Impressions: Service Date/Time: Saturday, June 24, 2017 14:15 - CONCLUSION: Normal examination of the thoracic spine. Marked discogenic edema at the T12-L1 level. There may be some epidural collection at that level defer to the lumbar spine MRI for complete characterization. Ivan Patterson MD Lumbar Spine MRI 06/24/17 0000 Signed Impressions: Service Date/Time: Saturday, June 24, 2017 14:15 - CONCLUSION: 1. Discogenic edema on the T12-L1 level with vertebral body edema. The disc space height is still preserved. It is an unusual pattern for trauma. Discitis is within the differential. 2. Elongated epidural collection beginning at T12- L1 and extending at least 6.7 cm inferiorly likely epidural process such as either hematoma or infection, correlate clinically. Ivan Patterson MD Cervical Spine MRI 06/24/17 0000 Signed Impressions: Service Date/Time: Saturday, June 24, 2017 14:15 - CONCLUSION: 1. Very impressive prevertebral soft tissue swelling and hematoma in the upper cervical spine. I do not see any definite fracture on the IR images in the upper cervical spine. 2. Impressive posterior soft tissue edema and some fullness of the epidural space posterior to the C5-6 level. I do not have access to a non-contrast CT scan if one has been performed or if there is a known fracture. Ivan Patterson MD PE at Discharge GENERAL: This is a 76-year-old male. Sitting OOB in a recliner chair. No distress noted. SKIN: Warm and dry. HEAD: Atraumatic. Normocephalic. EYES: PERRLA ENT: No nasal bleeding or discharge. Mucous membranes pink and moist. NECK: [place] J collar in place. Trachea midline. No JVD. CARDIOVASCULAR: Regular rate and rhythm. RESPIRATORY: O2 nasal cannula 2 L. No accessory muscle use. Lungs are clear to auscultation. Breath sounds equal bilaterally. No distress or dyspnea. GASTROINTESTINAL: BS + x 4 quads. Abdomen soft, non-tender, nondistended. MUSCULOSKELETAL: TLSO brace in place. Extremities without cyanosis, or edema. + peripheral pulses x 4 extremities. Warm with good capillary refill and sensation. MAEW. NEUROLOGICAL: Awake and alert. Normal speech and pattern. Hospital Course [place]: This is a 76-year-old patient who sustained a fall from a roof approximately 8-10 feet. He complains of paresthesia to bilateral upper extremities. No LOC. He was a trauma transfer from [facility]. 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 T11 - L3 pedicle screw fixation. T12 - L2 decompressive laminectomy w/ epidural hematoma evacuation Consults: Neurosurgery. Hospitalists. Rehabilitation medicine. Neuropsych. Case management. The patient is now agreeable to rehabilitation. The patient is now tolerating a po diet. Eating and drinking well. Pain is being managed well with PO pain medications, all hospital medications will continue at [facility]. Pt is having regular bowel movements, and have recommended to patient to continue with stool softeners while taking narcotic pain medications to prevent constipation. Pt has been participating in PT and OT while admitted at [facility] and has been ambulating with their assistance and independently . PT and OT will continue at [facility]. All follow up appointments have been provided and discussed with the patient. It is recommended that the patient keeps all his follow up appointments for continued recovery. Patient's condition and plan of care discussed with collaborating trauma surgeon. He is agreeable to plan for discharge today. Therefore, the patient is stable to be safely discharged to [facility] from a trauma surgery standpoint. Thank you for allowing us to participate in his care. We wish Eduardo the best in his recovery. C5, C6 fxs L1 transverse process fx Unstable T12 and L1 column fxs T10 transverse process fx Neurosurgery consulted and assisting in management and care 06/27: Anterior cervical C5-6 interbody fusion; partial C5 and partial C6 corpectomy; anterior C5-6 cervical plate placement; C5-6 interbody cage placement; microsurgical technique 06/30: Posterolateral T11, T12, L1, L2, and L3 fusion. T11 - L3 pedicle screw fixation. T12 - L2 decompressive laminectomy w/ epidural hematoma evacuation [place] J collar at all times TLSO brace when out of bed Pain management PT and OT ordered [facility] out of bed Patient is cleared from neurosurgery to transfer to rehabilitation LEFT rib fx (12) O2 as needed Aggressive pulmonary toileting Pain management PT and OT ordered [facility] out of bed Lovenox for DVT prophylaxis Pt Condition on Discharge: Stable Discharge Disposition: Rehab Inpatient Discharge Instructions DIET: Follow Instructions for: Diabetic Diet, Soft Diet Additional Diet Instructions: Mechanical soft Activities you can perform: Regular-No Restrictions Activities to Avoid: Driving for 24 hrs, Concussion Sports, Contact Sports, Lifting/Bending, Strenuous Activity Other Activity Instructions: [place] J collar TLSO brace. Shanell Austin Jul 03, 2017 14:29
--- NOTE | 2017-07-04 08:40 | PD.NP.DS ---
Discharge Summary Reason for Referral: The patient is a 76 year old unknown handed male status post traumatic injury sustained on 06/23/2017. He fell from a single story roof. He sustained C5-6 fractures, T12 -L1 fracture, although head CT was within normal limits, and he reported no concussive symptoms. He is referred for baseline neurobehavioral status examination per trauma protocol to assess cognitive, behavioral and emotional aspects of the injury and to provide treatment recommendations. He improved significantly and was discharged to [facility] for comprehensive inpatient rehabilitation. Past Medical History: Please refer to the patient's history and physical for information concerning the patient's past medical, surgical, and psychiatric histories. Education/Learning Hx: The patient completed high school years of education. There is no report of learning difficulties, grade repetitions or behavioral difficulties. The patient has a solid work history and was retired at the time of the accident. The patient is . The patient lives in [place], [place]. Premorbid Cognitive, Emotional and Behavioral Status: Stable. The patient has high school education and a solid work history prior to this injury. The patient has no prior psychiatric difficulties, as described above. Substance abuse history is unremarkable. Behavioral Reactions of Patient and Family/Support System: Stable. The patient s family is experiencing ongoing issues of adjustment given the nature of the injury, and this aspect of recovery will require ongoing monitoring. Emotional/Behavioral Status of Patient and Family/Support System: Stable. Pertinent issues, if appropriate to this patients clinical care, are described in detail above. Treatment Interventions: During the course of their acute care stay, this patient and their family/ support system were provided information concerning the neuropsychological aspects of the injury, education regarding course of recovery, and psychological support in the form of counseling with the person served and the family/support system as documented in the neuropsychology service progress notes, as deemed clinically appropriate. Current, Cognitive, Emotional and Behavioral Status: Stable. This patient has experienced a severe injury, and will be adjusting to significant cognitive, emotional and behavioral challenges going forward. Impression at Discharge: The cognitive and behavioral status of this patient meets criteria for: Returned to baseline state. The above listed diagnoses are supported by the following clinical criteria: NA. Status of Family/Support System Adjustment: Stable. The patients family/ support system will experience ongoing issues of adjustment given the nature of the injury, and this aspect of the patients recovery will require ongoing monitoring. Post Acute Recommendations: It is recommended that the patient continue to be monitored for emotional difficulties as they continue to be early in their course of recovery. Thank you for the opportunity to assist in this patients care. Catracho Lemon, Ph.D., ABPP Board Certified in Clinical Neuropsychology [place] [employer] [place] Licensed Psychologist #[id number] Catracho Lemon PhD Jul 04, 2017 8:40 am
== END 2017-07-03 12:09 | DRG 459 ==
LOC: NEPE 23:37 → NEDA 06-24 00:27 → N03A 06-24 01:55 → N06A 07-01 21:18
PROVIDERS: ADMIT Surgery; ATTEND Surgery
PROC: 0RT30ZZ Resection of Cervical Vertebral Disc, Open Approach (ICD-10-PCS; 2017-06-27)
PROC: 4A10X4G Monitoring of Central Nervous Electrical Activity, Intraoperative, External Approach (ICD-10-PCS; 2017-06-27)
PROC: 0RG10A0 Fusion of Cervical Vertebral Joint with Interbody Fusion Device, Anterior Approach, Anterior Column, Open Approach (ICD-10-PCS; principal; 2017-06-27 12:40)
PROC: 0RG60AJ Fusion of Thoracic Vertebral Joint with Interbody Fusion Device, Posterior Approach, Anterior Column, Open Approach (ICD-10-PCS; 2017-06-30)
PROC: 0RGA0AJ Fusion of Thoracolumbar Vertebral Joint with Interbody Fusion Device, Posterior Approach, Anterior Column, Open Approach (ICD-10-PCS; 2017-06-30)
PROC: 0QB30ZZ Excision of Left Pelvic Bone, Open Approach (ICD-10-PCS; 2017-06-30)
PROC: 0SG10AJ Fusion of 2 or more Lumbar Vertebral Joints with Interbody Fusion Device, Posterior Approach, Anterior Column, Open Approach (ICD-10-PCS; 2017-06-30)
DX: S22.088A Other fracture of T11-T12 vertebra, initial encounter for closed fracture (principal); S06.4X0A Epidural hemorrhage without loss of consciousness, initial encounter; S12.490A Other displaced fracture of fifth cervical vertebra, initial encounter for closed fracture; S32.018A Other fracture of first lumbar vertebra, initial encounter for closed fracture; S12.590A Other displaced fracture of sixth cervical vertebra, initial encounter for closed fracture; S12.690A Other displaced fracture of seventh cervical vertebra, initial encounter for closed fracture; S22.32XA Fracture of one rib, left side, initial encounter for closed fracture; D62 Acute posthemorrhagic anemia; S22.078A Other fracture of T9-T10 vertebra, initial encounter for closed fracture; I48.91 Unspecified atrial fibrillation; W13.2XXA Fall from, out of or through roof, initial encounter; Y93.9 Activity, unspecified; Y92.89 Other specified places as the place of occurrence of the external cause; Z79.82 Long term (current) use of aspirin; Z95.1 Presence of aortocoronary bypass graft; I25.10 Atherosclerotic heart disease of native coronary artery without angina pectoris; M25.78 Osteophyte, vertebrae; M45.2 Ankylosing spondylitis of cervical region; I10 Essential (primary) hypertension; I25.2 Old myocardial infarction; K21.9 Gastro-esophageal reflux disease without esophagitis; K44.9 Diaphragmatic hernia without obstruction or gangrene; R73.03 Prediabetes; G89.29 Other chronic pain; M54.5 Low back pain; Z96.641 Presence of right artificial hip joint; S02.2XXA Fracture of nasal bones, initial encounter for closed fracture; M85.80 Other specified disorders of bone density and structure, unspecified site; M48.04 Spinal stenosis, thoracic region; M48.061 Spinal stenosis, lumbar region without neurogenic claudication; E78.5 Hyperlipidemia, unspecified; R20.2 Paresthesia of skin
CPT/HCPCS: 36430; 71010; 72040; 72070; 72141; 72146; 72148; 76000; 76937; 80048; 83735; 84155; 85025; 85027; 85610; 85730; 86850; 86900; 86901; 86920; 87640; 87641; 93005; 93306; 94150; 94640; 94664; 99285; C1713; J0131; J0360; J0690; J1100; J1170; J1630; J1650; J2250; J2270; J2370; J2405; J2710; J3010; J3370; J3480; J7030; J7040; J7120; J7613; L0150; L0172; L0200; L0484; P9016; P9047